=== PATIENT | male | born 1930 | race Caucasian/White ===

== ENCOUNTER 2017-04-29 10:53 | Inpatient (IN) | payer MEDICARE, OTHER ==
--- NOTE | 2017-04-29 11:25 | ED Physician Chart ---
ED Chief Complaint/HPI - Patient Information Date Seen:: 04/29/17 Time Seen:: 11:05 Chief Complaint:: Agitation History of Present Illness:: onset x 2 days of agitation and combative behavior; no report of SIs, trauma, H/ As, neck pain, C/P, SOB, Abd. Pain, A/N/V/D/C, fever, chills, or urinary s/s Allergies:: Allergies Allergy/AdvReac Type Severity Reaction Status Date / Time clonazepam Allergy Verified 04/29/17 11:09 Vitals:: Vital Signs - 8 hr 04/29/17 11:09 Temp 96.1 F HR 60 RR 18 BP 119/62 O2 Sat % 92 Historian:: Patient Review:: Nurse's Note Reviewed ED Review of Systems - Review of Systems General/Constitutional: No fever, No chills, No weight loss, No weakness, No diaphoresis, No edema, No loss of appetite Skin: No skin lesions, No rash, No bruising Head: No headache, No light-headedness Eyes: No loss of vision, No pain, No diplopia ENT: No earache, No nasal drainage, No sore throat, No tinnitus Neck: No neck pain, No swelling, No thyromegaly, No stiffness, No mass noted Cardio Vascular: No chest pain, No palpitations, No PND, No orthopnea, No edema Pulmonary: No SOB, No cough, No sputum, No wheezing GI: No nausea, No vomiting, No diarrhea, No pain, No melena, No hematochezia, No constipation, No hematemesis G/U: No dysuria, No frequency, No hematuria, No nacturia Musculoskeletal: No bone or joint pain, No back pain, No muscle pain Endocrine: No polyuria, No polydipsia Psychiatric: Prior psych history, No depression, No anxiety, No suicidal ideation, No homicidal ideation, No auditory hallucination, No visual hallucination Hematopoietic: No bruising, No lymphadenopathy Allergic/Immuno: No urticaria, No angioedema Neurological: No syncope, No focal symptoms, No weakness, No paresthesia, No headache, No seizure, No dizziness, Confusion, No vertigo ED Past Medical History - Past Medical History Obtainable: Yes Past Medical History: HTN, CAD, Thyroid disorder, Arthritis, Dementia, Other ( BPH) Family History: Diabetes Melitus, HTN Social History: Non Smoker, No Alcohol, No Drug Use, Single Surgical History: None Psychiatricy History: Dementia Medication: Reviewed ED Physical Exam - Physical Examination General/Constitutional: Awake, Well-developed, well-nourished, Alert, No distress, GCS 15, Non-toxic appearing, Ambulatory Head: Atraumatic Eyes: Lids, conjuctiva normal, PERRL, EOMI Skin: Nl inspection, No rash, No skin lesions, No ecchymosis, Well hydrated, No lymphadenopathy ENMT: External ears, nose nl, TM canals nl, Nasal exam nl, Lips, teeth, gums nl , Oropharynx nl, Tonsils nl Neck: Nontender, Full ROM w/o pain, No JVD, No nuchal rigidity, No bruit, No mass, No stridor Respiratory: Nl effort/Exclusion, Clear to Auscultation, No Wheeze/Rhonchi/Rales Cardio Vascular: No murmur, gallop, rubs, NL S1 S2, Carotid/Femoral/Distal pulses equal bilaterally Other Cardio Vascular comments:: Irregular Irregular Rhythm GI: No tenderness/rebounding/guarding, No organomegaly, No hernia, Normal BS's, Nondistended, No mass/bruits, No McBurney tenderness : No CVA tenderness Extremities: No tenderness or effusion, Full ROM, normal strength in all extremities, No edema, Normal digits & nails Neuro/Psych: DTR's symmetric, Normal sensory exam, Normal motor strength, Mood normal, Normal gait, No focal deficits Other Neuro/Psych comments:: Disoriented and Confused; + Psychomotor Agitation; no SIs Misc: Normal back, No paraspinal tenderness ED Labs/Radiology/EKG Results - Lab Results Comments:: unremarkable - EKG Interpretations EKG Time:: 11:35 Rate & Rhythm: 81; Atrial fibrillation Comments:: non-specific st-t changes ED Septic Shock - . Is Septic Shock (SBP<90, OR Lactate>4 mmol\L) present?: No - <6hrs of presentation: Vital Signs: Vital Signs - 8 hr 04/29/17 11:09 Temp 96.1 F HR 60 RR 18 BP 119/62 O2 Sat % 92 ED Reassessment (Disposition) - Reassessment Reassessment Condition:: Improved - Diagnosis Diagnosis:: Chronic Atrial Fibrillation; Bipolar Disorder; Medically Cleared; Agitation - Aftercare/Follow up Instructions Aftercare/Follow-Up Instructions:: Counseled pt regarding lab results/diagnosis & need follow up, Counseled pt & family regarding lab results/diagnosis & need follow up - Patient Disposition Discharge/Transfer:: Acute Care w/in this hosp Admitted to:: [facility] Condition at Disposition:: Stable, Improved ED Discharge Plan - Patient Disposition Instructions: Psychosis
[2017-04-29 12:09] LABS: EOSINOPHILE ABSOLUTE 0.1 Th/cmm (0.1-0.4); HEMATOCRIT 42.9 % (41.0-60); HEMOGLOBIN 14.3 gm/dL (12-16); LYMPHOCYTE ABSOLUTE 1.7 Th/cmm (1.5-3.0); MEAN CELL VOLUME 97.8 fl (80-99); MEAN CORPUSCULAR HEMOGLOBIN 32.6 pg (27.0-31.0); MEAN CORPUSCULAR HGB CONC 33.3 pg (28.0-36.0); MEAN PLATELET VOLUME 10.8 fl; MONOCYTE ABSOLUTE 0.9 Th/cmm (0.3-1.0); NEUTROPHILE ABSOLUTE 1.8 Th/cmm (1.8-8.0); PLATELET COUNT 106 Th/cmm (150-400); RED BLOOD COUNT 4.39 Mil/cmm (3.80-5.80); RED CELL DISTRIBUTION WIDTH 14.7 % (11.5-20.0); WHITE BLOOD COUNT 4.5 Th/cmm (4.8-10.8)
[2017-04-29 12:14] LABS: ACETAMINOPHEN < 10.0 ug/mL (10.0-30.0); ALB/GLOB RATIO 1.1 (1.0-1.8); ALBUMIN 2.9 gm/dL (4.2-5.5); ALKALINE PHOSPHATASE 45 U/L (34-104); ANION GAP 8.3 (7.0-16.0); BILIRUBIN,TOTAL 1.6 mg/dL (0.3-1.0); BUN - UREA NITROGEN 16 mg/dL (7-25); CALCIUM SERUM 8.4 mg/dL (8.6-10.3); CARBON DIOXIDE 26.4 mEq/L (21.0-31.0); CHLORIDE 106 mEq/L (98-107); CHOLESTEROL 129 mg/dL (<200); CREATININE - SERUM 0.9 mg/dL (0.7-1.3); GLUCOSE 99 mg/dL (70-105); HDL -HIGH DENSITY LIPOPROTEIN 35 mg/dL (23-92); POTASSIUM SERUM 3.7 mEq/L (3.5-5.1); SALICYLATES (ASPIRIN) < 25.0 mg/L (30.0-100.0); SGOT 24 U/L (13-39); SGPT/ALT 11 U/L (7-52); SODIUM SERUM 137 mEq/L (136-145); TOTAL PROTEIN,SERUM 5.6 gm/dL (6.0-8.3); TRIGLYCERIDES 64 mg/dL (<150)
[2017-04-29 13:02] VITALS: BP 124/72
[2017-04-29] MEDS ORDERED: Maalox 30 mL Cup PO PRN (13:02)
[2017-04-29] MEDS ORDERED: Magnesium Hydroxide (MOM) 30 mL UDC PO PRN (13:02)
--- NOTE | 2017-04-29 17:29 | History and Physical ---
History of Present Illness - HPI Chief Complaint: agitation HPI: This is a 87 year old male admitted to the geropsych unit due to agitation and agression towards nursing staff. Vital Signs: Last Vital Signs Temp 97.3 F 04/29/17 16:26 Pulse 107 04/29/17 16:26 Resp 20 04/29/17 16:26 BP 91/53 04/29/17 16:26 Pulse Ox 97 04/29/17 16:26 Past Medical History Other History: htn cad hypothyroid arthritis dementia bph Family Medical History - Family Member Mother History Unknown: Yes Social History Smoke: No Alcohol: None Drugs: None Lives: Custodial - Medications Home Medications: Home Medication Medication Instructions Recorded Type Aspirin EC [Ecotrin] 81 mg PO DAILY 04/29/17 History Beclomethasone Dipropionate [Qvar] 8.7 gm IH DAILY 04/29/17 History Cholecalciferol (Vitamin D3) 5,000 unit PO DAILY 04/29/17 History [Vitamin D3] Divalproex Sodium [Depakote] 125 mg PO BID 04/29/17 History Donepezil Hcl [Aricept] 5 mg PO DAILY 04/29/17 History Levothyroxine [Synthroid] 0.05 mg PO QDAC 04/29/17 History Loratadine [Claritin] 10 mg PO DAILY 04/29/17 History Metoprolol Tartrate [Lopressor] 50 mg PO BID 04/29/17 History Tamsulosin [Flomax] 0.4 mg PO DAILY 04/29/17 History - Allergies Allergies/Adverse Reactions: Allergies Allergy/AdvReac Type Severity Reaction Status Date / Time clonazepam Allergy Verified 04/29/17 11:09 Review of Systems - Review of Systems Constitutional: Report: No Significant Eyes: Report: No Significant ENT: Report: No Significant Respiratory: Report: No Significant Cardiovascular: Report: No Significant Gastrointestinal: Report: No Significant Genitourinary: Report: No Significant Musculoskeletal: Report: No Significant Skin: Report: No Significant Neurological: Report: No Significant Physical Exam - Physical Exam HEENT: Report: Ears Nose Throat within normal limits Neck: Report: Within normal limits Cardiovascular Systems: Report: +s1/s2 noted Respiratory: Report: Breath Sounds are within normal limits Abdomen: Report: Non-tender to palpation Back: Report: Inspection of back is within normal limits. Extremities: Report: Non-tender to palpation. Skin: Report: Color of skin is within normal limits Neuro/Psych: Report: Mood affect is within normal limits - Assessment Assessment: Current Active Problems Problem Status Onset INCREASED AGITATION AND POOR ORAL INTAKE Acute htn cad hypothyroid arthritis dementia bph - Plan Plan: monitor bp monitor i+o continue current orders
[2017-04-30] MEDS: Levothyroxine 0.05 Mg Tab PO SCH (06:58)
[2017-04-30] MEDS ORDERED: BECLOMETHASONE DIPROPIONATE 8.7 GM IH SCH (09:00)
[2017-04-30] MEDS: Multivitamin Tab PO SCH (09:51)
--- NOTE | 2017-04-30 11:57 | General Progress Note ---
Subjective - Review of Systems Events since last encounter: patient still confused irritable in no signs of pain Objective - Results Result Diagrams: 04/29/17 11:35 04/29/17 11:35 Recent Labs: Laboratory Last Values WBC 4.5 Th/cmm (4.8-10.8) L 04/29/17 11:35 RBC 4.39 Mil/cmm (3.80-5.80) 04/29/17 11:35 Hgb 14.3 gm/dL (12-16) 04/29/17 11:35 Hct 42.9 % (41.0-60) 04/29/17 11:35 MCV 97.8 fl (80-99) 04/29/17 11:35 MCH 32.6 pg (27.0-31.0) H 04/29/17 11:35 MCHC Differential 33.3 pg (28.0-36.0) 04/29/17 11:35 RDW 14.7 % (11.5-20.0) 04/29/17 11:35 Plt Count 106 Th/cmm (150-400) L 04/29/17 11:35 MPV 10.8 fl 04/29/17 11:35 Sodium 137 mEq/L (136-145) 04/29/17 11:35 Potassium 3.7 mEq/L (3.5-5.1) 04/29/17 11:35 Chloride 106 mEq/L (98-107) 04/29/17 11:35 Carbon Dioxide 26.4 mEq/L (21.0-31.0) 04/29/17 11:35 Anion Gap 8.3 (7.0-16.0) 04/29/17 11:35 BUN 16 mg/dL (7-25) 04/29/17 11:35 Creatinine 0.9 mg/dL (0.7-1.3) 04/29/17 11:35 Est GFR ( Amer) TNP 04/29/17 11:35 Est GFR (Non-Af Amer) TNP 04/29/17 11:35 BUN/Creatinine Ratio 17.8 04/29/17 11:35 Glucose 99 mg/dL (70-105) 04/29/17 11:35 Hemoglobin A1c % 6.0 % (4.0-6.0) 04/29/17 11:35 Calcium 8.4 mg/dL (8.6-10.3) L 04/29/17 11:35 Total Bilirubin 1.6 mg/dL (0.3-1.0) H 04/29/17 11:35 AST 24 U/L (13-39) 04/29/17 11:35 ALT 11 U/L (7-52) 04/29/17 11:35 Alkaline Phosphatase 45 U/L (34-104) 04/29/17 11:35 Total Protein 5.6 gm/dL (6.0-8.3) L 04/29/17 11:35 Albumin 2.9 gm/dL (4.2-5.5) L 04/29/17 11:35 Globulin 2.7 gm/dL 04/29/17 11:35 Albumin/Globulin Ratio 1.1 (1.0-1.8) 04/29/17 11:35 Triglycerides 64 mg/dL (<150) 04/29/17 11:35 Cholesterol 129 mg/dL (<200) 04/29/17 11:35 LDL Cholesterol Direct 90 mg/dL (75-193) 04/29/17 11:35 HDL Cholesterol 35 mg/dL (23-92) 04/29/17 11:35 TSH 3.88 uIU/ml (0.34-5.60) 04/29/17 11:35 Salicylates < 25.0 mg/L (30.0-100.0) L 04/29/17 11:35 Acetaminophen < 10.0 ug/mL (10.0-30.0) L 04/29/17 11:35 Ethyl Alcohol < 10 mg/dL (0-10) 04/29/17 11:35 - Physical Exam Vitals and I&O: Vital Signs Temp 97.6 F 04/30/17 07:03 Pulse 98 04/30/17 07:03 Resp 20 04/30/17 07:03 BP 110/80 04/29/17 20:00 Pulse Ox 98 04/30/17 07:03 Intake & Output 04/29/17 04/30/17 04/30/17 18:59 06:59 18:59 Intake Total 370 Balance 370 Intake: Oral 370 Other: # Voids 1 # Bowel Movements 0 Active Medications: Current Medications Acetaminophen (Tylenol) 650 mg PO Q4HR PRN PRN Reason: Mild Pain / Temp above 100 Stop: 06/28/17 13:01 Al Hydrox/Mg Hydrox/Simethicone (Maalox) 30 ml PO Q4HR PRN PRN Reason: GI DISTRESS Stop: 06/28/17 13:01 Aspirin (Ecotrin) 81 mg PO DAILY [facility] Stop: 06/29/17 08:59 Last Admin: 04/30/17 09:51 Dose: 81 mg Cholecalciferol (Vitamin D3) 5,000 iu PO DAILY [facility] Stop: 06/29/17 08:59 Last Admin: 04/30/17 09:50 Dose: 5,000 iu Divalproex Sodium (Depakote Dr) 125 mg PO BID [facility] PRN Reason: Protocol Stop: 06/28/17 16:59 Last Admin: 04/30/17 09:51 Dose: 125 mg Donepezil HCl (Aricept) 5 mg PO DAILY [facility] Stop: 06/29/17 08:59 Last Admin: 04/30/17 09:51 Dose: 5 mg Levothyroxine Sodium (Synthroid) 0.05 mg PO QDAC [facility] Stop: 06/29/17 07:29 Last Admin: 04/30/17 06:58 Dose: Not Given Loratadine (Claritin) 10 mg PO DAILY [facility] Stop: 06/29/17 08:59 Last Admin: 04/30/17 09:51 Dose: 10 mg Lorazepam (Ativan) 0.5 mg PO Q4HR PRN; Protocol PRN Reason: Anxiety Stop: 05/29/17 13:01 Magnesium Hydroxide (Milk Of Magnesia) 30 ml PO HS PRN PRN Reason: Constipation Metoprolol Tartrate (Lopressor) 50 mg PO BID [facility] Stop: 06/28/17 16:59 Last Admin: 04/29/17 16:33 Dose: Not Given Miscellaneous (Beclomethasone Dipropionate [Qvar]) 8.7 gm IH DAILY [facility] Stop: 06/29/17 08:59 Multivitamins/Vitamin C (Theragran) 1 tab PO DAILY [facility] Stop: 06/29/17 08:59 Last Admin: 04/30/17 09:51 Dose: 1 tab Tamsulosin HCl (Flomax) 0.4 mg PO DAILY [facility] Stop: 06/29/17 08:59 Last Admin: 04/30/17 09:51 Dose: 0.4 mg Zolpidem Tartrate (Ambien) 5 mg PO HS PRN PRN Reason: Insomnia Stop: 06/28/17 13:01 General: No acute distress HEENT: Atraumatic Neck: Supple, no Thyromegaly Cardiovascular: Regular rate, Normal S1, Normal S2 Abdomen: Bowel sounds Assessment/Plan - Problem List Patient Problems: All Active Problems INCREASED AGITATION AND POOR ORAL INTAKE (Acute) - Plan Plan: as per psych will monitor
[2017-05-01] MEDS: Levothyroxine 0.05 Mg Tab PO SCH (06:49)
--- NOTE | 2017-05-01 10:01 | General Progress Note ---
Subjective - Review of Systems Events since last encounter: no change Objective - Results Result Diagrams: 04/29/17 11:35 04/29/17 11:35 Recent Labs: Laboratory Last Values WBC 4.5 Th/cmm (4.8-10.8) L 04/29/17 11:35 RBC 4.39 Mil/cmm (3.80-5.80) 04/29/17 11:35 Hgb 14.3 gm/dL (12-16) 04/29/17 11:35 Hct 42.9 % (41.0-60) 04/29/17 11:35 MCV 97.8 fl (80-99) 04/29/17 11:35 MCH 32.6 pg (27.0-31.0) H 04/29/17 11:35 MCHC Differential 33.3 pg (28.0-36.0) 04/29/17 11:35 RDW 14.7 % (11.5-20.0) 04/29/17 11:35 Plt Count 106 Th/cmm (150-400) L 04/29/17 11:35 MPV 10.8 fl 04/29/17 11:35 Sodium 137 mEq/L (136-145) 04/29/17 11:35 Potassium 3.7 mEq/L (3.5-5.1) 04/29/17 11:35 Chloride 106 mEq/L (98-107) 04/29/17 11:35 Carbon Dioxide 26.4 mEq/L (21.0-31.0) 04/29/17 11:35 Anion Gap 8.3 (7.0-16.0) 04/29/17 11:35 BUN 16 mg/dL (7-25) 04/29/17 11:35 Creatinine 0.9 mg/dL (0.7-1.3) 04/29/17 11:35 Est GFR ( Amer) TNP 04/29/17 11:35 Est GFR (Non-Af Amer) TNP 04/29/17 11:35 BUN/Creatinine Ratio 17.8 04/29/17 11:35 Glucose 99 mg/dL (70-105) 04/29/17 11:35 Hemoglobin A1c % 6.0 % (4.0-6.0) 04/29/17 11:35 Calcium 8.4 mg/dL (8.6-10.3) L 04/29/17 11:35 Total Bilirubin 1.6 mg/dL (0.3-1.0) H 04/29/17 11:35 AST 24 U/L (13-39) 04/29/17 11:35 ALT 11 U/L (7-52) 04/29/17 11:35 Alkaline Phosphatase 45 U/L (34-104) 04/29/17 11:35 Total Protein 5.6 gm/dL (6.0-8.3) L 04/29/17 11:35 Albumin 2.9 gm/dL (4.2-5.5) L 04/29/17 11:35 Globulin 2.7 gm/dL 04/29/17 11:35 Albumin/Globulin Ratio 1.1 (1.0-1.8) 04/29/17 11:35 Triglycerides 64 mg/dL (<150) 04/29/17 11:35 Cholesterol 129 mg/dL (<200) 04/29/17 11:35 LDL Cholesterol Direct 90 mg/dL (75-193) 04/29/17 11:35 HDL Cholesterol 35 mg/dL (23-92) 04/29/17 11:35 TSH 3.88 uIU/ml (0.34-5.60) 04/29/17 11:35 Salicylates < 25.0 mg/L (30.0-100.0) L 04/29/17 11:35 Acetaminophen < 10.0 ug/mL (10.0-30.0) L 04/29/17 11:35 Valproic Acid 23.6 ug/mL (50.0-100.0) L 05/01/17 08:30 Ethyl Alcohol < 10 mg/dL (0-10) 04/29/17 11:35 - Physical Exam Vitals and I&O: Vital Signs Temp 97.3 F 04/30/17 20:00 Pulse 100 04/30/17 20:00 Resp 19 04/30/17 20:00 BP 106/60 04/30/17 20:00 Pulse Ox 90 04/30/17 20:00 Intake & Output 04/30/17 05/01/17 05/01/17 18:59 06:59 18:59 Intake Total 250 Balance 250 Intake: Oral 250 Other: # Voids 2 # Bowel Movements 1 Active Medications: Current Medications Acetaminophen (Tylenol) 650 mg PO Q4HR PRN PRN Reason: Mild Pain / Temp above 100 Stop: 06/28/17 13:01 Al Hydrox/Mg Hydrox/Simethicone (Maalox) 30 ml PO Q4HR PRN PRN Reason: GI DISTRESS Stop: 06/28/17 13:01 Aspirin (Ecotrin) 81 mg PO DAILY [facility] Stop: 06/29/17 08:59 Last Admin: 04/30/17 09:51 Dose: 81 mg Cholecalciferol (Vitamin D3) 5,000 iu PO DAILY [facility] Stop: 06/29/17 08:59 Last Admin: 04/30/17 09:50 Dose: 5,000 iu Divalproex Sodium (Depakote Dr) 125 mg PO BID [facility] PRN Reason: Protocol Stop: 06/28/17 16:59 Last Admin: 04/30/17 16:56 Dose: 125 mg Donepezil HCl (Aricept) 10 mg PO DAILY [facility] Stop: 06/29/17 08:59 Levothyroxine Sodium (Synthroid) 0.05 mg PO QDAC [facility] Stop: 06/29/17 07:29 Last Admin: 05/01/17 06:49 Dose: 0.05 mg Loratadine (Claritin) 10 mg PO DAILY [facility] Stop: 06/29/17 08:59 Last Admin: 04/30/17 09:51 Dose: 10 mg Lorazepam (Ativan) 0.5 mg PO Q4HR PRN; Protocol PRN Reason: Anxiety Stop: 05/29/17 13:01 Magnesium Hydroxide (Milk Of Magnesia) 30 ml PO HS PRN PRN Reason: Constipation Metoprolol Tartrate (Lopressor) 50 mg PO BID [facility] Stop: 06/28/17 16:59 Last Admin: 04/30/17 16:56 Dose: Not Given Miscellaneous (Beclomethasone Dipropionate [Qvar]) 8.7 gm IH DAILY [facility] Stop: 06/29/17 08:59 Multivitamins/Vitamin C (Theragran) 1 tab PO DAILY [facility] Stop: 06/29/17 08:59 Last Admin: 04/30/17 09:51 Dose: 1 tab Tamsulosin HCl (Flomax) 0.4 mg PO DAILY [facility] Stop: 06/29/17 08:59 Last Admin: 04/30/17 09:51 Dose: 0.4 mg Zolpidem Tartrate (Ambien) 5 mg PO HS PRN PRN Reason: Insomnia Stop: 06/28/17 13:01 General: No acute distress HEENT: Atraumatic Neck: Supple, no Thyromegaly Cardiovascular: Regular rate, Normal S1, Normal S2 Abdomen: Bowel sounds Assessment/Plan - Problem List Patient Problems: All Active Problems INCREASED AGITATION AND POOR ORAL INTAKE (Acute) - Plan Plan: as per psych will monitor
[2017-05-01] MEDS: Multivitamin Tab PO SCH (10:18)
[2017-05-01] MEDS ORDERED: Albuterol/Ipratropium Neb 3 ML AERS HHN PRN (12:40)
--- NOTE | 2017-05-01 20:22 | Psychosocial Evaluation ---
DATE OF SERVICE: 04/30/2017 AGE: 87. SEX: Male. PHYSICIAN: Dr. Hurst. CHIEF COMPLAINT: Confusion and agitation. HISTORY OF PRESENT ILLNESS: The patient is an 87-year-old Fijian speaking male, who was admitted to the hospital from home because of increased agitation and confusion. The patient has been easily agitated and easily irritable. Also, has been suspicious and paranoid. Also, has been threatening others, mumbling, and unable to follow up staff directions or directions from people at home. He also has been disoriented and has been having disorganized thoughts. PAST PSYCHIATRIC HISTORY: Noncontributory. PAST MEDICAL HISTORY: No major medical problems. SOCIAL HISTORY: The patient lives with his family. No known alcohol or drug use. No legal issues. ALLERGIES: No known allergies. MENTAL STATUS EXAMINATION: The patient appears his stated age. Anxious. Irritable mood. Thought processes are with poverty of speech and disorganized and mumbles in Fijian language. The patient denied auditory or visual hallucinations, but seems to be responding to stimuli in Fijian language and taking to himself in Fijian language. He denied any thoughts of suicide or homicide. The patient is alert and oriented to situation, but not to date or person. Impaired immediate and recent memory, but intact remote memory and he remembered his date. Poor insight and poor judgment. ASSESSMENT: PRIMARY DIAGNOSIS: Unspecified psychosis. SECONDARY DIAGNOSIS: Rule out dementia. TREATMENT PLAN: We will monitor the patient's behavior closely. We will work on adjusting psychotropic medications. ESTIMATED LENGTH OF STAY: 5-7 days. THE PATIENT'S STRENGTHS AND WEAKNESSES: The patient's is compliant with taking his medications. Weaknesses are his confusion and ineffective coping. AFTER DISCHARGE PLAN: Outpatient treatment and followup will continue as an outpatient. CRITERIA FOR DISCHARGE: The patient will not be psychotic and stabilize psychotropic medications and establish outpatient treatment plans. JOB# [id number]
--- NOTE | 2017-05-02 01:01 | Progress Notes ---
DATE: SUBJECTIVE: Chart reviewed and ____ interviewed. The patient was a [place] speaking and also discussed the patient's condition with the staff and reviewed records and labs. The patient is still confused and he has disorganized thoughts. Also, is still mumbling and talking to himself. The patient also is still in angry and in irritable mood and refusing help. Otherwise, the patient is compliant with taking his medications and he slept well last night and he did take his Depakote with no problems. ASSESSMENT: The patient is still confused and agitated. TREATMENT PLAN: We will continue monitoring his behavior and his condition closely. Also, we will increase Aricept to 10 mg at bedtime. Also, we will get a Depakote blood level and we will continue to follow up. [facility]# [id number]
[2017-05-02] MEDS: Levothyroxine 0.05 Mg Tab PO SCH (06:31)
[2017-05-02] MEDS: Multivitamin Tab PO SCH ×2 (08:19→08:33)
--- NOTE | 2017-05-02 14:00 | Internal Medicine Prog Note ---
Internal Medicine Subjective - Subjective Service Date: 05/02/17 Patient seen and examined:: with staff Patient is:: awake, confused Per staff patient has:: tolerating meds Internal Medicine Objective - Results Result Diagrams: 04/29/17 11:35 04/29/17 11:35 Recent Labs: Laboratory Last Values WBC 4.5 Th/cmm (4.8-10.8) L 04/29/17 11:35 RBC 4.39 Mil/cmm (3.80-5.80) 04/29/17 11:35 Hgb 14.3 gm/dL (12-16) 04/29/17 11:35 Hct 42.9 % (41.0-60) 04/29/17 11:35 MCV 97.8 fl (80-99) 04/29/17 11:35 MCH 32.6 pg (27.0-31.0) H 04/29/17 11:35 MCHC Differential 33.3 pg (28.0-36.0) 04/29/17 11:35 RDW 14.7 % (11.5-20.0) 04/29/17 11:35 Plt Count 106 Th/cmm (150-400) L 04/29/17 11:35 MPV 10.8 fl 04/29/17 11:35 Sodium 137 mEq/L (136-145) 04/29/17 11:35 Potassium 3.7 mEq/L (3.5-5.1) 04/29/17 11:35 Chloride 106 mEq/L (98-107) 04/29/17 11:35 Carbon Dioxide 26.4 mEq/L (21.0-31.0) 04/29/17 11:35 Anion Gap 8.3 (7.0-16.0) 04/29/17 11:35 BUN 16 mg/dL (7-25) 04/29/17 11:35 Creatinine 0.9 mg/dL (0.7-1.3) 04/29/17 11:35 Est GFR ( Amer) TNP 04/29/17 11:35 Est GFR (Non-Af Amer) TNP 04/29/17 11:35 BUN/Creatinine Ratio 17.8 04/29/17 11:35 Glucose 99 mg/dL (70-105) 04/29/17 11:35 POC Glucose 77 MG/DL (70 - 105) 05/02/17 11:10 Hemoglobin A1c % 6.0 % (4.0-6.0) 04/29/17 11:35 Calcium 8.4 mg/dL (8.6-10.3) L 04/29/17 11:35 Total Bilirubin 1.6 mg/dL (0.3-1.0) H 04/29/17 11:35 AST 24 U/L (13-39) 04/29/17 11:35 ALT 11 U/L (7-52) 04/29/17 11:35 Alkaline Phosphatase 45 U/L (34-104) 04/29/17 11:35 Total Protein 5.6 gm/dL (6.0-8.3) L 04/29/17 11:35 Albumin 2.9 gm/dL (4.2-5.5) L 04/29/17 11:35 Globulin 2.7 gm/dL 04/29/17 11:35 Albumin/Globulin Ratio 1.1 (1.0-1.8) 04/29/17 11:35 Triglycerides 64 mg/dL (<150) 04/29/17 11:35 Cholesterol 129 mg/dL (<200) 04/29/17 11:35 LDL Cholesterol Direct 90 mg/dL (75-193) 04/29/17 11:35 HDL Cholesterol 35 mg/dL (23-92) 04/29/17 11:35 TSH 3.88 uIU/ml (0.34-5.60) 04/29/17 11:35 Salicylates < 25.0 mg/L (30.0-100.0) L 04/29/17 11:35 Acetaminophen < 10.0 ug/mL (10.0-30.0) L 04/29/17 11:35 Valproic Acid 23.6 ug/mL (50.0-100.0) L 05/01/17 08:30 Ethyl Alcohol < 10 mg/dL (0-10) 04/29/17 11:35 RPR NONREACTIVE (NONREACTIVE) 04/29/17 11:35 - Physical Exam Vitals and I&O: Vital Signs Temp 97.3 F 05/01/17 20:00 Pulse 119 05/01/17 21:18 Resp 20 05/01/17 21:18 BP 106/60 05/01/17 20:00 Pulse Ox 99 05/01/17 21:18 Intake & Output 05/01/17 05/02/17 05/02/17 18:59 06:59 18:59 Intake Total 500 120 Balance 500 120 Intake: Oral 500 120 Other: # Voids 3 2 # Bowel Movements 1 Active Medications: Current Medications Acetaminophen (Tylenol) 650 mg PO Q4HR PRN PRN Reason: Mild Pain / Temp above 100 Stop: 06/28/17 13:01 Al Hydrox/Mg Hydrox/Simethicone (Maalox) 30 ml PO Q4HR PRN PRN Reason: GI DISTRESS Stop: 06/28/17 13:01 Albuterol/Ipratropium (Duoneb Neb) 3 ml HHN Q4HRT PRN PRN Reason: Wheezing Stop: 06/30/17 12:39 Aspirin (Ecotrin) 81 mg PO DAILY [facility] Stop: 06/29/17 08:59 Last Admin: 05/02/17 08:33 Dose: Not Given Cholecalciferol (Vitamin D3) 5,000 iu PO DAILY [facility] Stop: 06/29/17 08:59 Last Admin: 05/02/17 08:33 Dose: Not Given Divalproex Sodium (Depakote Dr) 250 mg PO BID [facility] PRN Reason: Protocol Stop: 06/28/17 08:59 Last Admin: 05/02/17 08:32 Dose: Not Given Donepezil HCl (Aricept) 10 mg PO DAILY [facility] Stop: 06/29/17 08:59 Last Admin: 05/02/17 08:32 Dose: Not Given Levothyroxine Sodium (Synthroid) 0.05 mg PO QDAC [facility] Stop: 06/29/17 07:29 Last Admin: 05/02/17 06:31 Dose: Not Given Loratadine (Claritin) 10 mg PO DAILY [facility] Stop: 06/29/17 08:59 Last Admin: 05/02/17 08:33 Dose: Not Given Lorazepam (Ativan) 0.5 mg PO Q4HR PRN; Protocol PRN Reason: Anxiety Stop: 05/29/17 13:01 Last Admin: 05/01/17 16:06 Dose: 0.5 mg Magnesium Hydroxide (Milk Of Magnesia) 30 ml PO HS PRN PRN Reason: Constipation Metoprolol Tartrate (Lopressor) 50 mg PO BID [facility] Stop: 06/28/17 16:59 Last Admin: 05/02/17 08:32 Dose: Not Given Multivitamins/Vitamin C (Theragran) 1 tab PO DAILY [facility] Stop: 06/29/17 08:59 Last Admin: 05/02/17 08:33 Dose: Not Given Tamsulosin HCl (Flomax) 0.4 mg PO DAILY [facility] Stop: 06/29/17 08:59 Last Admin: 05/02/17 08:33 Dose: Not Given Zolpidem Tartrate (Ambien) 5 mg PO HS PRN PRN Reason: Insomnia Stop: 06/28/17 13:01 General: alert HEENT: NC/AT, PERRLA Neck: Supple Cardiovascular: RRR, Normal S1, Normal S2 Abdomen: soft, non-tender, non-distended, positive bowel sound Neurological: alert Internal Medicine Assmt/Plan - Assessment Assessment: Current Active Problems Problem Status Onset INCREASED AGITATION AND POOR ORAL INTAKE Acute htn cad hypothyroid arthritis dementia bph - Plan Plan: monitor bp monitor i+o continue current orders
--- NOTE | 2017-05-03 01:47 | Progress Notes ---
DATE: 05/02/2017 Chart reviewed and the patient interviewed. Also discussed the patient's condition with the staff and reviewed records and labs. The patient continued to be confused and disorganized. The patient also is still suspicious and paranoid and he is still easily agitated. He also is still in irritable mood. Also, has difficulty following directions. Otherwise, the patient is cooperative with treatment and compliant with taking his medications. ASSESSMENT: The patient is still psychotic. TREATMENT PLAN: Depakote blood level that was done yesterday, came back to be 23.6, which is below therapeutic level. We will increase Depakote to 250 mg twice a day and we will monitor the dose. Also, we will continue to work on his confusion. JOB# [id number]
[2017-05-03] MEDS: Levothyroxine 0.05 Mg Tab PO SCH (06:34)
[2017-05-03] MEDS: Multivitamin Tab PO SCH (08:40)
--- NOTE | 2017-05-03 18:35 | Progress Notes ---
DATE: 05/03/2017 SUBJECTIVE: The patient was seen in his room, lying in the bed. The patient is asleep but easily arousable. Otherwise the patient appears to be comfortable in no acute distress. OBJECTIVE: VITAL SIGNS: Temperature 97.6, heart rate of 88, respiration of 20, blood pressure 106/64, 98% on room air: HEENT: Head is atraumatic, normocephalic. Eyes: Bilateral conjunctivae are clear. Bilateral pupils are equally round and reactive. NECK: Supple. No JVD. CARDIOVASCULAR: S1 and S2, without murmur. PULMONARY: Clear to auscultation. GASTROINTESTINAL: Soft and nontender without guarding. Positive bowel sounds. MUSCULOSKELETAL: No clubbing, no cyanosis noted. ASSESSMENT: 1. Dementia. 2. Hypertension. 3. Hypothyroidism. 4. Osteoarthritis. 5. Benign prostatic hypertrophy. 6. Coronary artery disease. PLAN: We will keep the patient ____. JOB# [id number]
[2017-05-03 19:41] LABS: EOSINOPHILE ABSOLUTE 0.1 Th/cmm (0.1-0.4); HEMATOCRIT 45.4 % (41.0-60); HEMOGLOBIN 15.2 gm/dL (12-16); LYMPHOCYTE ABSOLUTE 1.4 Th/cmm (1.5-3.0); MANUAL DIFF REQUIRED? YES; MEAN CELL VOLUME 98.3 fl (80-99); MEAN CORPUSCULAR HEMOGLOBIN 32.9 pg (27.0-31.0); MEAN CORPUSCULAR HGB CONC 33.4 pg (28.0-36.0); MEAN PLATELET VOLUME 10.7 fl; MONOCYTE ABSOLUTE 0.9 Th/cmm (0.3-1.0); PLATELET COUNT 115 Th/cmm (150-400); RED BLOOD COUNT 4.62 Mil/cmm (3.80-5.80); RED CELL DISTRIBUTION WIDTH 15.4 % (11.5-20.0); WHITE BLOOD COUNT 5.4 Th/cmm (4.8-10.8)
[2017-05-03 19:52] LABS: ANION GAP 9.9 (7.0-16.0); BUN - UREA NITROGEN 15 mg/dL (7-25); CALCIUM SERUM 8.8 mg/dL (8.6-10.3); CARBON DIOXIDE 27.1 mEq/L (21.0-31.0); CHLORIDE 104 mEq/L (98-107); CREATININE - SERUM 0.7 mg/dL (0.7-1.3); GLUCOSE 132 mg/dL (70-105); SODIUM SERUM 137 mEq/L (136-145)
--- NOTE | 2017-05-03 20:00 | ER Physician Documentation ---
DATE OF SERVICE: LOCATION: [place] [address]. Rapid response was called, I came in to see the patient, the nurses were at the bedside, the supervisor coal handling was also at the bedside. The patient's rhythm was rapid atrial fibrillation. According to the nurse, oxygen saturation did fall down to below 80 and then it immediately within a matter of 1 or 2 minutes it again came back to normal. The patient was connected to the security monitor, it showed atrial flutter/fibrillation and the heart rate was around 135-140 beats per minute. According to the nurse, the patient is not taking his medication and so from morning, the patient has not been taking any of his medication, especially Lopressor that he is supposed to take for his atrial fibrillation to control his ventricular response. The patient is calm and poised. The patient was sitting on the wheelchair or so, then put in the bed. He is awake, alert, oriented. PHYSICAL EXAMINATION: GENERAL: Showed that he is comfortable. He has no edema over the legs. No gross congestive heart failure. CHEST: Clear. Trachea being central. Fairly good air entry in both lungs. HEART: Irregularly irregular heart sounds. S1, S2 are normal. Fourth heart sound is absent. Third heart sound is absent. ABDOMEN: Soft, benign and negative. CENTRAL NERVOUS SYSTEM: Grossly, the patient has psychiatric condition that exists as usual. CLINICAL IMPRESSION: The patient got a rapid response, probably on account of hypoxia, the reason for hypoxia is unknown. The patient has come back to 100% oxygen saturation and we will get blood gas done, chest x-ray done, EKG done and the labs done and give him some Lopressor 50 mg to start with, and the patient has other medical problems, psychiatric that will be continued. Informed the nurse to give the medication at the present moment. JOB# [id number]
[2017-05-03 20:11] LABS: EOSINOPHIL 2 % (0-5); LYMPHOCYTE 24 % (20-50); MONOCYTE 15 % (2-10); NEUTROPHILS 59 % (40-80)
[2017-05-03 20:12] LABS: PLATELET ESTIMATE SLIGHT DECREASED (NORMAL); PLATELET MORPHOLOGY NORMAL (NORMAL)
--- NOTE | 2017-05-03 23:16 | Progress Notes ---
DATE: 05/03/2017 SUBJECTIVE: The patient was seen in his room, lying in the bed. The patient is asleep, but he is arousable, otherwise the patient appears to be comfortable in no acute distress. The patient is a poor historian due to medical condition. OBJECTIVE: VITAL SIGNS: Temperature 98.8, heart rate 88, respiration 20, blood pressure 106/64, 98% on room air. HEENT: Head is atraumatic and normocephalic. Eyes: Bilateral conjunctivae are clear. Bilateral pupils are equally round and reactive. NECK: Supple. No JVD. CARDIOVASCULAR: S1 and S2, without murmur. PULMONARY: Clear to auscultation. GASTROINTESTINAL: Soft and nontender without guarding. Positive bowel sounds. MUSCULOSKELETAL: No clubbing, no cyanosis noted. ASSESSMENT: 1. Dementia. 2. Hypertension. 3. Hypothyroidism. 4. Osteoarthritis. 5. Benign prostatic hypertrophy. 6. Coronary artery disease. PLAN: We will keep the patient inpatient. We will follow up with the psychiatrist to monitor the patient's condition and behavior. Treatment and plans were discussed with the patient's nurse. Treatment and plans were discussed with Dr. Madrid. JOB# [id number]
[2017-05-04 00:16] LABS: pH 7.45 (7.35-7.45)
[2017-05-04 00:17] LABS: ALLEN TEST yes
--- NOTE | 2017-05-04 08:27 | Diagnostic Imaging Report ---
Exam: Chest x-ray HISTORY: Pneumonia. Findings: Frontal examination of the chest was reviewed no prior studies available comparison Thorax is intact. Mediastinal structures midline the heart is enlarged. There is evidence for right lower lobe pneumonia superimposed effusion. Mild left basilar atelectasis is noted. Bony thorax intact. The aortic arch calcified. IMPRESSION: Right lower lobe pneumonia and effusion. Left basilar atelectasis, pleural thickening. Hiatal hernia cannot be excluded clinical correlation and lateral examination of the chest might be helpful.
== END 2017-05-03 22:37 | DRG 885 ==
LOC: ER 10:53 → GERO 12:41
PROVIDERS: ADMIT Psychiatry & Neurology Psychiatry; ATTEND Psychiatry & Neurology Psychiatry
DX: F29 Unspecified psychosis not due to a substance or known physiological condition (principal); F03.91 Unspecified dementia, unspecified severity, with behavioral disturbance; I48.2 Chronic atrial fibrillation; I48.92 Unspecified atrial flutter; I10 Essential (primary) hypertension; I25.10 Atherosclerotic heart disease of native coronary artery without angina pectoris; E03.9 Hypothyroidism, unspecified; R09.02 Hypoxemia; M19.90 Unspecified osteoarthritis, unspecified site; F31.9 Bipolar disorder, unspecified; N40.0 Benign prostatic hyperplasia without lower urinary tract symptoms; Z88.8 Allergy status to other drugs, medicaments and biological substances; Z83.3 Family history of diabetes mellitus; Z82.49 Family history of ischemic heart disease and other diseases of the circulatory system; Z79.82 Long term (current) use of aspirin
CPT/HCPCS: 36415-UA; 71045-TC; 80048-TC; 80053-TC; 80061-TC; 80164-TC; 80320-TC; 80329-TC; 82803-TC; 82948-90; 83036-90; 83735-TC; 84443-TC; 85007-TC; 85025-TC; 85027-TC; 86592-TC; 93005; 94760; Z7610

== ENCOUNTER 2017-05-03 22:37 | Inpatient (IN) | payer MEDICARE, OTHER ==
--- NOTE | 2017-05-03 23:43 | Progress Notes ---
DATE: SUBJECTIVE: Chart reviewed and the patient interviewed. Also discussed the patient's condition with the staff and reviewed the records and labs. The patient did not sleep most of last night and he has been agitated. The patient also has been getting out of room and take it and has difficulty following staff instructions and gets agitated when staff tries to redirect him. He also is trying to get off the bed exposing himself to fall. Also, still mumbling and he is having difficulty expressing himself and expressing his feelings. On the other hand, the patient is compliant with taking medications with no side effect of medications. ASSESSMENT: The patient is still agitated and psychotic. TREATMENT PLAN: Continue to monitor his behavior and his condition closely. Also, continue to work on his irritability and continued followup. JOB# [id number]
[2017-05-03] MEDS ORDERED: Levofloxacin 500mg/100mL 500 MG/100 ML BAG IV ONE (23:45)
[2017-05-03] MEDS ORDERED: Sodium Chloride 0.45% 1,000 ML IV SCH (23:49)
[2017-05-04] MEDS ORDERED: Sodium Chloride 0.9% 500 ML IV ONE
[2017-05-04 00:06] LABS: EOSINOPHILE ABSOLUTE 0.1 Th/cmm (0.1-0.4); HEMATOCRIT 44.9 % (41.0-60); HEMOGLOBIN 15.1 gm/dL (12-16); LYMPHOCYTE ABSOLUTE 1.2 Th/cmm (1.5-3.0); MEAN CELL VOLUME 97.9 fl (80-99); MEAN CORPUSCULAR HEMOGLOBIN 32.8 pg (27.0-31.0); MEAN CORPUSCULAR HGB CONC 33.5 pg (28.0-36.0); MEAN PLATELET VOLUME 9.9 fl; NEUTROPHILE ABSOLUTE 2.5 Th/cmm (1.8-8.0); PLATELET COUNT 121 Th/cmm (150-400); RED BLOOD COUNT 4.59 Mil/cmm (3.80-5.80); RED CELL DISTRIBUTION WIDTH 15.7 % (11.5-20.0); WHITE BLOOD COUNT 4.8 Th/cmm (4.8-10.8)
[2017-05-04 00:25] LABS: ALB/GLOB RATIO 1.1 (1.0-1.8); ALBUMIN 3.5 gm/dL (4.2-5.5); ALKALINE PHOSPHATASE 62 U/L (34-104); ANION GAP 10.7 (7.0-16.0); BILIRUBIN,TOTAL 1.8 mg/dL (0.3-1.0); BUN - UREA NITROGEN 15 mg/dL (7-25); CALCIUM SERUM 9.2 mg/dL (8.6-10.3); CARBON DIOXIDE 27.9 mEq/L (21.0-31.0); CHLORIDE 104 mEq/L (98-107); CREATININE - SERUM 0.7 mg/dL (0.7-1.3); GLUCOSE 95 mg/dL (70-105); POTASSIUM SERUM 4.6 mEq/L (3.5-5.1); SGOT 29 U/L (13-39); SGPT/ALT 15 U/L (7-52); SODIUM SERUM 138 mEq/L (136-145); TOTAL PROTEIN,SERUM 6.7 gm/dL (6.0-8.3)
[2017-05-04] MEDS ORDERED: Sodium Chloride 0.9% 1,000 ML IV ONE (01:00)
[2017-05-04 01:29] VITALS: BP 101/71
[2017-05-04] MEDS: Sodium Chloride 0.9% 1,000 ML IV SCH ×2 (03:00→16:57)
[2017-05-04] MEDS ORDERED: Piperacillin Sodium/Tazobact 3.375 gm Vial IV ONE (04:29)
[2017-05-04 04:56] LABS: EOSINOPHILE ABSOLUTE 0.1 Th/cmm (0.1-0.4); HEMOGLOBIN 13.1 gm/dL (12-16); LYMPHOCYTE ABSOLUTE 1.1 Th/cmm (1.5-3.0); MEAN CELL VOLUME 96.9 fl (80-99); MEAN CORPUSCULAR HEMOGLOBIN 32.8 pg (27.0-31.0); MEAN CORPUSCULAR HGB CONC 33.8 pg (28.0-36.0); MEAN PLATELET VOLUME 10.3 fl; MONOCYTE ABSOLUTE 0.9 Th/cmm (0.3-1.0); NEUTROPHILE ABSOLUTE 2.4 Th/cmm (1.8-8.0); PLATELET COUNT 101 Th/cmm (150-400); RED BLOOD COUNT 4.01 Mil/cmm (3.80-5.80); RED CELL DISTRIBUTION WIDTH 15.1 % (11.5-20.0); WHITE BLOOD COUNT 4.5 Th/cmm (4.8-10.8)
[2017-05-04 05:15] LABS: ALBUMIN 2.6 gm/dL (4.2-5.5); ALKALINE PHOSPHATASE 47 U/L (34-104); ANION GAP 8.5 (7.0-16.0); BILIRUBIN,TOTAL 1.5 mg/dL (0.3-1.0); BUN - UREA NITROGEN 15 mg/dL (7-25); CALCIUM SERUM 7.9 mg/dL (8.6-10.3); CARBON DIOXIDE 25.9 mEq/L (21.0-31.0); CHLORIDE 109 mEq/L (98-107); CREATININE - SERUM 0.6 mg/dL (0.7-1.3); GLUCOSE 80 mg/dL (70-105); POTASSIUM SERUM 4.4 mEq/L (3.5-5.1); SGOT 23 U/L (13-39); SGPT/ALT 11 U/L (7-52); SODIUM SERUM 139 mEq/L (136-145); TOTAL PROTEIN,SERUM 5.2 gm/dL (6.0-8.3)
[2017-05-04 05:20] LABS: HEMATOCRIT 38.8 % (41.0-60)
[2017-05-04 06:20] LABS: BAND NEUTROPHILE 1 % (0-10); EOSINOPHIL 3 % (0-5); LYMPHOCYTE 33 % (20-50); MONOCYTE 16 % (2-10); NEUTROPHILS 45 % (40-80); TOTAL CELLS COUNTED 100
[2017-05-04 06:21] LABS: ATYPICAL LYMPH 2 %; HYPOCHROMIA 1+; PLATELET ESTIMATE DECREASED PLATELETS (NORMAL); PLATELET MORPHOLOGY GIANT PLATELETS SEEN (NORMAL)
[2017-05-04 06:34] LABS: BAND NEUTROPHILE 3 % (0-10); LYMPHOCYTE 18 % (20-50); MONOCYTE 26 % (2-10); NEUTROPHILS 48 % (40-80); TOTAL CELLS COUNTED 100
[2017-05-04 06:35] LABS: ANISOCYTOSIS 1+; ATYPICAL LYMPH 3 %; EOSINOPHIL 2 % (0-5); HYPOCHROMIA 1+; PLATELET ESTIMATE DECREASED PLATELETS (NORMAL)
[2017-05-04 07:20] LABS: URINE MICROSCOPIC INDICATED? YES; URINE SOURCE FOLEY PORT
[2017-05-04 07:22] LABS: URINE BILIRUBIN SMALL (NEGATIVE); URINE BLOOD MODERATE (NEGATIVE); URINE GLUCOSE (UA) NEGATIVE (NEGATIVE); URINE KETONE NEGATIVE (NEGATIVE); URINE LEUKOCYTE ESTERASE NEGATIVE (NEGATIVE); URINE NITRATE NEGATIVE (NEGATIVE); URINE PROTEIN TRACE mg/dL (NEGATIVE)
[2017-05-04 07:24] LABS: URINE CLARITY HAZY (CLEAR); URINE COLOR YELLOW
[2017-05-04 07:33] LABS: URINE BACTERIA MODERATE /hpf (NONE SEEN); URINE EPITHELIAL CELLS MODERATE /lpf (FEW)
[2017-05-04 07:34] LABS: URINE AMORPHOUS SEDIMENT FEW URATES (NONE SEEN)
[2017-05-04] MEDS: Albuterol/Ipratropium Neb 3 ML AERS HHN PRN ×2 (07:34→19:06)
--- NOTE | 2017-05-04 08:46 | Diagnostic Imaging Report ---
Exam: Chest x-ray. HISTORY: Pneumonia. Findings: Frontal examination of chest at 0758 hours reviewed compatible prior study the early demonstrates increased the right-sided pneumonia and effusion There is evidence for cardiomegaly superimposed congestion. Mild peribronchial infiltrate left base appreciated. Bony thorax is intact. The aortic arch calcified. IMPRESSION: 1. Cardiomegaly superimposed congestion. 2. Decreased the right-sided pneumonia and effusion 3. Left basilar atelectasis with mild peribronchial infiltrate. Follow-up examination is recommended.
--- NOTE | 2017-05-04 10:30 | General Progress Note ---
Subjective - Review of Systems Events since last encounter: patient still psychotic Objective - Results Result Diagrams: 05/04/17 04:45 05/04/17 04:45 Recent Labs: Laboratory Last Values WBC 4.5 Th/cmm (4.8-10.8) L 05/04/17 04:45 RBC 4.01 Mil/cmm (3.80-5.80) 05/04/17 04:45 Hgb 13.1 gm/dL (12-16) 05/04/17 04:45 Hct 38.8 % (41.0-60) L D 05/04/17 04:45 MCV 96.9 fl (80-99) 05/04/17 04:45 MCH 32.8 pg (27.0-31.0) H 05/04/17 04:45 MCHC Differential 33.8 pg (28.0-36.0) 05/04/17 04:45 RDW 15.1 % (11.5-20.0) 05/04/17 04:45 Plt Count 101 Th/cmm (150-400) L 05/04/17 04:45 MPV 10.3 fl 05/04/17 04:45 Band Neutrophils % 3 % (0-10) 05/04/17 04:45 Neutrophils (Manual) 48 % (40-80) 05/04/17 04:45 Lymphocytes 18 % (20-50) L 05/04/17 04:45 Monocytes 26 % (2-10) H 05/04/17 04:45 Eosinophils 2 % (0-5) 05/04/17 04:45 Atypical Lymphocytes 3 % 05/04/17 04:45 Hypochromia 1+ 05/04/17 04:45 Platelet Estimate DECREASED PLATELETS (NORMAL) 05/04/17 04:45 Platelet Morphology GIANT PLATELETS SEEN (NORMAL) 05/03/17 23:55 Anisocytosis 1+ 05/04/17 04:45 Microcytosis 1+ 05/04/17 04:45 Macrocytosis 1+ 05/04/17 04:45 RBC Morph Micro Appear NORMAL (NORMAL) 05/03/17 23:55 Sodium 139 mEq/L (136-145) 05/04/17 04:45 Potassium 4.4 mEq/L (3.5-5.1) 05/04/17 04:45 Chloride 109 mEq/L (98-107) H 05/04/17 04:45 Carbon Dioxide 25.9 mEq/L (21.0-31.0) 05/04/17 04:45 Anion Gap 8.5 (7.0-16.0) 05/04/17 04:45 BUN 15 mg/dL (7-25) 05/04/17 04:45 Creatinine 0.6 mg/dL (0.7-1.3) L 05/04/17 04:45 Est GFR ( Amer) TNP 05/04/17 04:45 Est GFR (Non-Af Amer) TNP 05/04/17 04:45 BUN/Creatinine Ratio 25.0 05/04/17 04:45 Glucose 80 mg/dL (70-105) 05/04/17 04:45 Whole Bld Lactic Acid 1.82 mmol/L (0.60-1.99) 05/03/17 23:55 Calcium 7.9 mg/dL (8.6-10.3) L 05/04/17 04:45 Total Bilirubin 1.5 mg/dL (0.3-1.0) H 05/04/17 04:45 AST 23 U/L (13-39) 05/04/17 04:45 ALT 11 U/L (7-52) 05/04/17 04:45 Alkaline Phosphatase 47 U/L (34-104) 05/04/17 04:45 Total Protein 5.2 gm/dL (6.0-8.3) L 05/04/17 04:45 Albumin 2.6 gm/dL (4.2-5.5) L 05/04/17 04:45 Globulin 2.6 gm/dL 05/04/17 04:45 Albumin/Globulin Ratio 1.0 (1.0-1.8) 05/04/17 04:45 Urine Source [place] 05/04/17 06:45 Urine Color YELLOW 05/04/17 06:45 Urine Clarity HAZY (CLEAR) 05/04/17 06:45 Urine pH 8.0 (4.6 - 8.0) 05/04/17 06:45 Ur Specific [place] 1.015 (1.005-1.030) 05/04/17 06:45 Urine Protein TRACE mg/dL (NEGATIVE) 05/04/17 06:45 Urine Glucose (UA) NEGATIVE mg/dL (NEGATIVE) 05/04/17 06:45 Urine Ketones NEGATIVE mg/dL (NEGATIVE) 05/04/17 06:45 Urine Blood MODERATE (NEGATIVE) H 05/04/17 06:45 Urine Nitrate NEGATIVE (NEGATIVE) 05/04/17 06:45 Urine Bilirubin SMALL (NEGATIVE) H 05/04/17 06:45 Urine Urobilinogen 2.0 E.U./dL (0.2 - 1.0) 05/04/17 06:45 Ur Leukocyte Esterase NEGATIVE (NEGATIVE) 05/04/17 06:45 Urine RBC 5-10 /hpf (0-5) H 05/04/17 06:45 Urine WBC 2-5 /hpf (0-5) H 05/04/17 06:45 Ur Epithelial Cells MODERATE /lpf (FEW) 05/04/17 06:45 Amorphous Sediment FEW URATES (NONE SEEN) 05/04/17 06:45 Urine Bacteria MODERATE /hpf (NONE SEEN) H 05/04/17 06:45 - Physical Exam Vitals and I&O: Vital Signs Temp 98.2 F 05/04/17 08:00 Pulse 102 05/04/17 08:00 Resp 15 05/04/17 08:00 BP 98/57 05/04/17 08:00 Pulse Ox 100 05/04/17 08:00 Intake & Output 05/03/17 05/04/17 05/04/17 18:59 06:59 18:59 Intake Total 1942.5 Balance 1942.5 Weight (lbs) 56.245 kg Intake: Intake, IV Amount 1942.5 Piperacillin Sodium/ 50 Tazobact 3.375 gm In Sodium Chloride 0.9% 50 ml @ 100 mls/hr IV Q8HR [facility] Rx#:[id number] Sodium Chloride 0.9% 1, 292.5 000 ml @ 70 mls/hr IV . [id number] [facility] Rx#:[id number] Oral 0 Other: # Voids 2 # Bowel Movements 0 Active Medications: Current Medications Albuterol/Ipratropium (Duoneb Neb) 3 ml HHN [id number] PRN PRN Reason: Wheezing Stop: 07/03/17 06:59 Last Admin: 05/04/17 07:34 Dose: 3 ml Divalproex Sodium (Depakote Dr) 250 mg PO BID CATHLEEN PRN Reason: Protocol Stop: 07/03/17 08:59 Last Admin: 05/04/17 08:22 Dose: 250 mg Levofloxacin (Levaquin Pb) 250 mg in 50 mls @ 50 mls/hr IV Q24HR [facility] Stop: 07/03/17 20:59 Piperacillin Sod/Tazobactam (Sod 3.375 gm/ Sodium Chloride) 50 mls @ 100 mls/ hr IV Q8HR [facility] Stop: 07/03/17 04:59 Last Infusion: 05/04/17 05:05 Dose: Infused Sodium Chloride (Nacl 0.9%) 1,000 mls @ 70 mls/hr IV .[id number] [facility] Stop: 07/03/17 01:59 Last Infusion: 05/04/17 06:00 Dose: 70 mls/hr Norepinephrine Bitartrate 4 mg (/ Dextrose) 254 mls @ 30.48 mls/hr IV TITR PRN ; Protocol; 8 MCG/MIN PRN Reason: BP MAINTENANCE (PER PROTOCOL) Stop: 07/03/17 09:26 Last Admin: 05/04/17 10:11 Dose: 8 mcg/min, 30.48 mls/hr Lorazepam (Ativan) 1 mg IVP Q6HR PRN; Protocol PRN Reason: restlessness and agitation Stop: 07/03/17 00:26 Lorazepam (Ativan) 0.5 mg PO Q4HR PRN; Protocol PRN Reason: Anxiety Stop: 07/03/17 05:50 General: No acute distress HEENT: Atraumatic Neck: Supple Cardiovascular: Regular rate, Normal S1, Normal S2 Abdomen: Bowel sounds Assessment/Plan - Problem List Patient Problems: All Active Problems INCREASED AGITATION AND POOR ORAL INTAKE (Acute) - Plan Plan: cpm
[2017-05-04] MEDS ORDERED: Diltiazem 5 mg/mL 5mL Vial IVP STA (12:23)
[2017-05-04] MEDS ORDERED: Diltiazem 5 mg/mL 5mL Vial IVP ONE (12:25)
--- NOTE | 2017-05-04 18:37 | Consultation ---
Consult Note - Consult Note Service Date: 05/04/17 Referring Physician: Makenzie Madrid Consult Note: PHYSICIAN Consultation Note: Date of Admission: 05/03/17 Purpose of Consultation: sepsis. Chief Complaint: Patient FARIDEH CORNELL was admitted to location Intensive Care Unit with LOW O2 SATURATION. History of Present Illness: 87 Year, male was brought from [facility] unit for hypoxemia and hypotension. His mentation was also altered and usual. He was brought to the ICU and levophed was started. So far there is no fever. CXR showed effusions and pneumonia. ID consult was called and zosyn was started. He is unable to give any meaningful history. Past Medical History: Allergies Allergy/AdvReac Type Severity Reaction Status Date / Time clonazepam Allergy Verified 04/29/17 11:09 Vital Signs Temp 96.8 F 05/04/17 16:00 Pulse 129 05/04/17 18:00 Resp 14 05/04/17 18:00 BP 123/87 05/04/17 18:00 Pulse Ox 100 05/04/17 18:00 Intake & Output 05/03/17 05/04/17 05/04/17 18:59 06:59 18:59 Intake Total 1942.5 790.304 Balance 1942.5 790.304 Weight (lbs) 56.245 kg Intake: Intake, IV Amount 1942.5 790.304 Norepinephrine 4 mg In 82.804 Dextrose 5% 250 ml @ 8 MCG/MIN 30.48 mls/hr IV TITR PRN Rx#:[id number] Piperacillin Sodium/ 50 Tazobact 3.375 gm In Sodium Chloride 0.9% 50 ml @ 100 mls/hr IV Q8HR [facility] Rx#:[id number] Sodium Chloride 0.9% 1, 292.5 707.5 000 ml @ 70 mls/hr IV . [id number] [facility]LE[facility] Rx#:[id number] Oral 0 Other: # Voids 2 # Bowel Movements 0 Laboratory Results - last 24 hr 05/03/17 05/03/17 05/03/17 23:55 23:55 23:55 WBC 4.8 RBC 4.59 Hgb 15.1 Hct 44.9 MCV 97.9 MCH 32.8 H MCHC Differential 33.5 RDW 15.7 Plt Count 121 L MPV 9.9 Band Neutrophils % 1 Neutrophils (Manual) 45 Lymphocytes 33 Monocytes 16 H Eosinophils 3 Atypical Lymphocytes 2 Hypochromia 1+ Platelet Estimate DECREASED PLATELETS Platelet Morphology GIANT PLATELETS SEEN Anisocytosis Microcytosis Macrocytosis 1+ RBC Morph Micro Appear NORMAL Sodium 138 Potassium 4.6 Chloride 104 Carbon Dioxide 27.9 Anion Gap 10.7 BUN 15 Creatinine 0.7 Est GFR ( Amer) TNP Est GFR (Non-Af Amer) TNP BUN/Creatinine Ratio 21.4 Glucose 95 Whole Bld Lactic Acid 1.82 Calcium 9.2 Total Bilirubin 1.8 H AST 29 ALT 15 Alkaline Phosphatase 62 Total Protein 6.7 Albumin 3.5 L Globulin 3.2 Albumin/Globulin Ratio 1.1 Urine Source Urine Color Urine Clarity Urine pH Ur Specific [place] Urine Protein Urine Glucose (UA) Urine Ketones Urine Blood Urine Nitrate Urine Bilirubin Urine Urobilinogen Ur Leukocyte Esterase Urine RBC Urine WBC Ur Epithelial Cells Amorphous Sediment Urine Bacteria 05/04/17 05/04/17 05/04/17 04:45 04:45 06:45 WBC 4.5 L RBC 4.01 Hgb 13.1 Hct 38.8 L D MCV 96.9 MCH 32.8 H MCHC Differential 33.8 RDW 15.1 Plt Count 101 L MPV 10.3 Band Neutrophils % 3 Neutrophils (Manual) 48 Lymphocytes 18 L Monocytes 26 H Eosinophils 2 Atypical Lymphocytes 3 Hypochromia 1+ Platelet Estimate DECREASED PLATELETS Platelet Morphology Anisocytosis 1+ Microcytosis 1+ Macrocytosis 1+ RBC Morph Micro Appear Sodium 139 Potassium 4.4 Chloride 109 H Carbon Dioxide 25.9 Anion Gap 8.5 BUN 15 Creatinine 0.6 L Est GFR ( Amer) TNP Est GFR (Non-Af Amer) TNP BUN/Creatinine Ratio 25.0 Glucose 80 Whole Bld Lactic Acid Calcium 7.9 L Total Bilirubin 1.5 H AST 23 ALT 11 Alkaline Phosphatase 47 Total Protein 5.2 L Albumin 2.6 L Globulin 2.6 Albumin/Globulin Ratio 1.0 Urine Source [place] Urine Color YELLOW Urine Clarity HAZY Urine pH 8.0 Ur Specific [place] 1.015 Urine Protein TRACE Urine Glucose (UA) NEGATIVE Urine Ketones NEGATIVE Urine Blood MODERATE H Urine Nitrate NEGATIVE Urine Bilirubin SMALL H Urine Urobilinogen 2.0 Ur Leukocyte Esterase NEGATIVE Urine RBC 5-10 H Urine WBC 2-5 H Ur Epithelial Cells MODERATE Amorphous Sediment FEW URATES Urine Bacteria MODERATE H Home Medication Medication Instructions Recorded Type Aspirin EC [Ecotrin] 81 mg PO DAILY 04/29/17 History Beclomethasone Dipropionate [Qvar] 8.7 gm IH DAILY 04/29/17 History Cholecalciferol (Vitamin D3) 5,000 unit PO DAILY 04/29/17 History [Vitamin D3] Divalproex Sodium [Depakote] 125 mg PO BID 04/29/17 History Donepezil Hcl [Aricept] 5 mg PO DAILY 04/29/17 History Levothyroxine [Synthroid] 0.05 mg PO QDAC 04/29/17 History Loratadine [Claritin] 10 mg PO DAILY 04/29/17 History Metoprolol Tartrate [Lopressor] 50 mg PO BID 04/29/17 History Tamsulosin [Flomax] 0.4 mg PO DAILY 04/29/17 History Current Medications Generic Name Dose Route Start Last Admin Trade Name Freq PRN Reason Stop Dose Admin Acetaminophen 650 mg 05/04/17 16:22 05/04/17 16:46 Tylenol PO 07/03/17 16:21 650 mg Q4H PRN Administration Pain (Mild) Albuterol/Ipratropium 3 ml 05/04/17 00:50 05/04/17 07:34 Duoneb Neb HHN 07/03/17 06:59 3 ml [id number] PRN Administration Wheezing Diltiazem HCl 5 mg 05/04/17 14:46 Cardizem IVP 07/03/17 14:59 Q6H PRN HR > 120 Divalproex Sodium 250 mg 05/04/17 09:00 05/04/17 16:[address] PO 07/03/17 08:59 250 mg BID CATHLEEN Administration Protocol Levofloxacin 250 mg in 50 mls @ 50 mls/hr 05/04/17 21:00 Levaquin Pb IV 07/03/17 20:59 Q24HR CATHLEEN Piperacillin Sod/Tazobactam 50 mls @ 100 mls/hr 05/04/17 05:00 05/04/17 12:37 Sod 3.375 gm/ Sodium Chloride IV 07/03/17 04:59 100 mls/hr Q8HR CATHLEEN Administration Sodium Chloride 1,000 mls @ 70 mls/hr 05/04/17 02:00 05/04/17 16:57 Nacl 0.9% IV 07/03/17 01:59 70 mls/hr .[id number] CATHLEEN Administration Norepinephrine Bitartrate 4 mg 254 mls @ 30.48 mls/hr 05/04/17 09:33 15:56 / Dextrose IV 07/03/17 09:26 4 mcg/min TITR PRN 15.24 mls/hr BP MAINTENANCE (PER PROTOCOL) Titration Protocol 8 MCG/MIN Lorazepam 1 mg 05/04/17 00:27 Ativan IVP 07/03/17 00:26 Q6HR PRN restlessness and agitation Protocol Lorazepam 0.5 mg 05/04/17 05:51 Ativan PO 07/03/17 05:50 Q4HR PRN Anxiety Protocol Methylprednisolone Sodium Succinate 40 mg 05/04/17 21:00 Solu-Medrol IVP 07/03/17 20:59 Q8HR CATHLEEN Review of Systems: A 12 point ROS was reviewed with the pertinent positive and negatives noted in the HPI. Social History Smoking Status Unknown if ever smoked Drug Use No: UNKNOWN Alcohol Use No: UNKNOWN Family Medical History Family Medical History Start: 05/03/17 23: 04 Freq: ONCE Status: Active Document 05/03/17 22:40 MSILVA (Rec: 05/04/17 02:40 MSILVA [id number]) Family Medical History Mother History Unknown Yes Physical Exam: General: Comfortable. lyig in the bed, no distress, Oral cavity mist pink tongue , HEENT: Head is normocephalic atraumatic. Oral cavity moist, pink tongue. Eyes: pallor. no icterus. Neck: supple, no JVD, carotid bruit, no use accassl\lry muscles. Cardio: S1 and S2 WNL Respiratory: vesicuar breath sounds. Abdominal: soft NT ND BS present, Genital/Urinary: Extremities: NCCE Neurological: Alert , awke oriented x 3, Assessment: 1. Pneumonia. 2. respiratory insufficiency. Plan: Continue Zosyn, Thank you, Dr Madrid for involving me in taking care of this case. Signed, Ezra Lyle M.D. [id number]
[2017-05-04] MEDS: Diltiazem 5 mg/mL 5mL Vial IVP PRN (19:52)
[2017-05-04] MEDS: Levofloxacin 250 mg/50 mL Premix Bag IV SCH (20:38)
[2017-05-04] MEDS: methylPREDNISolone SS 40 mg Vial IVP SCH (20:38)
--- NOTE | 2017-05-04 23:13 | Progress Notes ---
DATE: SUBJECTIVE: Chart reviewed and the patient interviewed. The patient had to be transferred from the Geropsych Unit to the Intensive Care Unit because of the drop in oxygen concentration. The patient is restless and he is anxious and staff was not able to give him at the time because of also decrease in his blood pressure. He also have episodes of irritability and anxiety, but that is more difficult and will continue psychotropic medications and will continue to follow up. [facility]# [id number]
--- NOTE | 2017-05-05 00:01 | Consultation ---
DATE OF CONSULTATION: 05/04/[address] Madrid. HISTORY OF PRESENT ILLNESS: This is an 87-year-old male who was admitted to Geropsych Unit for agitation, aggression, and patient apparently has developed some hypoxemia and was transferred here for further evaluation. The patient was given 3 breathing treatments and oxygen supplementations and improved. He is awake and alert now. Apparently, had a chest x-ray showed pneumonia and effusion and according to family, the patient has history of COPD, has history of smoking in the past, quit over 10 years ago. The patient has some minimal cough, but no distress at this point and unable to give any further history. PAST MEDICAL HISTORY: As above. SOCIAL HISTORY: The patient smoked heavily for many years, quit 10 years ago. REVIEW OF SYSTEMS: Unable to obtain because of the patient's condition. PHYSICAL EXAMINATION: GENERAL: The patient is awake, weak, in no distress. VITAL SIGNS: Temperature 98.2, pulse is 85, respirations 20, blood pressure 104/60 and saturation is 100%. HEENT: Atraumatic and normocephalic. Pupils reactive to light and accommodation. Ears, nose and throat normal. NECK: Supple. No JVD. CHEST: There are few rhonchi bilaterally, fair air entry. HEART: Regular rate and rhythm. ABDOMEN: Soft and nontender. EXTREMITIES: No edema. LABORATORY DATA: WBC is 4.5, hemoglobin 13.1 with hematocrit 38.8, platelets is 101. Sodium 139, potassium 4.4, BUN is 15 and creatinine 0.6. DIAGNOSTIC DATA: Chest x-ray today showed right lower lobe infiltrate, small effusion and cardiomegaly. IMPRESSION: This is an 87-year-old male with: 1. Pneumonia. 2. Respiratory failure, hypoxemia. 3. Chronic obstructive pulmonary disease with exacerbation. PLAN: 1. IV antibiotics. 2. Nebulizer. 3. IV Solu-Medrol. 4. Follow up chest x-ray and observe closely. Discussed with family in detail. Thank you very much for this consultation. JOB# [id number]
--- NOTE | 2017-05-05 04:56 | Consultation ---
DATE OF CONSULTATION: The patient is in ICU. HISTORY OF PRESENT ILLNESS: This 87-year-old male was seen and examined at the courtesy of Dr. Madrid. The patient was admitted here. He was transferred here from [facility]. He was transferred here with hypoxemia and palpitations. He was admitted to ICU. He was found to be in atrial fibrillation with rapid ventricular response, blood pressure was low, so he was started on Levophed. He was given Cardizem 5 mg IV. The patient does have a history of atherosclerotic heart disease. He was also found to have pneumonia and pleural effusion. No other proper history available from the patient, no information available from the patient. The patient does apparently have psych problems. LABORATORY DATA AND DIAGNOSTIC STUDIES: On reviewing the lab, the sodium was 139, potassium 4.4, chloride 109, CO2 25.9, glucose 80, BUN 15, creatinine 0.6. Total protein was 5.9, albumin 2.6, globulin 2.6. Bilirubin total of 1.5, AST 23, ALT 11, and alkaline phosphatase 47. WBC count was 4.5, hemoglobin 13.1, hematocrit 38.8, and platelet count was 101. Blood gases revealed pH of 7.450, pCO2 37, pO2 68. Magnesium was 1.9. Hemoglobin A1c 6. Amylase was 19, lipase was 5. Cholesterol 129, triglycerides 64, HDL 35, and LDL 90. Lactic acid 1.82 that is normal. Chest x-ray revealed right lower lobe pneumonia with small effusion. EKG revealed atrial fibrillation with rapid ventricular response, poor R wave progression in the precordial leads. IMPRESSION: Atrial fibrillation with rapid ventricular response, atherosclerotic heart disease, hypoxemia, pneumonia, pleural effusion, hypotension, could there be a septic shock, thrombocytopenia. DISCUSSION: This elderly gentleman who is already on Levophed to maintain the blood pressure is only on Levophed 4 mcg. Cardizem has been ordered for p.r.n. If heart rate remains above 120, we will start Cardizem drip. When blood pressure becomes stable, p.o. medication with Cardizem and/or beta taco be added. We will also get echocardiogram in a.m., thyroid profile in a.m. The patient also should be on anticoagulation. Thank you, Dr. Sirisha Lyle will be following him from the morning. JOB# [id number]
[2017-05-05] MEDS: methylPREDNISolone SS 40 mg Vial IVP SCH ×3 (04:58→20:52)
[2017-05-05] MEDS: Diltiazem 5 mg/mL 5mL Vial IVP PRN ×2 (06:13→13:20)
[2017-05-05] MEDS: Albuterol/Ipratropium Neb 3 ML AERS HHN PRN ×4 (07:46→19:02)
--- NOTE | 2017-05-05 07:49 | Diagnostic Imaging Report ---
CHEST X-RAY: AP view INDICATION: Shortness of breath COMPARISON: 05/04/2017 FINDINGS: Bilateral pleural effusions are seen with right larger the left with fluid in the right fissure. Diffuse right lung infiltrates are noted. Cardiomegaly is noted. There is probably superimposed congestion. IMPRESSION: Bilateral pleural effusions right larger than left with diffuse right lung infiltrates. There is probable mild congestion Cardiomegaly.
[2017-05-05] MEDS: Sodium Chloride 0.9% 1,000 ML IV SCH ×2 (09:59→20:59)
--- NOTE | 2017-05-05 12:40 | General Progress Note ---
Subjective - Review of Systems Events since last encounter: admitted for atrial fib in no acute distress Objective - Results Result Diagrams: 05/04/17 04:45 05/04/17 04:45 Recent Labs: Laboratory Last Values WBC 4.5 Th/cmm (4.8-10.8) L 05/04/17 04:45 RBC 4.01 Mil/cmm (3.80-5.80) 05/04/17 04:45 Hgb 13.1 gm/dL (12-16) 05/04/17 04:45 Hct 38.8 % (41.0-60) L D 05/04/17 04:45 MCV 96.9 fl (80-99) 05/04/17 04:45 MCH 32.8 pg (27.0-31.0) H 05/04/17 04:45 MCHC Differential 33.8 pg (28.0-36.0) 05/04/17 04:45 RDW 15.1 % (11.5-20.0) 05/04/17 04:45 Plt Count 101 Th/cmm (150-400) L 05/04/17 04:45 MPV 10.3 fl 05/04/17 04:45 Band Neutrophils % 3 % (0-10) 05/04/17 04:45 Neutrophils (Manual) 48 % (40-80) 05/04/17 04:45 Lymphocytes 18 % (20-50) L 05/04/17 04:45 Monocytes 26 % (2-10) H 05/04/17 04:45 Eosinophils 2 % (0-5) 05/04/17 04:45 Atypical Lymphocytes 3 % 05/04/17 04:45 Hypochromia 1+ 05/04/17 04:45 Platelet Estimate DECREASED PLATELETS (NORMAL) 05/04/17 04:45 Platelet Morphology GIANT PLATELETS SEEN (NORMAL) 05/03/17 23:55 Anisocytosis 1+ 05/04/17 04:45 Microcytosis 1+ 05/04/17 04:45 Macrocytosis 1+ 05/04/17 04:45 RBC Morph Micro Appear NORMAL (NORMAL) 05/03/17 23:55 Sodium 139 mEq/L (136-145) 05/04/17 04:45 Potassium 4.4 mEq/L (3.5-5.1) 05/04/17 04:45 Chloride 109 mEq/L (98-107) H 05/04/17 04:45 Carbon Dioxide 25.9 mEq/L (21.0-31.0) 05/04/17 04:45 Anion Gap 8.5 (7.0-16.0) 05/04/17 04:45 BUN 15 mg/dL (7-25) 05/04/17 04:45 Creatinine 0.6 mg/dL (0.7-1.3) L 05/04/17 04:45 Est GFR ( Amer) TNP 05/04/17 04:45 Est GFR (Non-Af Amer) TNP 05/04/17 04:45 BUN/Creatinine Ratio 25.0 05/04/17 04:45 Glucose 80 mg/dL (70-105) 05/04/17 04:45 Whole Bld Lactic Acid 1.82 mmol/L (0.60-1.99) 05/03/17 23:55 Calcium 7.9 mg/dL (8.6-10.3) L 05/04/17 04:45 Total Bilirubin 1.5 mg/dL (0.3-1.0) H 05/04/17 04:45 AST 23 U/L (13-39) 05/04/17 04:45 ALT 11 U/L (7-52) 05/04/17 04:45 Alkaline Phosphatase 47 U/L (34-104) 05/04/17 04:45 Total Protein 5.2 gm/dL (6.0-8.3) L 05/04/17 04:45 Albumin 2.6 gm/dL (4.2-5.5) L 05/04/17 04:45 Globulin 2.6 gm/dL 05/04/17 04:45 Albumin/Globulin Ratio 1.0 (1.0-1.8) 05/04/17 04:45 Urine Source [place] 05/04/17 06:45 Urine Color YELLOW 05/04/17 06:45 Urine Clarity HAZY (CLEAR) 05/04/17 06:45 Urine pH 8.0 (4.6 - 8.0) 05/04/17 06:45 Ur Specific [place] 1.015 (1.005-1.030) 05/04/17 06:45 Urine Protein TRACE mg/dL (NEGATIVE) 05/04/17 06:45 Urine Glucose (UA) NEGATIVE mg/dL (NEGATIVE) 05/04/17 06:45 Urine Ketones NEGATIVE mg/dL (NEGATIVE) 05/04/17 06:45 Urine Blood MODERATE (NEGATIVE) H 05/04/17 06:45 Urine Nitrate NEGATIVE (NEGATIVE) 05/04/17 06:45 Urine Bilirubin SMALL (NEGATIVE) H 05/04/17 06:45 Urine Urobilinogen 2.0 E.U./dL (0.2 - 1.0) 05/04/17 06:45 Ur Leukocyte Esterase NEGATIVE (NEGATIVE) 05/04/17 06:45 Urine RBC 5-10 /hpf (0-5) H 05/04/17 06:45 Urine WBC 2-5 /hpf (0-5) H 05/04/17 06:45 Ur Epithelial Cells MODERATE /lpf (FEW) 05/04/17 06:45 Amorphous Sediment FEW URATES (NONE SEEN) 05/04/17 06:45 Urine Bacteria MODERATE /hpf (NONE SEEN) H 05/04/17 06:45 - Physical Exam Vitals and I&O: Vital Signs Temp 97.3 F 05/05/17 08:00 Pulse 123 05/05/17 11:52 Resp 16 05/05/17 11:52 BP 109/75 05/05/17 11:30 Pulse Ox 100 05/05/17 11:52 Intake & Output 05/04/17 05/05/17 05/05/17 18:59 06:59 18:59 Intake Total 878.150 399.011 3725.189 Output Total 1000 Balance 878.150 -475.538 4498.189 Weight (lbs) 54.431 kg Intake: Intake, IV Amount 878.150 657.774 0963.189 Levofloxacin 250mg/50mL 50 250 mg In 50 ml @ 50 mls/ hr IV Q24HR [facility] Rx#: [id number] Norepinephrine 4 mg In 120.650 114.871 111.189 Dextrose 5% 250 ml @ 8 MCG/MIN 30.48 mls/hr IV TITR PRN Rx#:[id number] Piperacillin Sodium/ 50 100 Tazobact 3.375 gm In Sodium Chloride 0.9% 50 ml @ 100 mls/hr IV Q8HR [facility] Rx#:[id number] Sodium Chloride 0.9% 1, 707.5 1000 000 ml @ 70 mls/hr IV . [id number] [facility] Rx#:[id number] Oral 150 Output: Urine 1000 Other: # Bowel Movements 0 Active Medications: Current Medications Acetaminophen (Tylenol) 650 mg PO Q4H PRN PRN Reason: Pain (Mild) Stop: 07/03/17 16:21 Last Admin: 05/04/17 16:46 Dose: 650 mg Albuterol/Ipratropium (Duoneb Neb) 3 ml HHN [id number] PRN PRN Reason: Wheezing Stop: 07/03/17 06:59 Last Admin: 05/05/17 11:50 Dose: 3 ml Diltiazem HCl (Cardizem) 5 mg IVP Q6H PRN PRN Reason: HR > 120 Stop: 07/03/17 14:59 Last Admin: 05/05/17 06:13 Dose: 5 mg Divalproex Sodium (Depakote Dr) 250 mg PO BID [facility] PRN Reason: Protocol Stop: 07/03/17 08:59 Last Admin: 05/05/17 08:08 Dose: 250 mg Levofloxacin (Levaquin Pb) 250 mg in 50 mls @ 50 mls/hr IV Q24HR [facility] Stop: 07/03/17 20:59 Last Infusion: 05/04/17 21:36 Dose: Infused Piperacillin Sod/Tazobactam (Sod 3.375 gm/ Sodium Chloride) 50 mls @ 100 mls/ hr IV Q8HR [facility] Stop: 07/03/17 04:59 Last Infusion: 05/05/17 05:28 Dose: Infused Sodium Chloride (Nacl 0.9%) 1,000 mls @ 70 mls/hr IV .[id number] [facility] Stop: 07/03/17 01:59 Last Admin: 05/05/17 09:59 Dose: 70 mls/hr Norepinephrine Bitartrate 4 mg (/ Dextrose) 254 mls @ 30.48 mls/hr IV TITR PRN ; Protocol; 8 MCG/MIN PRN Reason: BP MAINTENANCE (PER PROTOCOL) Stop: 07/03/17 09:26 Last Titration: 05/05/17 10:02 Dose: 2 mcg/min, 7.62 mls/hr Lorazepam (Ativan) 1 mg IVP Q6HR PRN; Protocol PRN Reason: restlessness and agitation Stop: 07/03/17 00:26 Lorazepam (Ativan) 0.5 mg PO Q4HR PRN; Protocol PRN Reason: Anxiety Stop: 07/03/17 05:50 Methylprednisolone Sodium Succinate (Solu-Medrol) 40 mg IVP Q8HR [facility] Stop: 07/03/17 20:59 Last Admin: 05/05/17 04:58 Dose: 40 mg General: No acute distress HEENT: Atraumatic Neck: Supple Cardiovascular: Regular rate, Normal S1, Normal S2 Abdomen: Bowel sounds Assessment/Plan - Problem List Patient Problems: All Active Problems INCREASED AGITATION AND POOR ORAL INTAKE (Acute) - Plan Plan: cpm
[2017-05-05] MEDS ORDERED: Probiotic Screen MC PRN (16:19)
--- NOTE | 2017-05-05 19:46 | Infectious Disease Prog Note ---
Infectious Disease Subjective - Review of Systems Service Date: 05/05/17 Subjective: Feeling better, there is no fever. Infectious Disease Objective - Results Result Diagrams: 05/04/17 04:45 05/06/17 04:15 Recent Labs: Laboratory Last Values WBC 4.5 Th/cmm (4.8-10.8) L 05/04/17 04:45 RBC 4.01 Mil/cmm (3.80-5.80) 05/04/17 04:45 Hgb 13.1 gm/dL (12-16) 05/04/17 04:45 Hct 38.8 % (41.0-60) L D 05/04/17 04:45 MCV 96.9 fl (80-99) 05/04/17 04:45 MCH 32.8 pg (27.0-31.0) H 05/04/17 04:45 MCHC Differential 33.8 pg (28.0-36.0) 05/04/17 04:45 RDW 15.1 % (11.5-20.0) 05/04/17 04:45 Plt Count 101 Th/cmm (150-400) L 05/04/17 04:45 MPV 10.3 fl 05/04/17 04:45 Band Neutrophils % 3 % (0-10) 05/04/17 04:45 Neutrophils (Manual) 48 % (40-80) 05/04/17 04:45 Lymphocytes 18 % (20-50) L 05/04/17 04:45 Monocytes 26 % (2-10) H 05/04/17 04:45 Eosinophils 2 % (0-5) 05/04/17 04:45 Atypical Lymphocytes 3 % 05/04/17 04:45 Hypochromia 1+ 05/04/17 04:45 Platelet Estimate DECREASED PLATELETS (NORMAL) 05/04/17 04:45 Platelet Morphology GIANT PLATELETS SEEN (NORMAL) 05/03/17 23:55 Anisocytosis 1+ 05/04/17 04:45 Microcytosis 1+ 05/04/17 04:45 Macrocytosis 1+ 05/04/17 04:45 RBC Morph Micro Appear NORMAL (NORMAL) 05/03/17 23:55 Sodium 139 mEq/L (136-145) 05/04/17 04:45 Potassium 4.4 mEq/L (3.5-5.1) 05/04/17 04:45 Chloride 109 mEq/L (98-107) H 05/04/17 04:45 Carbon Dioxide 25.9 mEq/L (21.0-31.0) 05/04/17 04:45 Anion Gap 8.5 (7.0-16.0) 05/04/17 04:45 BUN 15 mg/dL (7-25) 05/04/17 04:45 Creatinine 0.6 mg/dL (0.7-1.3) L 05/04/17 04:45 Est GFR ( Amer) TNP 05/04/17 04:45 Est GFR (Non-Af Amer) TNP 05/04/17 04:45 BUN/Creatinine Ratio 25.0 05/04/17 04:45 Glucose 80 mg/dL (70-105) 05/04/17 04:45 Whole Bld Lactic Acid 1.82 mmol/L (0.60-1.99) 05/03/17 23:55 Calcium 7.9 mg/dL (8.6-10.3) L 05/04/17 04:45 Total Bilirubin 1.5 mg/dL (0.3-1.0) H 05/04/17 04:45 AST 23 U/L (13-39) 05/04/17 04:45 ALT 11 U/L (7-52) 05/04/17 04:45 Alkaline Phosphatase 47 U/L (34-104) 05/04/17 04:45 Total Protein 5.2 gm/dL (6.0-8.3) L 05/04/17 04:45 Albumin 2.6 gm/dL (4.2-5.5) L 05/04/17 04:45 Globulin 2.6 gm/dL 05/04/17 04:45 Albumin/Globulin Ratio 1.0 (1.0-1.8) 05/04/17 04:45 Urine Source [place] 05/04/17 06:45 Urine Color YELLOW 05/04/17 06:45 Urine Clarity HAZY (CLEAR) 05/04/17 06:45 Urine pH 8.0 (4.6 - 8.0) 05/04/17 06:45 Ur Specific [place] 1.015 (1.005-1.030) 05/04/17 06:45 Urine Protein TRACE mg/dL (NEGATIVE) 05/04/17 06:45 Urine Glucose (UA) NEGATIVE mg/dL (NEGATIVE) 05/04/17 06:45 Urine Ketones NEGATIVE mg/dL (NEGATIVE) 05/04/17 06:45 Urine Blood MODERATE (NEGATIVE) H 05/04/17 06:45 Urine Nitrate NEGATIVE (NEGATIVE) 05/04/17 06:45 Urine Bilirubin SMALL (NEGATIVE) H 05/04/17 06:45 Urine Urobilinogen 2.0 E.U./dL (0.2 - 1.0) 05/04/17 06:45 Ur Leukocyte Esterase NEGATIVE (NEGATIVE) 05/04/17 06:45 Urine RBC 5-10 /hpf (0-5) H 05/04/17 06:45 Urine WBC 2-5 /hpf (0-5) H 05/04/17 06:45 Ur Epithelial Cells MODERATE /lpf (FEW) 05/04/17 06:45 Amorphous Sediment FEW URATES (NONE SEEN) 05/04/17 06:45 Urine Bacteria MODERATE /hpf (NONE SEEN) H 05/04/17 06:45 - Physical Exam Vitals and I&O: Vital Signs Temp 97.5 F 05/05/17 18:00 Pulse 125 05/05/17 19:02 Resp 18 05/05/17 19:02 BP 126/75 05/05/17 18:45 Pulse Ox 10 05/05/17 19:02 Intake & Output 05/05/17 05/05/17 05/06/17 06:59 18:59 06:59 Intake Total 931.697 8625.189 Output Total 1000 350 Balance -302.630 6257.189 Weight (lbs) 54.431 kg 54.431 kg Intake: Intake, IV Amount 443.003 8442.189 Amiodarone 150 mg In 103 Dextrose 5% 100 ml @ 618 mls/hr IV ONCE ONE Rx#: [id number] Levofloxacin 250mg/50mL 50 250 mg In 50 ml @ 50 mls/ hr IV Q24HR [facility] Rx#: [id number] Norepinephrine 4 mg In 114.871 111.189 Dextrose 5% 250 ml @ 8 MCG/MIN 30.48 mls/hr IV TITR PRN Rx#:[id number] Piperacillin Sodium/ 100 50 Tazobact 3.375 gm In Sodium Chloride 0.9% 50 ml @ 100 mls/hr IV Q8HR [facility] Rx#:[id number] Sodium Chloride 0.9% 1, 1000 000 ml @ 70 mls/hr IV . [id number] [facility] Rx#:[id number] Oral 150 450 Output: Urine 1000 350 Other: # Bowel Movements 0 Active Medications: Current Medications Acetaminophen (Tylenol) 650 mg PO Q4H PRN PRN Reason: Pain (Mild) Stop: 07/03/17 16:21 Last Admin: 05/04/17 16:46 Dose: 650 mg Albuterol/Ipratropium (Duoneb Neb) 3 ml HHN [id number] PRN PRN Reason: Wheezing Stop: 07/03/17 06:59 Last Admin: 05/05/17 19:02 Dose: 3 ml Diltiazem HCl (Cardizem) 5 mg IVP Q6H PRN PRN Reason: HR > 120 Stop: 07/03/17 14:59 Last Admin: 05/05/17 13:20 Dose: 5 mg Divalproex Sodium (Depakote Dr) 250 mg PO BID [facility] PRN Reason: Protocol Stop: 07/03/17 08:59 Last Admin: 05/05/17 17:49 Dose: 250 mg Levofloxacin (Levaquin Pb) 250 mg in 50 mls @ 50 mls/hr IV Q24HR [facility] Stop: 07/03/17 20:59 Last Infusion: 05/04/17 21:36 Dose: Infused Piperacillin Sod/Tazobactam (Sod 3.375 gm/ Sodium Chloride) 50 mls @ 100 mls/ hr IV Q8HR [facility] Stop: 07/03/17 04:59 Last Infusion: 05/05/17 13:50 Dose: Infused Sodium Chloride (Nacl 0.9%) 1,000 mls @ 70 mls/hr IV .[id number] [facility] Stop: 07/03/17 01:59 Last Admin: 05/05/17 09:59 Dose: 70 mls/hr Norepinephrine Bitartrate 4 mg (/ Dextrose) 254 mls @ 30.48 mls/hr IV TITR PRN ; Protocol; 8 MCG/MIN PRN Reason: BP MAINTENANCE (PER PROTOCOL) Stop: 07/03/17 09:26 Last Titration: 05/05/17 10:02 Dose: 2 mcg/min, 7.62 mls/hr Amiodarone HCl 450 mg/ (Dextrose) 259 mls @ 43.167 mls/hr IV X1 ONE PRN Reason: Protocol Stop: 05/05/17 20:59 Last Admin: 05/05/17 14:40 Dose: 1 mg/min, 34.53 mls/hr Amiodarone HCl/Dextrose (Cordarone Iv Premix) 450 mg in 250 mls @ 14 mls/hr IV X1 ONE Stop: 05/06/17 14:51 Lorazepam (Ativan) 1 mg IVP Q6HR PRN; Protocol PRN Reason: restlessness and agitation Stop: 07/03/17 00:26 Lorazepam (Ativan) 0.5 mg PO Q4HR PRN; Protocol PRN Reason: Anxiety Stop: 07/03/17 05:50 Methylprednisolone Sodium Succinate (Solu-Medrol) 40 mg IVP Q8HR [facility] Stop: 07/03/17 20:59 Last Admin: 05/05/17 13:18 Dose: 40 mg Miscellaneous (Pharmacy To Dose) 1 ea PRN [facility] Stop: 07/04/17 13:59 Miscellaneous (Probiotic Screen) 1 [facility] PRN PRN PRN Reason: PROTOCOL Stop: 07/04/17 16:18 General: no acute distress, well developed, well nourished HEENT: atraumatic, normocephalic, PERRLA, EOMI Neck: supple, no thyromegaly Cardiovascular: S1S2, regular Lungs: clear to auscultation bilaterally, clear to percussion Abdomen: soft, no tender, no distended Extremities: no cyanosis, no clubbing, no edema Neurological: awake, alert, oriented Skin: intact Infectious Disease Assmt/Plan - Problem List Patient Problems: All Active Problems INCREASED AGITATION AND POOR ORAL INTAKE (Acute) - Assessment Assessment: Pneumonia - Plan Plan: continue zosyn.
[2017-05-05] MEDS ORDERED: AMIODARONE 450 MG/250 ML IV ONE (21:00)
[2017-05-05] MEDS: Levofloxacin 250 mg/50 mL Premix Bag IV SCH (21:02)
[2017-05-06] MEDS: Albuterol/Ipratropium Neb 3 ML AERS HHN PRN ×6 (01:49→19:29)
[2017-05-06] MEDS: methylPREDNISolone SS 40 mg Vial IVP SCH ×2 (04:09→13:44)
[2017-05-06 04:59] LABS: ANION GAP 12.5 (7.0-16.0); BUN - UREA NITROGEN 13 mg/dL (7-25); CALCIUM SERUM 8.3 mg/dL (8.6-10.3); CARBON DIOXIDE 22.3 mEq/L (21.0-31.0); CHLORIDE 103 mEq/L (98-107); CREATININE - SERUM 0.7 mg/dL (0.7-1.3); GLUCOSE 141 mg/dL (70-105); POTASSIUM SERUM 3.8 mEq/L (3.5-5.1); SODIUM SERUM 134 mEq/L (136-145)
--- NOTE | 2017-05-06 11:37 | Infectious Disease Prog Note ---
Infectious Disease Subjective - Review of Systems Service Date: 05/06/17 Subjective: Feeling better, there is no fever. Doing well. Infectious Disease Objective - Results Result Diagrams: 05/04/17 04:45 05/06/17 04:15 Recent Labs: Laboratory Last Values WBC 4.5 Th/cmm (4.8-10.8) L 05/04/17 04:45 RBC 4.01 Mil/cmm (3.80-5.80) 05/04/17 04:45 Hgb 13.1 gm/dL (12-16) 05/04/17 04:45 Hct 38.8 % (41.0-60) L D 05/04/17 04:45 MCV 96.9 fl (80-99) 05/04/17 04:45 MCH 32.8 pg (27.0-31.0) H 05/04/17 04:45 MCHC Differential 33.8 pg (28.0-36.0) 05/04/17 04:45 RDW 15.1 % (11.5-20.0) 05/04/17 04:45 Plt Count 101 Th/cmm (150-400) L 05/04/17 04:45 MPV 10.3 fl 05/04/17 04:45 Band Neutrophils % 3 % (0-10) 05/04/17 04:45 Neutrophils (Manual) 48 % (40-80) 05/04/17 04:45 Lymphocytes 18 % (20-50) L 05/04/17 04:45 Monocytes 26 % (2-10) H 05/04/17 04:45 Eosinophils 2 % (0-5) 05/04/17 04:45 Atypical Lymphocytes 3 % 05/04/17 04:45 Hypochromia 1+ 05/04/17 04:45 Platelet Estimate DECREASED PLATELETS (NORMAL) 05/04/17 04:45 Platelet Morphology GIANT PLATELETS SEEN (NORMAL) 05/03/17 23:55 Anisocytosis 1+ 05/04/17 04:45 Microcytosis 1+ 05/04/17 04:45 Macrocytosis 1+ 05/04/17 04:45 RBC Morph Micro Appear NORMAL (NORMAL) 05/03/17 23:55 Sodium 134 mEq/L (136-145) L 05/06/17 04:15 Potassium 3.8 mEq/L (3.5-5.1) 05/06/17 04:15 Chloride 103 mEq/L (98-107) 05/06/17 04:15 Carbon Dioxide 22.3 mEq/L (21.0-31.0) 05/06/17 04:15 Anion Gap 12.5 (7.0-16.0) 05/06/17 04:15 BUN 13 mg/dL (7-25) 05/06/17 04:15 Creatinine 0.7 mg/dL (0.7-1.3) 05/06/17 04:15 Est GFR ( Amer) TNP 05/06/17 04:15 Est GFR (Non-Af Amer) TNP 05/06/17 04:15 BUN/Creatinine Ratio 18.6 05/06/17 04:15 Glucose 141 mg/dL (70-105) H 05/06/17 04:15 Whole Bld Lactic Acid 1.82 mmol/L (0.60-1.99) 05/03/17 23:55 Calcium 8.3 mg/dL (8.6-10.3) L 05/06/17 04:15 Total Bilirubin 1.5 mg/dL (0.3-1.0) H 05/04/17 04:45 AST 23 U/L (13-39) 05/04/17 04:45 ALT 11 U/L (7-52) 05/04/17 04:45 Alkaline Phosphatase 47 U/L (34-104) 05/04/17 04:45 B-Natriuretic Peptide 457.0 pg/mL (5.0-100.0) H 05/06/17 04:15 Total Protein 5.2 gm/dL (6.0-8.3) L 05/04/17 04:45 Albumin 2.6 gm/dL (4.2-5.5) L 05/04/17 04:45 Globulin 2.6 gm/dL 05/04/17 04:45 Albumin/Globulin Ratio 1.0 (1.0-1.8) 05/04/17 04:45 Urine Source [place] 05/04/17 06:45 Urine Color YELLOW 05/04/17 06:45 Urine Clarity HAZY (CLEAR) 05/04/17 06:45 Urine pH 8.0 (4.6 - 8.0) 05/04/17 06:45 Ur Specific [place] 1.015 (1.005-1.030) 05/04/17 06:45 Urine Protein TRACE mg/dL (NEGATIVE) 05/04/17 06:45 Urine Glucose (UA) NEGATIVE mg/dL (NEGATIVE) 05/04/17 06:45 Urine Ketones NEGATIVE mg/dL (NEGATIVE) 05/04/17 06:45 Urine Blood MODERATE (NEGATIVE) H 05/04/17 06:45 Urine Nitrate NEGATIVE (NEGATIVE) 05/04/17 06:45 Urine Bilirubin SMALL (NEGATIVE) H 05/04/17 06:45 Urine Urobilinogen 2.0 E.U./dL (0.2 - 1.0) 05/04/17 06:45 Ur Leukocyte Esterase NEGATIVE (NEGATIVE) 05/04/17 06:45 Urine RBC 5-10 /hpf (0-5) H 05/04/17 06:45 Urine WBC 2-5 /hpf (0-5) H 05/04/17 06:45 Ur Epithelial Cells MODERATE /lpf (FEW) 05/04/17 06:45 Amorphous Sediment FEW URATES (NONE SEEN) 05/04/17 06:45 Urine Bacteria MODERATE /hpf (NONE SEEN) H 05/04/17 06:45 - Physical Exam Vitals and I&O: Vital Signs Temp 96.5 F 05/06/17 10:00 Pulse 109 05/06/17 11:00 Resp 17 05/06/17 10:00 BP 110/81 05/06/17 11:00 Pulse Ox 100 05/06/17 10:00 Intake & Output 05/05/17 05/06/17 05/06/17 18:59 06:59 18:59 Intake Total 1216.759 8262.169 Output Total 350 370 Balance 2280.271 1520.169 Weight (lbs) 54.431 kg 54.601 kg Intake: Intake, IV Amount 4062.666 3648.169 Amiodarone 150 mg In 103 Dextrose 5% 100 ml @ 618 mls/hr IV ONCE ONE Rx#: [id number] Levofloxacin 250mg/50mL 50 250 mg In 50 ml @ 50 mls/ hr IV Q24HR [facility] Rx#: [id number] Norepinephrine 4 mg In 111.189 82.169 Dextrose 5% 250 ml @ 8 MCG/MIN 30.48 mls/hr IV TITR PRN Rx#:[id number] Piperacillin Sodium/ 50 100 Tazobact 3.375 gm In Sodium Chloride 0.9% 50 ml @ 100 mls/hr IV Q8HR [facility] Rx#:[id number] Sodium Chloride 0.9% 1, 1000 770 000 ml @ 70 mls/hr IV . [id number] [facility] Rx#:[id number] Oral 450 250 Other 135 Output: Urine 350 370 Other: # Bowel Movements 0 Active Medications: Current Medications Acetaminophen (Tylenol) 650 mg PO Q4H PRN PRN Reason: Pain (Mild) Stop: 07/03/17 16:21 Last Admin: 05/04/17 16:46 Dose: 650 mg Albuterol/Ipratropium (Duoneb Neb) 3 ml HHN [id number] PRN PRN Reason: Wheezing Stop: 07/03/17 06:59 Last Admin: 05/06/17 07:55 Dose: 3 ml Diltiazem HCl (Cardizem) 5 mg IVP Q6H PRN PRN Reason: HR > 120 Stop: 07/03/17 14:59 Last Admin: 05/05/17 13:20 Dose: 5 mg Divalproex Sodium (Depakote Dr) 250 mg PO BID [facility] PRN Reason: Protocol Stop: 07/03/17 08:59 Last Admin: 05/05/17 17:49 Dose: 250 mg Levofloxacin (Levaquin Pb) 250 mg in 50 mls @ 50 mls/hr IV Q24HR [facility] Stop: 07/03/17 20:59 Last Infusion: 05/05/17 22:05 Dose: Infused Piperacillin Sod/Tazobactam (Sod 3.375 gm/ Sodium Chloride) 50 mls @ 100 mls/ hr IV Q8HR [facility] Stop: 07/03/17 04:59 Last Infusion: 05/06/17 04:40 Dose: Infused Sodium Chloride (Nacl 0.9%) 1,000 mls @ 70 mls/hr IV .[id number] [facility] Stop: 07/03/17 01:59 Last Admin: 05/05/17 20:59 Dose: 70 mls/hr Norepinephrine Bitartrate 4 mg (/ Dextrose) 254 mls @ 30.48 mls/hr IV TITR PRN ; Protocol; 8 MCG/MIN PRN Reason: BP MAINTENANCE (PER PROTOCOL) Stop: 07/03/17 09:26 Last Admin: 05/05/17 20:49 Dose: 3 mcg/min, 11.43 mls/hr Amiodarone HCl/Dextrose (Cordarone Iv Premix) 450 mg in 250 mls @ 14 mls/hr IV X1 ONE Stop: 05/06/17 14:51 Last Admin: 05/05/17 21:00 Dose: 14 mls/hr Lorazepam (Ativan) 1 mg IVP Q6HR PRN; Protocol PRN Reason: restlessness and agitation Stop: 07/03/17 00:26 Last Admin: 05/06/17 03:30 Dose: 1 mg Lorazepam (Ativan) 0.5 mg PO Q4HR PRN; Protocol PRN Reason: Anxiety Stop: 07/03/17 05:50 Methylprednisolone Sodium Succinate (Solu-Medrol) 40 mg IVP Q8HR [facility] Stop: 07/03/17 20:59 Last Admin: 05/06/17 04:09 Dose: 40 mg Miscellaneous (Pharmacy To Dose) 1 [facility] PRN [facility] Stop: 07/04/17 13:59 Miscellaneous (Probiotic Screen) 1 [facility] PRN PRN PRN Reason: PROTOCOL Stop: 07/04/17 16:18 General: no acute distress, well developed, well nourished HEENT: atraumatic, normocephalic, PERRLA, EOMI, moist mucous membrane Neck: supple, no thyromegaly Cardiovascular: S1S2, regular Lungs: clear to auscultation bilaterally, clear to percussion Abdomen: soft, no tender, no distended, no mass, no rebound Extremities: no cyanosis, no clubbing, no edema Neurological: awake, alert, oriented Skin: intact Infectious Disease Assmt/Plan - Problem List Patient Problems: All Active Problems INCREASED AGITATION AND POOR ORAL INTAKE (Acute) - Assessment Assessment: 1. Pneumonia. 2. COPD. 3. Psychosis. - Plan Plan: Continue zosyn.
[2017-05-06] MEDS ORDERED: Albuterol/Ipratropium Neb 3 ML AERS HHN PRN ×2 (13:54→19:34)
[2017-05-06] MEDS ORDERED: Magnesium Hydroxide (MOM) 30 mL UDC PO PRN (13:54)
[2017-05-06] MEDS ORDERED: Maalox 30 mL Cup PO PRN (13:54)
--- NOTE | 2017-05-06 13:58 | Cardiology ---
05/05/2017 ECHOCARDIOGRAM REPORT A patient of Dr. Madrid. M-MODE ECHOCARDIOGRAM: Mitral valve, anterior leaflet of mitral valve shows decreased excursion, EF velocity with mitral stenosis. Left ventricular posterior wall shows increased thickness, normal excursion. Interventricular septum shows increased thickness, normal excursion. Hypertrophy of the left ventricle, ejection fraction 50%. Left atrium enlarged, 4.8 cm. Aortic root shows normal dimension with aortic stenosis. CONCLUSION: Mitral stenosis, aortic stenosis, ejection fraction 50%, left atrial enlargement, hypertrophy of the left ventricle. 2D ECHO: Long axis view shows normal size left ventricle with hypertrophy of the left ventricle, mitral stenosis. Left atrium enlarged. Aortic root showed normal dimensions with aortic stenosis. Short axis view of mitral valve shows mitral stenosis. Short axis view of aortic valve shows aortic stenosis. Apical four chamber view showed normal sized left ventricle with hypertrophy of the left ventricle. Left atrium enlarged. Right ventricular cavity, right atrium normal. Mitral valve shows mitral stenosis. CONCLUSION: Mitral stenosis, aortic stenosis, left atrial enlargement, ejection fraction 50%, hypertrophy of the left ventricle. Doppler study, poor quality. Trace tricuspid regurgitation. [facility]# [id number]
--- NOTE | 2017-05-06 16:19 | Progress Notes ---
DATE: 05/05/2017 Chart reviewed and the patient interviewed. Also discussed the patient's condition with the staff and reviewed records and labs. The patient is calm and cooperative. He also is still withdrawn. He also still has periods of anxiety, but less than before and he has been cooperative with the treatment. Otherwise, the patient continued to follow instructions, but he seems to be confused. JOB# [id number]
--- NOTE | 2017-05-06 18:49 | Internal Medicine Prog Note ---
Internal Medicine Subjective - Subjective Service Date: 05/06/17 Patient seen and examined:: with staff Patient is:: awake Per staff patient has:: tolerating meds Internal Medicine Objective - Results Result Diagrams: 05/04/17 04:45 05/06/17 04:15 Recent Labs: Laboratory Last Values WBC 4.5 Th/cmm (4.8-10.8) L 05/04/17 04:45 RBC 4.01 Mil/cmm (3.80-5.80) 05/04/17 04:45 Hgb 13.1 gm/dL (12-16) 05/04/17 04:45 Hct 38.8 % (41.0-60) L D 05/04/17 04:45 MCV 96.9 fl (80-99) 05/04/17 04:45 MCH 32.8 pg (27.0-31.0) H 05/04/17 04:45 MCHC Differential 33.8 pg (28.0-36.0) 05/04/17 04:45 RDW 15.1 % (11.5-20.0) 05/04/17 04:45 Plt Count 101 Th/cmm (150-400) L 05/04/17 04:45 MPV 10.3 fl 05/04/17 04:45 Band Neutrophils % 3 % (0-10) 05/04/17 04:45 Neutrophils (Manual) 48 % (40-80) 05/04/17 04:45 Lymphocytes 18 % (20-50) L 05/04/17 04:45 Monocytes 26 % (2-10) H 05/04/17 04:45 Eosinophils 2 % (0-5) 05/04/17 04:45 Atypical Lymphocytes 3 % 05/04/17 04:45 Hypochromia 1+ 05/04/17 04:45 Platelet Estimate DECREASED PLATELETS (NORMAL) 05/04/17 04:45 Platelet Morphology GIANT PLATELETS SEEN (NORMAL) 05/03/17 23:55 Anisocytosis 1+ 05/04/17 04:45 Microcytosis 1+ 05/04/17 04:45 Macrocytosis 1+ 05/04/17 04:45 RBC Morph Micro Appear NORMAL (NORMAL) 05/03/17 23:55 Sodium 134 mEq/L (136-145) L 05/06/17 04:15 Potassium 3.8 mEq/L (3.5-5.1) 05/06/17 04:15 Chloride 103 mEq/L (98-107) 05/06/17 04:15 Carbon Dioxide 22.3 mEq/L (21.0-31.0) 05/06/17 04:15 Anion Gap 12.5 (7.0-16.0) 05/06/17 04:15 BUN 13 mg/dL (7-25) 05/06/17 04:15 Creatinine 0.7 mg/dL (0.7-1.3) 05/06/17 04:15 Est GFR ( Amer) TNP 05/06/17 04:15 Est GFR (Non-Af Amer) TNP 05/06/17 04:15 BUN/Creatinine Ratio 18.6 05/06/17 04:15 Glucose 141 mg/dL (70-105) H 05/06/17 04:15 Whole Bld Lactic Acid 1.82 mmol/L (0.60-1.99) 05/03/17 23:55 Calcium 8.3 mg/dL (8.6-10.3) L 05/06/17 04:15 Total Bilirubin 1.5 mg/dL (0.3-1.0) H 05/04/17 04:45 AST 23 U/L (13-39) 05/04/17 04:45 ALT 11 U/L (7-52) 05/04/17 04:45 Alkaline Phosphatase 47 U/L (34-104) 05/04/17 04:45 B-Natriuretic Peptide 457.0 pg/mL (5.0-100.0) H 05/06/17 04:15 Total Protein 5.2 gm/dL (6.0-8.3) L 05/04/17 04:45 Albumin 2.6 gm/dL (4.2-5.5) L 05/04/17 04:45 Globulin 2.6 gm/dL 05/04/17 04:45 Albumin/Globulin Ratio 1.0 (1.0-1.8) 05/04/17 04:45 Urine Source [place] 05/04/17 06:45 Urine Color YELLOW 05/04/17 06:45 Urine Clarity HAZY (CLEAR) 05/04/17 06:45 Urine pH 8.0 (4.6 - 8.0) 05/04/17 06:45 Ur Specific [place] 1.015 (1.005-1.030) 05/04/17 06:45 Urine Protein TRACE mg/dL (NEGATIVE) 05/04/17 06:45 Urine Glucose (UA) NEGATIVE mg/dL (NEGATIVE) 05/04/17 06:45 Urine Ketones NEGATIVE mg/dL (NEGATIVE) 05/04/17 06:45 Urine Blood MODERATE (NEGATIVE) H 05/04/17 06:45 Urine Nitrate NEGATIVE (NEGATIVE) 05/04/17 06:45 Urine Bilirubin SMALL (NEGATIVE) H 05/04/17 06:45 Urine Urobilinogen 2.0 E.U./dL (0.2 - 1.0) 05/04/17 06:45 Ur Leukocyte Esterase NEGATIVE (NEGATIVE) 05/04/17 06:45 Urine RBC 5-10 /hpf (0-5) H 05/04/17 06:45 Urine WBC 2-5 /hpf (0-5) H 05/04/17 06:45 Ur Epithelial Cells MODERATE /lpf (FEW) 05/04/17 06:45 Amorphous Sediment FEW URATES (NONE SEEN) 05/04/17 06:45 Urine Bacteria MODERATE /hpf (NONE SEEN) H 05/04/17 06:45 - Physical Exam Vitals and I&O: Vital Signs Temp 96.9 F 05/06/17 15:00 Pulse 117 05/06/17 18:11 Resp 20 05/06/17 18:11 BP 110/83 05/06/17 18:11 Pulse Ox 100 05/06/17 18:11 Intake & Output 05/05/17 05/06/17 05/06/17 18:59 06:59 18:59 Intake Total 5806.629 9734.169 562.35 Output Total 350 370 600 Balance 1889.729 5849.169 -37.65 Weight (lbs) 54.431 kg 54.601 kg 54.601 kg Intake: Intake, IV Amount 9254.237 5709.169 187.35 Amiodarone 150 mg In 103 Dextrose 5% 100 ml @ 618 mls/hr IV ONCE ONE Rx#: [id number] Levofloxacin 250mg/50mL 50 250 mg In 50 ml @ 50 mls/ hr IV Q24HR [facility] Rx#: [id number] Norepinephrine 4 mg In 111.189 82.169 137.35 Dextrose 5% 250 ml @ 8 MCG/MIN 30.48 mls/hr IV TITR PRN Rx#:[id number] Piperacillin Sodium/ 50 100 50 Tazobact 3.375 gm In Sodium Chloride 0.9% 50 ml @ 100 mls/hr IV Q8HR [facility] Rx#:[id number] Sodium Chloride 0.9% 1, 1000 770 000 ml @ 70 mls/hr IV . [id number] [facility] Rx#:[id number] Oral 450 250 375 Other 135 Output: Urine 350 370 600 Other: # Bowel Movements 0 0 Active Medications: Current Medications Acetaminophen (Tylenol) 650 mg PO Q4H PRN PRN Reason: Pain (Mild) Stop: 07/03/17 16:21 Last Admin: 05/04/17 16:46 Dose: 650 mg Acetaminophen (Tylenol) 650 mg PO Q4H PRN PRN Reason: Pain or Fever >101 Al Hydrox/Mg Hydrox/Simethicone (Maalox) 30 ml PO Q4H PRN PRN Reason: GI DISTRESS Stop: 07/05/17 13:53 Albuterol/Ipratropium (Duoneb Neb) 3 ml HHN [id number] PRN PRN Reason: Wheezing Stop: 07/03/17 06:59 Last Admin: 05/06/17 16:14 Dose: 3 ml Albuterol/Ipratropium (Duoneb Neb) 3 ml HHN Q4HRT PRN PRN Reason: Wheezing Stop: 07/05/17 13:53 Amiodarone HCl (Cordarone) 200 mg PO DAILY [facility] Stop: 07/05/17 14:59 Last Admin: 05/06/17 16:14 Dose: 200 mg Aspirin (Ecotrin) 81 mg PO DAILY [facility] Stop: 07/06/17 08:59 Cholecalciferol (Vitamin D3) 5,000 iu PO DAILY [facility] Stop: 07/06/17 08:59 Diltiazem HCl (Cardizem) 5 mg IVP Q6H PRN PRN Reason: HR > 120 Stop: 07/03/17 14:59 Last Admin: 05/05/17 13:20 Dose: 5 mg Divalproex Sodium (Depakote Sprinkle) 250 mg PO BID [facility] PRN Reason: Protocol Stop: 03/24/18 16:59 Last Admin: 05/06/17 16:14 Dose: 250 mg Donepezil HCl (Aricept) 10 mg PO DAILY [facility] Stop: 07/06/17 08:59 Levofloxacin (Levaquin Pb) 250 mg in 50 mls @ 50 mls/hr IV Q24HR [facility] Stop: 07/03/17 20:59 Last Infusion: 05/05/17 22:05 Dose: Infused Piperacillin Sod/Tazobactam (Sod 3.375 gm/ Sodium Chloride) 50 mls @ 100 mls/ hr IV Q8HR [facility] Stop: 07/03/17 04:59 Last Infusion: 05/06/17 14:15 Dose: Infused Sodium Chloride (Nacl 0.9%) 1,000 mls @ 70 mls/hr IV .[id number] [facility] Stop: 07/03/17 01:59 Last Admin: 05/05/17 20:59 Dose: 70 mls/hr Norepinephrine Bitartrate 4 mg (/ Dextrose) 254 mls @ 30.48 mls/hr IV TITR PRN ; Protocol; 8 MCG/MIN PRN Reason: BP MAINTENANCE (PER PROTOCOL) Stop: 07/03/17 09:26 Last Titration: 05/06/17 10:00 Dose: 0 mcg/min, 0 mls/hr Levothyroxine Sodium (Synthroid) 0.05 mg PO QDAC [facility] Stop: 07/06/17 07:29 Lorazepam (Ativan) 1 mg IVP Q6HR PRN; Protocol PRN Reason: restlessness and agitation Stop: 07/03/17 00:26 Last Admin: 05/06/17 03:30 Dose: 1 mg Lorazepam (Ativan) 0.5 mg PO Q4HR PRN; Protocol PRN Reason: Anxiety Stop: 07/03/17 05:50 Lorazepam (Ativan) 0.5 mg PO Q4H PRN; Protocol PRN Reason: Anxiety Stop: 07/05/17 13:53 Magnesium Hydroxide (Milk Of Magnesia) 30 ml PO HS PRN PRN Reason: Constipation Stop: 07/05/17 13:53 Methylprednisolone Sodium Succinate (Solu-Medrol) 40 mg IVP Q8HR [facility] Stop: 07/03/17 20:59 Last Admin: 05/06/17 13:44 Dose: 40 mg Miscellaneous (Pharmacy To Dose) 1 ea MC PRN [facility] Stop: 07/04/17 13:59 Miscellaneous (Probiotic Screen) 1 ea PRN PRN PRN Reason: PROTOCOL Stop: 07/04/17 16:18 Multivitamins/Vitamin C (Theragran) 1 tab PO DAILY [facility] Stop: 07/06/17 08:59 Tamsulosin HCl (Flomax) 0.4 mg PO DAILY [facility] Stop: 07/06/17 08:59 Zolpidem Tartrate (Ambien) 5 mg PO HS PRN PRN Reason: Insomnia Stop: 07/05/17 20:59 General: weak HEENT: NC/AT Neck: Supple Lungs: CTAB Cardiovascular: RRR Abdomen: non-tender Internal Medicine Assmt/Plan - Assessment Assessment: 1. Pneumonia. 2. COPD. 3. Psychosis. - Plan Plan: continue icu monitoring continue iv antibiotics as per id levophed titrate as per protocol cpm
[2017-05-06] MEDS ORDERED: Ipratropium Neb 0.5 mg/2.5 mL UD HHN PRN (20:47)
[2017-05-06] MEDS: Diltiazem 5 mg/mL 5mL Vial IVP PRN (21:00)
[2017-05-06] MEDS: Levofloxacin 250 mg/50 mL Premix Bag IV SCH (21:21)
[2017-05-06] MEDS ORDERED: Albuterol/Ipratropium Neb 3 ML AERS HHN SCH (23:00)
[2017-05-06] MEDS: Albuterol Nebulizer 2.5mg/3mL HHN SCH (23:31)
[2017-05-06] MEDS: Ipratropium Neb 0.5 mg/2.5 mL UD HHN SCH (23:46)
[2017-05-07] MEDS: methylPREDNISolone SS 40 mg Vial IVP SCH ×3 (00:04→13:22)
[2017-05-07] MEDS ORDERED: Ipratropium Neb 0.5 mg/2.5 mL UD HHN SCH (01:00)
[2017-05-07] MEDS: Ipratropium Neb 0.5 mg/2.5 mL UD HHN SCH ×4 (01:43→19:20)
[2017-05-07] MEDS: Albuterol Nebulizer 2.5mg/3mL HHN SCH ×4 (01:43→19:21)
[2017-05-07] MEDS: Diltiazem 5 mg/mL 5mL Vial IVP PRN ×4 (02:15→23:11)
[2017-05-07] MEDS: Sodium Chloride 0.9% 1,000 ML IV SCH ×2 (06:11→20:56)
[2017-05-07 07:28] LABS: HEMOGLOBIN 12.4 gm/dL (12-16); LYMPHOCYTE ABSOLUTE 0.3 Th/cmm (1.5-3.0); MEAN CELL VOLUME 98.2 fl (80-99); MEAN CORPUSCULAR HEMOGLOBIN 32.8 pg (27.0-31.0); MEAN CORPUSCULAR HGB CONC 33.4 pg (28.0-36.0); MEAN PLATELET VOLUME 10.1 fl; MONOCYTE ABSOLUTE 0.7 Th/cmm (0.3-1.0); NEUTROPHILE ABSOLUTE 10.2 Th/cmm (1.8-8.0); PLATELET COUNT 115 Th/cmm (150-400); RED BLOOD COUNT 3.77 Mil/cmm (3.80-5.80); RED CELL DISTRIBUTION WIDTH 15.6 % (11.5-20.0)
[2017-05-07 07:29] LABS: WHITE BLOOD COUNT 11.2 Th/cmm (4.8-10.8)
[2017-05-07 07:45] LABS: ANION GAP 12.2 (7.0-16.0); BUN - UREA NITROGEN 19 mg/dL (7-25); CALCIUM SERUM 8.4 mg/dL (8.6-10.3); CARBON DIOXIDE 23.9 mEq/L (21.0-31.0); CHLORIDE 105 mEq/L (98-107); CREATININE - SERUM 0.8 mg/dL (0.7-1.3); GLUCOSE 128 mg/dL (70-105); POTASSIUM SERUM 4.1 mEq/L (3.5-5.1); SODIUM SERUM 137 mEq/L (136-145)
[2017-05-07 08:22] LABS: INR 1.66 (0.5-1.4); PROTHROMBIN TIME (TEST) 17.8 SECONDS (9.5-11.5)
--- NOTE | 2017-05-07 08:48 | Diagnostic Imaging Report ---
Exam: Chest portable x-ray HISTORY shortness of breath Findings: Portable examination of the chest at the 0818 hours reviewed compatible prior study 05/05/2017 The study again demonstrates a unchanged appearance of bilateral infiltrates with superimposed effusions greater on the right side. The heart is enlarged. Bony thorax is intact. The hepatic changes right minor fissure appreciated. The aortic arch calcified. Bony thorax is intact. IMPRESSION: Unchanged appearance of the bilateral pneumonia, superimposed effusions greater right side. Cardiomegaly congestion.
[2017-05-07] MEDS: Levothyroxine 0.05 Mg Tab PO SCH ×2 (09:13→16:22)
[2017-05-07] MEDS: Multivitamin Tab PO SCH (09:14)
--- NOTE | 2017-05-07 09:51 | General Progress Note ---
Subjective - Review of Systems Events since last encounter: in no acute distress Objective - Results Result Diagrams: 05/07/17 06:20 05/07/17 06:20 Recent Labs: Laboratory Last Values WBC 11.2 Th/cmm (4.8-10.8) H D 05/07/17 06:20 RBC 3.77 Mil/cmm (3.80-5.80) L 05/07/17 06:20 Hgb 12.4 gm/dL (12-16) 05/07/17 06:20 Hct 37.0 % (41.0-60) L 05/07/17 06:20 MCV 98.2 fl (80-99) 05/07/17 06:20 MCH 32.8 pg (27.0-31.0) H 05/07/17 06:20 MCHC Differential 33.4 pg (28.0-36.0) 05/07/17 06:20 RDW 15.6 % (11.5-20.0) 05/07/17 06:20 Plt Count 115 Th/cmm (150-400) L 05/07/17 06:20 MPV 10.1 fl 05/07/17 06:20 Band Neutrophils % 3 % (0-10) 05/04/17 04:45 Neutrophils (Manual) 48 % (40-80) 05/04/17 04:45 Lymphocytes 18 % (20-50) L 05/04/17 04:45 Monocytes 26 % (2-10) H 05/04/17 04:45 Eosinophils 2 % (0-5) 05/04/17 04:45 Atypical Lymphocytes 3 % 05/04/17 04:45 Hypochromia 1+ 05/04/17 04:45 Platelet Estimate DECREASED PLATELETS (NORMAL) 05/04/17 04:45 Platelet Morphology GIANT PLATELETS SEEN (NORMAL) 05/03/17 23:55 Anisocytosis 1+ 05/04/17 04:45 Microcytosis 1+ 05/04/17 04:45 Macrocytosis 1+ 05/04/17 04:45 RBC Morph Micro Appear NORMAL (NORMAL) 05/03/17 23:55 PT 17.8 SECONDS (9.5-11.5) H 05/07/17 08:00 INR 1.66 (0.5-1.4) H 05/07/17 08:00 PTT (Actin FS) 26.6 SECONDS (26.0-38.0) 05/07/17 08:00 Sodium 137 mEq/L (136-145) 05/07/17 06:20 Potassium 4.1 mEq/L (3.5-5.1) 05/07/17 06:20 Chloride 105 mEq/L (98-107) 05/07/17 06:20 Carbon Dioxide 23.9 mEq/L (21.0-31.0) 05/07/17 06:20 Anion Gap 12.2 (7.0-16.0) 05/07/17 06:20 BUN 19 mg/dL (7-25) 05/07/17 06:20 Creatinine 0.8 mg/dL (0.7-1.3) 05/07/17 06:20 Est GFR ( Amer) TNP 05/07/17 06:20 Est GFR (Non-Af Amer) TNP 05/07/17 06:20 BUN/Creatinine Ratio 23.8 05/07/17 06:20 Glucose 128 mg/dL (70-105) H 05/07/17 06:20 Whole Bld Lactic Acid 1.82 mmol/L (0.60-1.99) 05/03/17 23:55 Calcium 8.4 mg/dL (8.6-10.3) L 05/07/17 06:20 Total Bilirubin 1.5 mg/dL (0.3-1.0) H 05/04/17 04:45 AST 23 U/L (13-39) 05/04/17 04:45 ALT 11 U/L (7-52) 05/04/17 04:45 Alkaline Phosphatase 47 U/L (34-104) 05/04/17 04:45 B-Natriuretic Peptide 543.0 pg/mL (5.0-100.0) H 05/07/17 06:20 Total Protein 5.2 gm/dL (6.0-8.3) L 05/04/17 04:45 Albumin 2.6 gm/dL (4.2-5.5) L 05/04/17 04:45 Globulin 2.6 gm/dL 05/04/17 04:45 Albumin/Globulin Ratio 1.0 (1.0-1.8) 05/04/17 04:45 Urine Source [place] 05/04/17 06:45 Urine Color YELLOW 05/04/17 06:45 Urine Clarity HAZY (CLEAR) 05/04/17 06:45 Urine pH 8.0 (4.6 - 8.0) 05/04/17 06:45 Ur Specific [place] 1.015 (1.005-1.030) 05/04/17 06:45 Urine Protein TRACE mg/dL (NEGATIVE) 05/04/17 06:45 Urine Glucose (UA) NEGATIVE mg/dL (NEGATIVE) 05/04/17 06:45 Urine Ketones NEGATIVE mg/dL (NEGATIVE) 05/04/17 06:45 Urine Blood MODERATE (NEGATIVE) H 05/04/17 06:45 Urine Nitrate NEGATIVE (NEGATIVE) 05/04/17 06:45 Urine Bilirubin SMALL (NEGATIVE) H 05/04/17 06:45 Urine Urobilinogen 2.0 E.U./dL (0.2 - 1.0) 05/04/17 06:45 Ur Leukocyte Esterase NEGATIVE (NEGATIVE) 05/04/17 06:45 Urine RBC 5-10 /hpf (0-5) H 05/04/17 06:45 Urine WBC 2-5 /hpf (0-5) H 05/04/17 06:45 Ur Epithelial Cells MODERATE /lpf (FEW) 05/04/17 06:45 Amorphous Sediment FEW URATES (NONE SEEN) 05/04/17 06:45 Urine Bacteria MODERATE /hpf (NONE SEEN) H 05/04/17 06:45 - Physical Exam Vitals and I&O: Vital Signs Temp 97.3 F 05/07/17 04:00 Pulse 128 05/07/17 09:07 Resp 23 05/07/17 06:59 BP 107/70 05/07/17 06:00 Pulse Ox 96 05/07/17 06:59 Intake & Output 05/06/17 05/07/17 05/07/17 18:59 06:59 18:59 Intake Total 562.35 1300 Output Total 600 300 Balance -37.65 1000 Weight (lbs) 54.601 kg 55.48 kg Intake: Intake, IV Amount 187.35 1150 Levofloxacin 250mg/50mL 50 250 mg In 50 ml @ 50 mls/ hr IV Q24HR [facility] Rx#: [id number] Norepinephrine 4 mg In 137.35 Dextrose 5% 250 ml @ 8 MCG/MIN 30.48 mls/hr IV TITR PRN Rx#:[id number] Piperacillin Sodium/ 50 100 Tazobact 3.375 gm In Sodium Chloride 0.9% 50 ml @ 100 mls/hr IV Q8HR [facility] Rx#:[id number] Sodium Chloride 0.9% 1, 1000 000 ml @ 70 mls/hr IV . [id number] [facility] Rx#:[id number] Oral 375 150 Output: Urine 600 300 Other: # Voids 1 # Bowel Movements 0 Active Medications: Current Medications Acetaminophen (Tylenol) 650 mg PO Q4H PRN PRN Reason: Pain (Mild) Stop: 07/03/17 16:21 Last Admin: 05/04/17 16:46 Dose: 650 mg Acetaminophen (Tylenol) 650 mg PO Q4H PRN PRN Reason: Pain or Fever >101 Al Hydrox/Mg Hydrox/Simethicone (Maalox) 30 ml PO Q4H PRN PRN Reason: GI DISTRESS Stop: 07/05/17 13:53 Albuterol Sulfate (Albuterol 2.5mg/3ml Neb Ud) 2.5 mg HHN Q6HRT [facility] Stop: 07/05/17 19:59 Last Admin: 05/07/17 06:59 Dose: 2.5 mg Albuterol/Ipratropium (Duoneb Neb) 3 ml HHN Q2H PRN PRN Reason: Wheezing Stop: 07/05/17 19:33 Last Admin: 05/06/17 23:27 Dose: 3 ml Amiodarone HCl (Cordarone) 200 mg PO DAILY [facility] Stop: 07/05/17 14:59 Last Admin: 05/07/17 09:13 Dose: Not Given Aspirin (Ecotrin) 81 mg PO DAILY [facility] Stop: 07/06/17 08:59 Last Admin: 05/07/17 09:12 Dose: Not Given Cholecalciferol (Vitamin D3) 5,000 iu PO DAILY [facility] Stop: 07/06/17 08:59 Last Admin: 05/07/17 09:13 Dose: Not Given Diltiazem HCl (Cardizem) 5 mg IVP Q6H PRN PRN Reason: HR > 120 Stop: 07/03/17 14:59 Last Admin: 05/07/17 09:07 Dose: 5 mg Divalproex Sodium (Depakote Sprinkle) 250 mg PO BID [facility] PRN Reason: Protocol Stop: 07/05/17 16:59 Last Admin: 05/07/17 09:14 Dose: Not Given Donepezil HCl (Aricept) 10 mg PO DAILY [facility] Stop: 07/06/17 08:59 Last Admin: 05/07/17 09:14 Dose: Not Given Levofloxacin (Levaquin Pb) 250 mg in 50 mls @ 50 mls/hr IV Q24HR [facility] Stop: 07/03/17 20:59 Last Infusion: 05/06/17 22:25 Dose: Infused Piperacillin Sod/Tazobactam (Sod 3.375 gm/ Sodium Chloride) 50 mls @ 100 mls/ hr IV Q8HR [facility] Stop: 07/03/17 04:59 Last Infusion: 05/07/17 05:29 Dose: Infused Sodium Chloride (Nacl 0.9%) 1,000 mls @ 70 mls/hr IV .[id number] [facility] Stop: 07/03/17 01:59 Last Admin: 05/07/17 06:11 Dose: 70 mls/hr Norepinephrine Bitartrate 4 mg (/ Dextrose) 254 mls @ 30.48 mls/hr IV TITR PRN ; Protocol; 8 MCG/MIN PRN Reason: BP MAINTENANCE (PER PROTOCOL) Stop: 07/03/17 09:26 Last Titration: 05/06/17 10:00 Dose: 0 mcg/min, 0 mls/hr Ipratropium [place] (Atrovent Neb 0.5mg/2.5ml) 0.5 mg HHN Q6HRT [facility] Stop: 07/05/17 19:59 Last Admin: 05/07/17 06:59 Dose: 0.5 mg Levothyroxine Sodium (Synthroid) 0.05 mg PO QDAC [facility] Stop: 07/06/17 07:29 Last Admin: 05/07/17 09:13 Dose: Not Given Lorazepam (Ativan) 1 mg IVP Q6HR PRN; Protocol PRN Reason: restlessness and agitation Stop: 07/03/17 00:26 Last Admin: 05/07/17 01:35 Dose: 1 mg Lorazepam (Ativan) 0.5 mg PO Q4HR PRN; Protocol PRN Reason: Anxiety Stop: 07/03/17 05:50 Lorazepam (Ativan) 0.5 mg PO Q4H PRN; Protocol PRN Reason: Anxiety Stop: 07/05/17 13:53 Magnesium Hydroxide (Milk Of Magnesia) 30 ml PO HS PRN PRN Reason: Constipation Stop: 07/05/17 13:53 Methylprednisolone Sodium Succinate (Solu-Medrol) 60 mg IVP Q6HR [facility] Stop: 07/06/17 00:00 Last Admin: 05/07/17 05:45 Dose: 60 mg Miscellaneous (Pharmacy To Dose) 1 ea MC PRN [facility] Stop: 07/04/17 13:59 Miscellaneous (Probiotic Screen) 1 ea MC PRN PRN PRN Reason: PROTOCOL Stop: 07/04/17 16:18 Multivitamins/Vitamin C (Theragran) 1 tab PO DAILY [facility] Stop: 07/06/17 08:59 Last Admin: 05/07/17 09:14 Dose: Not Given Quetiapine Fumarate (Seroquel) 12.5 mg PO BID [facility] PRN Reason: Protocol Stop: 07/06/17 08:59 Tamsulosin HCl (Flomax) 0.4 mg PO DAILY [facility] Stop: 07/06/17 08:59 Last Admin: 05/07/17 09:15 Dose: Not Given Zolpidem Tartrate (Ambien) 5 mg PO HS PRN PRN Reason: Insomnia Stop: 07/05/17 20:59 General: No acute distress HEENT: Atraumatic Neck: Supple Cardiovascular: Regular rate, Normal S1, Normal S2 Abdomen: Bowel sounds Assessment/Plan - Problem List Patient Problems: All Active Problems INCREASED AGITATION AND POOR ORAL INTAKE (Acute) - Assessment Assessment: 1. Pneumonia. 2. COPD. 3. Psychosis. - Plan Plan: continue icu monitoring continue iv antibiotics as per id levophed titrate as per protocol cpm
[2017-05-07 10:07] LABS: pH 7.46 (7.35-7.45)
--- NOTE | 2017-05-07 12:00 | Diagnostic Imaging Report ---
Ultrasound bladder, limited History: Hematuria Comparison: None Technique/procedure: Sonography of the urinary bladder was performed in multiple planes. The prevoid bladder volume is 94 mL.. The patient was incontinent and was not unable to follow directions. Mild urinary bladder wall thickening is noted. The prostate gland is borderline prominent measuring 3.1 x 2.5 x 3.2 cm with minimal mass effect upon the base of the urinary bladder. IMPRESSION: Limited exam due to patient's medical condition. Nondistended urinary bladder is noted. Mild generalized urinary bladder wall thickening which is nonspecific and may be due to underlying infectious or inflammatory process. Borderline prominent prostate gland with minimal mass effect upon the base of the urinary bladder. Again clinical correlation is recommended.
--- NOTE | 2017-05-07 14:19 | Infectious Disease Prog Note ---
Infectious Disease Subjective - Review of Systems Service Date: 05/07/17 Subjective: Feeling better, there is no fever. Infectious Disease Objective - Results Result Diagrams: 05/07/17 06:20 05/07/17 06:20 Recent Labs: Laboratory Last Values WBC 11.2 Th/cmm (4.8-10.8) H D 05/07/17 06:20 RBC 3.77 Mil/cmm (3.80-5.80) L 05/07/17 06:20 Hgb 12.4 gm/dL (12-16) 05/07/17 06:20 Hct 37.0 % (41.0-60) L 05/07/17 06:20 MCV 98.2 fl (80-99) 05/07/17 06:20 MCH 32.8 pg (27.0-31.0) H 05/07/17 06:20 MCHC Differential 33.4 pg (28.0-36.0) 05/07/17 06:20 RDW 15.6 % (11.5-20.0) 05/07/17 06:20 Plt Count 115 Th/cmm (150-400) L 05/07/17 06:20 MPV 10.1 fl 05/07/17 06:20 Band Neutrophils % 3 % (0-10) 05/04/17 04:45 Neutrophils (Manual) 48 % (40-80) 05/04/17 04:45 Lymphocytes 18 % (20-50) L 05/04/17 04:45 Monocytes 26 % (2-10) H 05/04/17 04:45 Eosinophils 2 % (0-5) 05/04/17 04:45 Atypical Lymphocytes 3 % 05/04/17 04:45 Hypochromia 1+ 05/04/17 04:45 Platelet Estimate DECREASED PLATELETS (NORMAL) 05/04/17 04:45 Platelet Morphology GIANT PLATELETS SEEN (NORMAL) 05/03/17 23:55 Anisocytosis 1+ 05/04/17 04:45 Microcytosis 1+ 05/04/17 04:45 Macrocytosis 1+ 05/04/17 04:45 RBC Morph Micro Appear NORMAL (NORMAL) 05/03/17 23:55 PT 17.8 SECONDS (9.5-11.5) H 05/07/17 08:00 INR 1.66 (0.5-1.4) H 05/07/17 08:00 PTT (Actin FS) 26.6 SECONDS (26.0-38.0) 05/07/17 08:00 Specimen Source Arterial 05/07/17 10:00 Sample Site RB 05/07/17 10:00 pH 7.46 (7.35-7.45) H 05/07/17 10:00 pCO2 34.0 mmHg (35.0-45.0) L 05/07/17 10:00 pO2 110.0 mmHg (80.0-100.0) H 05/07/17 10:00 HCO3 25.6 mEq/L (20.0-26.0) 05/07/17 10:00 Base Excess 0.8 mEq/L (-3.0-3.0) 05/07/17 10:00 O2 Saturation 99.0 % (92.0-100.0) 05/07/17 10:00 Vent Rate 14 05/07/17 10:00 Inspired O2 40 05/07/17 10:00 Critical Value PW 05/07/17 10:00 Sodium 137 mEq/L (136-145) 05/07/17 06:20 Potassium 4.1 mEq/L (3.5-5.1) 05/07/17 06:20 Chloride 105 mEq/L (98-107) 05/07/17 06:20 Carbon Dioxide 23.9 mEq/L (21.0-31.0) 05/07/17 06:20 Anion Gap 12.2 (7.0-16.0) 05/07/17 06:20 BUN 19 mg/dL (7-25) 05/07/17 06:20 Creatinine 0.8 mg/dL (0.7-1.3) 05/07/17 06:20 Est GFR ( Amer) TNP 05/07/17 06:20 Est GFR (Non-Af Amer) TNP 05/07/17 06:20 BUN/Creatinine Ratio 23.8 05/07/17 06:20 Glucose 128 mg/dL (70-105) H 05/07/17 06:20 Whole Bld Lactic Acid 1.82 mmol/L (0.60-1.99) 05/03/17 23:55 Calcium 8.4 mg/dL (8.6-10.3) L 05/07/17 06:20 Total Bilirubin 1.5 mg/dL (0.3-1.0) H 05/04/17 04:45 AST 23 U/L (13-39) 05/04/17 04:45 ALT 11 U/L (7-52) 05/04/17 04:45 Alkaline Phosphatase 47 U/L (34-104) 05/04/17 04:45 B-Natriuretic Peptide 543.0 pg/mL (5.0-100.0) H 05/07/17 06:20 Total Protein 5.2 gm/dL (6.0-8.3) L 05/04/17 04:45 Albumin 2.6 gm/dL (4.2-5.5) L 05/04/17 04:45 Globulin 2.6 gm/dL 05/04/17 04:45 Albumin/Globulin Ratio 1.0 (1.0-1.8) 05/04/17 04:45 Urine Source [place] 05/04/17 06:45 Urine Color YELLOW 05/04/17 06:45 Urine Clarity HAZY (CLEAR) 05/04/17 06:45 Urine pH 8.0 (4.6 - 8.0) 05/04/17 06:45 Ur Specific [place] 1.015 (1.005-1.030) 05/04/17 06:45 Urine Protein TRACE mg/dL (NEGATIVE) 05/04/17 06:45 Urine Glucose (UA) NEGATIVE mg/dL (NEGATIVE) 05/04/17 06:45 Urine Ketones NEGATIVE mg/dL (NEGATIVE) 05/04/17 06:45 Urine Blood MODERATE (NEGATIVE) H 05/04/17 06:45 Urine Nitrate NEGATIVE (NEGATIVE) 05/04/17 06:45 Urine Bilirubin SMALL (NEGATIVE) H 05/04/17 06:45 Urine Urobilinogen 2.0 E.U./dL (0.2 - 1.0) 05/04/17 06:45 Ur Leukocyte Esterase NEGATIVE (NEGATIVE) 05/04/17 06:45 Urine RBC 5-10 /hpf (0-5) H 05/04/17 06:45 Urine WBC 2-5 /hpf (0-5) H 05/04/17 06:45 Ur Epithelial Cells MODERATE /lpf (FEW) 05/04/17 06:45 Amorphous Sediment FEW URATES (NONE SEEN) 05/04/17 06:45 Urine Bacteria MODERATE /hpf (NONE SEEN) H 05/04/17 06:45 - Physical Exam Vitals and I&O: Vital Signs Temp 97.8 F 05/07/17 08:00 Pulse 123 05/07/17 13:03 Resp 16 05/07/17 13:03 BP 90/70 05/07/17 11:00 Pulse Ox 100 05/07/17 13:57 Intake & Output 05/06/17 05/07/17 05/07/17 18:59 06:59 18:59 Intake Total 562.35 1300 Output Total 600 300 Balance -37.65 1000 Weight (lbs) 54.601 kg 55.48 kg Intake: Intake, IV Amount 187.35 1150 Levofloxacin 250mg/50mL 50 250 mg In 50 ml @ 50 mls/ hr IV Q24HR [facility] Rx#: [id number] Norepinephrine 4 mg In 137.35 Dextrose 5% 250 ml @ 8 MCG/MIN 30.48 mls/hr IV TITR PRN Rx#:[id number] Piperacillin Sodium/ 50 100 Tazobact 3.375 gm In Sodium Chloride 0.9% 50 ml @ 100 mls/hr IV Q8HR [facility] Rx#:[id number] Sodium Chloride 0.9% 1, 1000 000 ml @ 70 mls/hr IV . [id number] [facility] Rx#:[id number] Oral 375 150 Output: Urine 600 300 Other: # Voids 1 # Bowel Movements 0 Active Medications: Current Medications Acetaminophen (Tylenol) 650 mg PO Q4H PRN PRN Reason: Pain (Mild) Stop: 07/03/17 16:21 Last Admin: 05/04/17 16:46 Dose: 650 mg Acetaminophen (Tylenol) 650 mg PO Q4H PRN PRN Reason: Pain or Fever >101 Al Hydrox/Mg Hydrox/Simethicone (Maalox) 30 ml PO Q4H PRN PRN Reason: GI DISTRESS Stop: 07/05/17 13:53 Albuterol Sulfate (Albuterol 2.5mg/3ml Neb Ud) 2.5 mg HHN Q6HRT [facility] Stop: 07/05/17 19:59 Last Admin: 05/07/17 13:03 Dose: 2.5 mg Albuterol/Ipratropium (Duoneb Neb) 3 ml HHN Q2H PRN PRN Reason: Wheezing Stop: 07/05/17 19:33 Last Admin: 05/06/17 23:27 Dose: 3 ml Amiodarone HCl (Cordarone) 200 mg PO DAILY [facility] Stop: 07/05/17 14:59 Last Admin: 05/07/17 09:13 Dose: Not Given Aspirin (Ecotrin) 81 mg PO DAILY [facility] Stop: 07/06/17 08:59 Last Admin: 05/07/17 09:12 Dose: Not Given Cholecalciferol (Vitamin D3) 5,000 iu PO DAILY [facility] Stop: 07/06/17 08:59 Last Admin: 05/07/17 09:13 Dose: Not Given Diltiazem HCl (Cardizem) 5 mg IVP Q6H PRN PRN Reason: HR > 120 Stop: 07/03/17 14:59 Last Admin: 05/07/17 09:07 Dose: 5 mg Divalproex Sodium (Depakote Sprinkle) 250 mg PO BID [facility] PRN Reason: Protocol Stop: 07/05/17 16:59 Last Admin: 05/07/17 09:14 Dose: Not Given Donepezil HCl (Aricept) 10 mg PO DAILY [facility] Stop: 07/06/17 08:59 Last Admin: 05/07/17 09:14 Dose: Not Given Levofloxacin (Levaquin Pb) 250 mg in 50 mls @ 50 mls/hr IV Q24HR [facility] Stop: 07/03/17 20:59 Last Infusion: 05/06/17 22:25 Dose: Infused Piperacillin Sod/Tazobactam (Sod 3.375 gm/ Sodium Chloride) 50 mls @ 100 mls/ hr IV Q8HR [facility] Stop: 07/03/17 04:59 Last Admin: 05/07/17 13:22 Dose: 100 mls/hr Sodium Chloride (Nacl 0.9%) 1,000 mls @ 70 mls/hr IV .[id number] [facility] Stop: 07/03/17 01:59 Last Admin: 05/07/17 06:11 Dose: 70 mls/hr Norepinephrine Bitartrate 4 mg (/ Dextrose) 254 mls @ 30.48 mls/hr IV TITR PRN ; Protocol; 8 MCG/MIN PRN Reason: BP MAINTENANCE (PER PROTOCOL) Stop: 07/03/17 09:26 Last Titration: 05/06/17 10:00 Dose: 0 mcg/min, 0 mls/hr Ipratropium [place] (Atrovent Neb 0.5mg/2.5ml) 0.5 mg HHN Q6HRT [facility] Stop: 07/05/17 19:59 Last Admin: 05/07/17 13:03 Dose: 0.5 mg Levothyroxine Sodium (Synthroid) 0.05 mg PO QDAC [facility] Stop: 07/06/17 07:29 Last Admin: 05/07/17 09:13 Dose: Not Given Lorazepam (Ativan) 1 mg IVP Q6HR PRN; Protocol PRN Reason: restlessness and agitation Stop: 07/03/17 00:26 Last Admin: 05/07/17 01:35 Dose: 1 mg Lorazepam (Ativan) 0.5 mg PO Q4HR PRN; Protocol PRN Reason: Anxiety Stop: 07/03/17 05:50 Lorazepam (Ativan) 0.5 mg PO Q4H PRN; Protocol PRN Reason: Anxiety Stop: 07/05/17 13:53 Magnesium Hydroxide (Milk Of Magnesia) 30 ml PO HS PRN PRN Reason: Constipation Stop: 07/05/17 13:53 Methylprednisolone Sodium Succinate (Solu-Medrol) 60 mg IVP Q6HR [facility] Stop: 07/06/17 00:00 Miscellaneous (Pharmacy To Dose) 1 ea MC PRN [facility] Stop: 07/04/17 13:59 Miscellaneous (Probiotic Screen) 1 ea PRN PRN PRN Reason: PROTOCOL Stop: 07/04/17 16:18 Multivitamins/Vitamin C (Theragran) 1 tab PO DAILY [facility] Stop: 07/06/17 08:59 Last Admin: 05/07/17 09:14 Dose: Not Given Quetiapine Fumarate (Seroquel) 12.5 mg PO BID [facility] PRN Reason: Protocol Stop: 07/06/17 08:59 Tamsulosin HCl (Flomax) 0.4 mg PO DAILY [facility] Stop: 07/06/17 08:59 Last Admin: 05/07/17 09:15 Dose: Not Given Zolpidem Tartrate (Ambien) 5 mg PO HS PRN PRN Reason: Insomnia Stop: 07/05/17 20:59 General: no acute distress, well developed, well nourished HEENT: atraumatic, normocephalic, PERRLA, EOMI, moist mucous membrane Neck: supple, no thyromegaly Cardiovascular: S1S2, regular Lungs: clear to auscultation bilaterally, clear to percussion Abdomen: soft, bowel sounds, no tender, no distended, no mass, no hepatomegaly, no splenomegaly Extremities: no cyanosis, no clubbing Neurological: awake, alert Infectious Disease Assmt/Plan - Problem List Patient Problems: All Active Problems INCREASED AGITATION AND POOR ORAL INTAKE (Acute) - Assessment Assessment: 1, Pneumonia - Plan Plan: continue zosyn.
--- NOTE | 2017-05-07 15:01 | Consultation ---
DATE OF CONSULTATION: UROLOGY CONSULTATION REASON FOR CONSULTATION: Gross hematuria and trauma from Bojorquez. HISTORY OF PRESENT ILLNESS: The patient is an 87-year-old gentleman in the Psychiatric Unit here who was admitted to the ICU with sepsis, hypotension, and pneumonia. A Bojorquez was placed as a routine measure and last night, he pulled it out causing significant bleeding. I was called about it and decided to observe him without inserting another catheter. Overnight, he is stabilized and the bleeding subsided until this morning when it has all become almost clear. He remains incontinent, but there is no more blood seen. Ultrasound of the bladder done this morning shows a very small amount of postvoid residual in the bladder. The patient carries a diagnosis of BPH and has Flomax as one of his medications, but we do not have any other history since he is unable to communicate. PAST MEDICAL HISTORY: His medical history is significant for long-term smoking causing COPD. History of atrial fibrillation with rapid response on this admission, corrected with Cardizem drip. History of psychiatric disorder. PREADMISSION MEDICATIONS: Inhalers, Ativan, simethicone, pain relievers including aspirin, vitamin D3, Depakote, Aricept, Synthroid, metoprolol, vitamins, Flomax, zolpidem. ALLERGIES: CLONAZEPAM. REVIEW OF SYSTEMS: The patient is tolerating diet when fed. We have not noticed any seizures here in the unit. No chest pain or EKG changes. Breathing has improved and blood pressure has improved. He is off the Levophed drip. His cardiac arrhythmias have improved as well and he is off the Cardizem drip as well. No vomiting or diarrhea has been noted here. He remains with urinary incontinence. PHYSICAL EXAMINATION: GENERAL: He is in ICU, restrained, arousable, but noncommunicable. VITAL SIGNS: Temperature 97.8, heart rate 123, blood pressure 90/70 without any support, saturating 100% on BiPAP, and 40% FIO2. HEAD AND NECK: Normocephalic. Trachea central. Pupils equal and reactive. No jaundice. Thyroid and lymph nodes not palpable. Carotid bruit absent. CHEST: Symmetrical, occasional coarse breath sounds, occasional rales and occasional rhonchi. CARDIOVASCULAR: Heart sounds in irregular rhythm, rapid. No murmur. ABDOMEN: Soft, nontender, no organomegaly, mass, or hernia. Bladder is not distended, nontender. GENITALIA: Normal male, both testes descended. No scrotal masses. Penis unremarkable, meatus adequate. RECTAL: Deferred. EXTREMITIES: No edema or lymphadenopathy. NEUROLOGIC: Nonfocal. Moves all 4 limbs. Other functions cannot be tested. LABORATORY DATA: White count 11.2; hemoglobin 12.4, mild drop from yesterday's level of 13.1; and platelets 115. PT/INR 1.6. Sodium 137, potassium 4.1, BUN 19, creatinine 0.8. Urine test done on admission showed moderate amount of blood, 5-10 red cells, and moderate bacteria. Urine culture from the Bojorquez shows mixed urogenital yocasta. Blood cultures are negative. Ultrasound this morning, which is not very accurate reflection of postvoid residual shows a 94 mL prevoid indicating adequate emptying of the bladder. IMPRESSION: 1. Benign prostatic hypertrophy with urethral trauma from the Bojorquez. Bleeding has settled down. Continue observation. Continue Flomax. If he develops retention for any reason, we may have to do in and out catheterization, but we will try to avoid it as much as possible. 2. History of chronic obstructive pulmonary disease and recent pneumonia on chest x-ray and pleural effusion, being treated by appropriate consultants. 3. Atrial fibrillation as per cardiology. 4. History of psychiatric disorder, no major change. 5. Altered level of consciousness, stable. JOB# [id number]
--- NOTE | 2017-05-07 15:18 | Diagnostic Imaging Report ---
CT Chest without IV contrast HISTORY: Mass COMPARISON: Chest x-ray performed on 05/07/2017. Technique: Axial images were obtained from the base of the neck to the upper abdomen without IV contrast. Reconstructions were made. Total DLP to 57 CTD I expect 0.7 Findings: Evaluation of mediastinum is limited due to lack of IV contrast. Calcified right pretracheal right hilar lymph node is noted. Cardiomegaly is noted. Diffuse mitral valve calcifications are noted. Diffuse atherosclerotic vascular disease is noted. The ascending aorta is ectatic measuring up to 4.8 cm in greatest diameter. Trace pericardial fluid is noted. Evaluation of the lungs demonstrates a moderate-sized sized right effusion with fluid in the fissure. Small left effusion is noted. Bilateral groundglass infiltrates are also noted. The upper abdomen demonstrates a cirrhotic liver. Densities of the right upper quadrant are noted probably representing gallstones. Varices of the upper abdomen including the left upper quadrant are noted. There is suboptimal delineation of the left adrenal gland. A small left adrenal nodule cannot be excluded. Heavy anasarca is noted. Degenerative change of the spine are seen with multilevel marginal ossific spurs primarily on the right side. Osteopenia is noted. Multiple old left rib fractures are noted. IMPRESSION: Moderate size right effusion and small left effusion with bilateral groundglass opacities and infiltrates and bibasal consolidative changes. Findings may be secondary to CHF. Underlying pneumonia cannot be excluded. Cardiomegaly with ectatic ascending aorta measuring up to 4.8 cm. Diffuse atherosclerotic vascular disease noted including mitral valve calcifications. Markedly cirrhotic appearing liver with varices along the upper abdomen. There is suboptimal assessment of the left adrenal gland due to patient's varices. A small left adrenal nodule cannot be excluded. Densities of right upper quadrant possibly representing gallstones. Recommend short-term follow-up ultrasound Extensive anasarca. Please refer to above report for details.
[2017-05-07] MEDS: Levofloxacin 250 mg/50 mL Premix Bag IV SCH (21:06)
[2017-05-08] MEDS: Ipratropium Neb 0.5 mg/2.5 mL UD HHN SCH ×4 (00:26→19:27)
[2017-05-08] MEDS: Albuterol Nebulizer 2.5mg/3mL HHN SCH ×4 (00:26→19:27)
--- NOTE | 2017-05-08 00:27 | Progress Notes ---
DATE: 05/06/2017 SUBJECTIVE: Chart reviewed and the patient interviewed. Also discussed the patient's condition with the staff and reviewed records and labs. The patient did not sleep much last night and has been confused. The patient also has been having periods of agitation and during the night, he pulled nasal cannula. Also, his intake is poor. The patient also has been given Ativan to calm him down. Otherwise, the patient is still confused, and he was not able to answer much of my questions. ASSESSMENT: The patient has been confused and seems to be psychotic. TREATMENT PLAN: Continue to monitor his behavior and his condition. Also, continue to work on his confusion and also his irritability, and we will continue to follow up. [facility]# [id number]
--- NOTE | 2017-05-08 00:48 | Progress Notes ---
DATE: 05/07/2017 SUBJECTIVE: Chart reviewed and the patient interviewed. Also discussed the patient's condition with the staff and reviewed records and labs. The patient has been agitated during the night and he pulled his catheter that caused bleeding of the penile area. The patient currently had mittens placed. He also is still confused and he is still having difficulty following any of staff directions. ASSESSMENT: The patient is a confused and agitated. TREATMENT PLAN: We will restart the patient on Seroquel, but in the small dose considering his current medical condition. We will give him 12.5 mg twice a day. Also, continue Ativan on a p.r.n. basis. Also, we will continue to work on behavioral implications while Dr. [place] is trying to stabilize his medical condition. JOB# [id number]
[2017-05-08 06:33] LABS: ANION GAP 10.8 (7.0-16.0); BUN - UREA NITROGEN 23 mg/dL (7-25); CALCIUM SERUM 8.4 mg/dL (8.6-10.3); CARBON DIOXIDE 22.4 mEq/L (21.0-31.0); CHLORIDE 108 mEq/L (98-107); CREATININE - SERUM 0.8 mg/dL (0.7-1.3); GLUCOSE 109 mg/dL (70-105); POTASSIUM SERUM 4.2 mEq/L (3.5-5.1); SODIUM SERUM 137 mEq/L (136-145)
[2017-05-08] MEDS: Levothyroxine 0.05 Mg Tab PO SCH (08:11)
[2017-05-08] MEDS: Multivitamin Tab PO SCH (08:11)
--- NOTE | 2017-05-08 09:05 | General Progress Note ---
Subjective - Review of Systems Events since last encounter: in no distress doing better today Objective - Results Result Diagrams: 05/07/17 06:20 05/08/17 06:05 Recent Labs: Laboratory Last Values WBC 11.2 Th/cmm (4.8-10.8) H D 05/07/17 06:20 RBC 3.77 Mil/cmm (3.80-5.80) L 05/07/17 06:20 Hgb 12.4 gm/dL (12-16) 05/07/17 06:20 Hct 37.0 % (41.0-60) L 05/07/17 06:20 MCV 98.2 fl (80-99) 05/07/17 06:20 MCH 32.8 pg (27.0-31.0) H 05/07/17 06:20 MCHC Differential 33.4 pg (28.0-36.0) 05/07/17 06:20 RDW 15.6 % (11.5-20.0) 05/07/17 06:20 Plt Count 115 Th/cmm (150-400) L 05/07/17 06:20 MPV 10.1 fl 05/07/17 06:20 Band Neutrophils % 3 % (0-10) 05/04/17 04:45 Neutrophils (Manual) 48 % (40-80) 05/04/17 04:45 Lymphocytes 18 % (20-50) L 05/04/17 04:45 Monocytes 26 % (2-10) H 05/04/17 04:45 Eosinophils 2 % (0-5) 05/04/17 04:45 Atypical Lymphocytes 3 % 05/04/17 04:45 Hypochromia 1+ 05/04/17 04:45 Platelet Estimate DECREASED PLATELETS (NORMAL) 05/04/17 04:45 Platelet Morphology GIANT PLATELETS SEEN (NORMAL) 05/03/17 23:55 Anisocytosis 1+ 05/04/17 04:45 Microcytosis 1+ 05/04/17 04:45 Macrocytosis 1+ 05/04/17 04:45 RBC Morph Micro Appear NORMAL (NORMAL) 05/03/17 23:55 PT 17.8 SECONDS (9.5-11.5) H 05/07/17 08:00 INR 1.66 (0.5-1.4) H 05/07/17 08:00 PTT (Actin FS) 26.6 SECONDS (26.0-38.0) 05/07/17 08:00 Specimen Source Arterial 05/07/17 10:00 Sample Site RB 05/07/17 10:00 pH 7.46 (7.35-7.45) H 05/07/17 10:00 pCO2 34.0 mmHg (35.0-45.0) L 05/07/17 10:00 pO2 110.0 mmHg (80.0-100.0) H 05/07/17 10:00 HCO3 25.6 mEq/L (20.0-26.0) 05/07/17 10:00 Base Excess 0.8 mEq/L (-3.0-3.0) 05/07/17 10:00 O2 Saturation 99.0 % (92.0-100.0) 05/07/17 10:00 Vent Rate 14 05/07/17 10:00 Inspired O2 40 05/07/17 10:00 Critical Value PW 05/07/17 10:00 Sodium 137 mEq/L (136-145) 05/08/17 06:05 Potassium 4.2 mEq/L (3.5-5.1) 05/08/17 06:05 Chloride 108 mEq/L (98-107) H 05/08/17 06:05 Carbon Dioxide 22.4 mEq/L (21.0-31.0) 05/08/17 06:05 Anion Gap 10.8 (7.0-16.0) 05/08/17 06:05 BUN 23 mg/dL (7-25) 05/08/17 06:05 Creatinine 0.8 mg/dL (0.7-1.3) 05/08/17 06:05 Est GFR ( Amer) TNP 05/08/17 06:05 Est GFR (Non-Af Amer) TNP 05/08/17 06:05 BUN/Creatinine Ratio 28.8 05/08/17 06:05 Glucose 109 mg/dL (70-105) H 05/08/17 06:05 Whole Bld Lactic Acid 1.82 mmol/L (0.60-1.99) 05/03/17 23:55 Calcium 8.4 mg/dL (8.6-10.3) L 05/08/17 06:05 Total Bilirubin 1.5 mg/dL (0.3-1.0) H 05/04/17 04:45 AST 23 U/L (13-39) 05/04/17 04:45 ALT 11 U/L (7-52) 05/04/17 04:45 Alkaline Phosphatase 47 U/L (34-104) 05/04/17 04:45 B-Natriuretic Peptide 543.0 pg/mL (5.0-100.0) H 05/07/17 06:20 Total Protein 5.2 gm/dL (6.0-8.3) L 05/04/17 04:45 Albumin 2.6 gm/dL (4.2-5.5) L 05/04/17 04:45 Globulin 2.6 gm/dL 05/04/17 04:45 Albumin/Globulin Ratio 1.0 (1.0-1.8) 05/04/17 04:45 Urine Source [place] 05/04/17 06:45 Urine Color YELLOW 05/04/17 06:45 Urine Clarity HAZY (CLEAR) 05/04/17 06:45 Urine pH 8.0 (4.6 - 8.0) 05/04/17 06:45 Ur Specific [place] 1.015 (1.005-1.030) 05/04/17 06:45 Urine Protein TRACE mg/dL (NEGATIVE) 05/04/17 06:45 Urine Glucose (UA) NEGATIVE mg/dL (NEGATIVE) 05/04/17 06:45 Urine Ketones NEGATIVE mg/dL (NEGATIVE) 05/04/17 06:45 Urine Blood MODERATE (NEGATIVE) H 05/04/17 06:45 Urine Nitrate NEGATIVE (NEGATIVE) 05/04/17 06:45 Urine Bilirubin SMALL (NEGATIVE) H 05/04/17 06:45 Urine Urobilinogen 2.0 E.U./dL (0.2 - 1.0) 05/04/17 06:45 Ur Leukocyte Esterase NEGATIVE (NEGATIVE) 05/04/17 06:45 Urine RBC 5-10 /hpf (0-5) H 05/04/17 06:45 Urine WBC 2-5 /hpf (0-5) H 05/04/17 06:45 Ur Epithelial Cells MODERATE /lpf (FEW) 05/04/17 06:45 Amorphous Sediment FEW URATES (NONE SEEN) 05/04/17 06:45 Urine Bacteria MODERATE /hpf (NONE SEEN) H 05/04/17 06:45 - Physical Exam Vitals and I&O: Vital Signs Temp 97.2 F 05/08/17 04:00 Pulse 120 05/08/17 08:12 Resp 16 05/08/17 07:00 BP 129/45 05/08/17 07:00 Pulse Ox 100 05/08/17 07:00 Intake & Output 05/07/17 05/08/17 05/08/17 18:59 06:59 18:59 Intake Total 150 1150 Balance 150 1150 Weight (lbs) 55.338 kg Intake: Intake, IV Amount 50 1150 Levofloxacin 250mg/50mL 50 250 mg In 50 ml @ 50 mls/ hr IV Q24HR [facility] Rx#: [id number] Piperacillin Sodium/ 50 100 Tazobact 3.375 gm In Sodium Chloride 0.9% 50 ml @ 100 mls/hr IV Q8HR [facility] Rx#:[id number] Sodium Chloride 0.9% 1, 1000 000 ml @ 70 mls/hr IV . [id number] [facility] Rx#:[id number] Oral 100 Other: # Voids 2 # Bowel Movements 0 Active Medications: Current Medications Acetaminophen (Tylenol) 650 mg PO Q4H PRN PRN Reason: Pain (Mild) Stop: 07/03/17 16:21 Last Admin: 05/04/17 16:46 Dose: 650 mg Acetaminophen (Tylenol) 650 mg PO Q4H PRN PRN Reason: Pain or Fever >101 Al Hydrox/Mg Hydrox/Simethicone (Maalox) 30 ml PO Q4H PRN PRN Reason: GI DISTRESS Stop: 07/05/17 13:53 Albuterol Sulfate (Albuterol 2.5mg/3ml Neb Ud) 2.5 mg HHN Q6HRT [facility] Stop: 07/05/17 19:59 Last Admin: 05/08/17 06:56 Dose: 2.5 mg Albuterol/Ipratropium (Duoneb Neb) 3 ml HHN Q2H PRN PRN Reason: Wheezing Stop: 07/05/17 19:33 Last Admin: 05/06/17 23:27 Dose: 3 ml Amiodarone HCl (Cordarone) 200 mg PO BID [facility] Stop: 07/07/17 08:59 Last Admin: 05/08/17 08:12 Dose: 200 mg Aspirin (Ecotrin) 81 mg PO DAILY [facility] Stop: 07/06/17 08:59 Last Admin: 05/08/17 08:13 Dose: 81 mg Cholecalciferol (Vitamin D3) 5,000 iu PO DAILY [facility] Stop: 07/06/17 08:59 Last Admin: 05/08/17 08:13 Dose: 5,000 iu Diltiazem HCl (Cardizem) 5 mg IVP Q6H PRN PRN Reason: HR > 120 Stop: 07/03/17 14:59 Last Admin: 05/07/17 23:11 Dose: 5 mg Divalproex Sodium (Depakote Sprinkle) 250 mg PO BID [facility] PRN Reason: Protocol Stop: 07/05/17 16:59 Last Admin: 05/08/17 08:13 Dose: 250 mg Donepezil HCl (Aricept) 10 mg PO DAILY [facility] Stop: 07/06/17 08:59 Last Admin: 05/08/17 08:13 Dose: 10 mg Levofloxacin (Levaquin Pb) 250 mg in 50 mls @ 50 mls/hr IV Q24HR [facility] Stop: 07/03/17 20:59 Last Infusion: 05/07/17 23:46 Dose: Infused Piperacillin Sod/Tazobactam (Sod 3.375 gm/ Sodium Chloride) 50 mls @ 100 mls/ hr IV Q8HR [facility] Stop: 07/03/17 04:59 Last Infusion: 05/08/17 05:19 Dose: Infused Sodium Chloride (Nacl 0.9%) 1,000 mls @ 70 mls/hr IV .[id number] [facility] Stop: 07/03/17 01:59 Last Admin: 05/07/17 20:56 Dose: 70 mls/hr Norepinephrine Bitartrate 4 mg (/ Dextrose) 254 mls @ 30.48 mls/hr IV TITR PRN ; Protocol; 8 MCG/MIN PRN Reason: BP MAINTENANCE (PER PROTOCOL) Stop: 07/03/17 09:26 Last Titration: 05/06/17 10:00 Dose: 0 mcg/min, 0 mls/hr Ipratropium [place] (Atrovent Neb 0.5mg/2.5ml) 0.5 mg HHN Q6HRT [facility] Stop: 07/05/17 19:59 Last Admin: 05/08/17 06:56 Dose: 0.5 mg Levothyroxine Sodium (Synthroid) 0.05 mg PO QDAC [facility] Stop: 07/06/17 07:29 Last Admin: 05/08/17 08:11 Dose: 0.05 mg Lorazepam (Ativan) 1 mg IVP Q6HR PRN; Protocol PRN Reason: restlessness and agitation Stop: 07/03/17 00:26 Last Admin: 05/07/17 01:35 Dose: 1 mg Lorazepam (Ativan) 0.5 mg PO Q4HR PRN; Protocol PRN Reason: Anxiety Stop: 07/03/17 05:50 Lorazepam (Ativan) 0.5 mg PO Q4H PRN; Protocol PRN Reason: Anxiety Stop: 07/05/17 13:53 Magnesium Hydroxide (Milk Of Magnesia) 30 ml PO HS PRN PRN Reason: Constipation Stop: 07/05/17 13:53 Methylprednisolone Sodium Succinate (Solu-Medrol) 60 mg IVP Q6HR [facility] Stop: 07/06/17 00:00 Last Admin: 05/08/17 06:40 Dose: 60 mg Miscellaneous (Pharmacy To Dose) 1 ea MC PRN [facility] Stop: 07/04/17 13:59 Miscellaneous (Probiotic Screen) 1 ea MC PRN PRN PRN Reason: PROTOCOL Stop: 07/04/17 16:18 Multivitamins/Vitamin C (Theragran) 1 tab PO DAILY [facility] Stop: 07/06/17 08:59 Last Admin: 05/08/17 08:11 Dose: 1 tab Quetiapine Fumarate (Seroquel) 12.5 mg PO BID [facility] PRN Reason: Protocol Stop: 07/06/17 08:59 Last Admin: 05/08/17 08:12 Dose: 12.5 mg Tamsulosin HCl (Flomax) 0.4 mg PO DAILY [facility] Stop: 07/06/17 08:59 Last Admin: 05/08/17 08:12 Dose: 0.4 mg Zolpidem Tartrate (Ambien) 5 mg PO HS PRN PRN Reason: Insomnia Stop: 07/05/17 20:59 General: No acute distress HEENT: Atraumatic Neck: Supple Cardiovascular: Regular rate, Normal S1, Normal S2 Abdomen: Bowel sounds - Procedures Procedures: Procedures Procedure Code Date ASSISTANCE WITH RESPIRATORY VENTILATION, <24 HRS, CPAP [id number] 05/03/17 POS AIRWAY PRESSURE CPAP 41906 05/03/17 Assessment/Plan - Problem List Patient Problems: All Active Problems INCREASED AGITATION AND POOR ORAL INTAKE (Acute) - Assessment Assessment: 1. Pneumonia. 2. COPD. 3. Psychosis. - Plan Plan: continue icu monitoring continue iv antibiotics as per id levophed titrate as per protocol cpm
[2017-05-08] MEDS: Levofloxacin 250 mg/50 mL Premix Bag IV SCH (21:37)
[2017-05-08] MEDS: Diltiazem 5 mg/mL 5mL Vial IVP PRN (21:38)
[2017-05-09] MEDS: Albuterol Nebulizer 2.5mg/3mL HHN SCH ×4 (00:39→19:18)
[2017-05-09] MEDS: Ipratropium Neb 0.5 mg/2.5 mL UD HHN SCH ×4 (00:39→19:21)
--- NOTE | 2017-05-09 05:47 | Progress Notes ---
DATE: 05/08/2017 SUBJECTIVE: Chart reviewed and the patient interviewed. Also discussed the patient's condition with the staff and reviewed records and labs. The patient continued to be anxious and he still has episodes of irritability and agitation. The patient also is still confused and he is trying to take off his clothes. The patient also is still unable to follow staff directions because of his confusion and agitation. Otherwise, the patient is compliant with taking his medications. ASSESSMENT: The patient is still confused and agitated. TREATMENT PLAN: Continue monitoring his behavior and his medications and continue to work with Dr. Madrid in regard to his medical condition and stabilizing his breathing. JOB# [id number]
[2017-05-09] MEDS: Sodium Chloride 0.9% 1,000 ML IV SCH ×2 (07:02→20:57)
[2017-05-09] MEDS: Multivitamin Tab PO SCH (09:02)
--- NOTE | 2017-05-09 12:19 | Infectious Disease Prog Note ---
Infectious Disease Subjective - Review of Systems Service Date: 05/09/17 Subjective: Feeling better, there is no fever. Infectious Disease Objective - Results Result Diagrams: 05/07/17 06:20 05/08/17 06:05 Recent Labs: Laboratory Last Values WBC 11.2 Th/cmm (4.8-10.8) H D 05/07/17 06:20 RBC 3.77 Mil/cmm (3.80-5.80) L 05/07/17 06:20 Hgb 12.4 gm/dL (12-16) 05/07/17 06:20 Hct 37.0 % (41.0-60) L 05/07/17 06:20 MCV 98.2 fl (80-99) 05/07/17 06:20 MCH 32.8 pg (27.0-31.0) H 05/07/17 06:20 MCHC Differential 33.4 pg (28.0-36.0) 05/07/17 06:20 RDW 15.6 % (11.5-20.0) 05/07/17 06:20 Plt Count 115 Th/cmm (150-400) L 05/07/17 06:20 MPV 10.1 fl 05/07/17 06:20 Band Neutrophils % 3 % (0-10) 05/04/17 04:45 Neutrophils (Manual) 48 % (40-80) 05/04/17 04:45 Lymphocytes 18 % (20-50) L 05/04/17 04:45 Monocytes 26 % (2-10) H 05/04/17 04:45 Eosinophils 2 % (0-5) 05/04/17 04:45 Atypical Lymphocytes 3 % 05/04/17 04:45 Hypochromia 1+ 05/04/17 04:45 Platelet Estimate DECREASED PLATELETS (NORMAL) 05/04/17 04:45 Platelet Morphology GIANT PLATELETS SEEN (NORMAL) 05/03/17 23:55 Anisocytosis 1+ 05/04/17 04:45 Microcytosis 1+ 05/04/17 04:45 Macrocytosis 1+ 05/04/17 04:45 RBC Morph Micro Appear NORMAL (NORMAL) 05/03/17 23:55 PT 17.8 SECONDS (9.5-11.5) H 05/07/17 08:00 INR 1.66 (0.5-1.4) H 05/07/17 08:00 PTT (Actin FS) 26.6 SECONDS (26.0-38.0) 05/07/17 08:00 Specimen Source Arterial 05/07/17 10:00 Sample Site RB 05/07/17 10:00 pH 7.46 (7.35-7.45) H 05/07/17 10:00 pCO2 34.0 mmHg (35.0-45.0) L 05/07/17 10:00 pO2 110.0 mmHg (80.0-100.0) H 05/07/17 10:00 HCO3 25.6 mEq/L (20.0-26.0) 05/07/17 10:00 Base Excess 0.8 mEq/L (-3.0-3.0) 05/07/17 10:00 O2 Saturation 99.0 % (92.0-100.0) 05/07/17 10:00 Vent Rate 14 05/07/17 10:00 Inspired O2 40 05/07/17 10:00 Critical Value PW 05/07/17 10:00 Sodium 137 mEq/L (136-145) 05/08/17 06:05 Potassium 4.2 mEq/L (3.5-5.1) 05/08/17 06:05 Chloride 108 mEq/L (98-107) H 05/08/17 06:05 Carbon Dioxide 22.4 mEq/L (21.0-31.0) 05/08/17 06:05 Anion Gap 10.8 (7.0-16.0) 05/08/17 06:05 BUN 23 mg/dL (7-25) 05/08/17 06:05 Creatinine 0.8 mg/dL (0.7-1.3) 05/08/17 06:05 Est GFR ( Amer) TNP 05/08/17 06:05 Est GFR (Non-Af Amer) TNP 05/08/17 06:05 BUN/Creatinine Ratio 28.8 05/08/17 06:05 Glucose 109 mg/dL (70-105) H 05/08/17 06:05 Whole Bld Lactic Acid 1.82 mmol/L (0.60-1.99) 05/03/17 23:55 Calcium 8.4 mg/dL (8.6-10.3) L 05/08/17 06:05 Total Bilirubin 1.5 mg/dL (0.3-1.0) H 05/04/17 04:45 AST 23 U/L (13-39) 05/04/17 04:45 ALT 11 U/L (7-52) 05/04/17 04:45 Alkaline Phosphatase 47 U/L (34-104) 05/04/17 04:45 B-Natriuretic Peptide 543.0 pg/mL (5.0-100.0) H 05/07/17 06:20 Total Protein 5.2 gm/dL (6.0-8.3) L 05/04/17 04:45 Albumin 2.6 gm/dL (4.2-5.5) L 05/04/17 04:45 Globulin 2.6 gm/dL 05/04/17 04:45 Albumin/Globulin Ratio 1.0 (1.0-1.8) 05/04/17 04:45 Urine Source [place] 05/04/17 06:45 Urine Color YELLOW 05/04/17 06:45 Urine Clarity HAZY (CLEAR) 05/04/17 06:45 Urine pH 8.0 (4.6 - 8.0) 05/04/17 06:45 Ur Specific [place] 1.015 (1.005-1.030) 05/04/17 06:45 Urine Protein TRACE mg/dL (NEGATIVE) 05/04/17 06:45 Urine Glucose (UA) NEGATIVE mg/dL (NEGATIVE) 05/04/17 06:45 Urine Ketones NEGATIVE mg/dL (NEGATIVE) 05/04/17 06:45 Urine Blood MODERATE (NEGATIVE) H 05/04/17 06:45 Urine Nitrate NEGATIVE (NEGATIVE) 05/04/17 06:45 Urine Bilirubin SMALL (NEGATIVE) H 05/04/17 06:45 Urine Urobilinogen 2.0 E.U./dL (0.2 - 1.0) 05/04/17 06:45 Ur Leukocyte Esterase NEGATIVE (NEGATIVE) 05/04/17 06:45 Urine RBC 5-10 /hpf (0-5) H 05/04/17 06:45 Urine WBC 2-5 /hpf (0-5) H 05/04/17 06:45 Ur Epithelial Cells MODERATE /lpf (FEW) 05/04/17 06:45 Amorphous Sediment FEW URATES (NONE SEEN) 05/04/17 06:45 Urine Bacteria MODERATE /hpf (NONE SEEN) H 05/04/17 06:45 Valproic Acid 37.6 ug/mL (50.0-100.0) L 05/09/17 09:00 - Physical Exam Vitals and I&O: Vital Signs Temp 97.8 F 05/09/17 12:00 Pulse 118 05/09/17 12:00 Resp 11 05/09/17 12:00 BP 120/79 05/09/17 12:00 Pulse Ox 99 05/09/17 12:00 Intake & Output 05/08/17 05/09/17 05/09/17 18:59 06:59 18:59 Intake Total 1230 100 Output Total 300 100 Balance 930 0 Weight (lbs) 55.338 kg 70.76 kg Intake: Intake, IV Amount 1050 100 Levofloxacin 250mg/50mL 50 250 mg In 50 ml @ 50 mls/ hr IV Q24HR [facility] Rx#: [id number] Piperacillin Sodium/ 50 50 Tazobact 3.375 gm In Sodium Chloride 0.9% 50 ml @ 100 mls/hr IV Q8HR [facility] Rx#:[id number] Sodium Chloride 0.9% 1, 1000 000 ml @ 70 mls/hr IV . [id number] [facility] Rx#:[id number] Oral 180 Output: Urine 300 100 Stool 0 Other: # Voids 5 1 Active Medications: Current Medications Acetaminophen (Tylenol) 650 mg PO Q4H PRN PRN Reason: Pain (Mild) Stop: 07/03/17 16:21 Last Admin: 05/04/17 16:46 Dose: 650 mg Acetaminophen (Tylenol) 650 mg PO Q4H PRN PRN Reason: Pain or Fever >101 Al Hydrox/Mg Hydrox/Simethicone (Maalox) 30 ml PO Q4H PRN PRN Reason: GI DISTRESS Stop: 07/05/17 13:53 Albuterol Sulfate (Albuterol 2.5mg/3ml Neb Ud) 2.5 mg HHN Q6HRT [facility] Stop: 07/05/17 19:59 Last Admin: 05/09/17 07:05 Dose: 2.5 mg Albuterol/Ipratropium (Duoneb Neb) 3 ml HHN Q2H PRN PRN Reason: Wheezing Stop: 07/05/17 19:33 Last Admin: 05/06/17 23:27 Dose: 3 ml Amiodarone HCl (Cordarone) 200 mg PO BID [facility] Stop: 07/07/17 08:59 Last Admin: 05/09/17 09:01 Dose: 200 mg Aspirin (Ecotrin) 81 mg PO DAILY [facility] Stop: 07/06/17 08:59 Last Admin: 05/09/17 09:02 Dose: 81 mg Cholecalciferol (Vitamin D3) 5,000 iu PO DAILY [facility] Stop: 07/06/17 08:59 Last Admin: 05/09/17 09:03 Dose: 5,000 iu Diltiazem HCl (Cardizem) 5 mg IVP Q6H PRN PRN Reason: HR > 120 Stop: 07/03/17 14:59 Last Admin: 05/08/17 21:38 Dose: 5 mg Divalproex Sodium (Depakote Sprinkle) 250 mg PO BID [facility] PRN Reason: Protocol Stop: 07/05/17 16:59 Last Admin: 05/08/17 16:45 Dose: 250 mg Donepezil HCl (Aricept) 10 mg PO DAILY [facility] Stop: 07/06/17 08:59 Last Admin: 05/09/17 09:02 Dose: 10 mg Furosemide (Lasix) 40 mg IVP DAILY [facility] Stop: 07/07/17 12:44 Last Admin: 05/09/17 09:00 Dose: Not Given Levofloxacin (Levaquin Pb) 250 mg in 50 mls @ 50 mls/hr IV Q24HR [facility] Stop: 07/03/17 20:59 Last Infusion: 05/09/17 01:25 Dose: Infused Piperacillin Sod/Tazobactam (Sod 3.375 gm/ Sodium Chloride) 50 mls @ 100 mls/ hr IV Q8HR [facility] Stop: 07/03/17 04:59 Last Admin: 05/09/17 05:41 Dose: 100 mls/hr Sodium Chloride (Nacl 0.9%) 1,000 mls @ 70 mls/hr IV .[id number] [facility] Stop: 07/03/17 01:59 Last Admin: 05/09/17 07:02 Dose: 70 mls/hr Norepinephrine Bitartrate 4 mg (/ Dextrose) 254 mls @ 30.48 mls/hr IV TITR PRN ; Protocol; 8 MCG/MIN PRN Reason: BP MAINTENANCE (PER PROTOCOL) Stop: 07/03/17 09:26 Last Titration: 05/06/17 10:00 Dose: 0 mcg/min, 0 mls/hr Ipratropium [place] (Atrovent Neb 0.5mg/2.5ml) 0.5 mg HHN Q6HRT [facility] Stop: 07/05/17 19:59 Last Admin: 05/09/17 07:05 Dose: 0.5 mg Levothyroxine Sodium (Synthroid) 0.05 mg PO QDAC [facility] Stop: 07/06/17 07:29 Last Admin: 05/08/17 08:11 Dose: 0.05 mg Lorazepam (Ativan) 1 mg IVP Q6HR PRN; Protocol PRN Reason: restlessness and agitation Stop: 07/03/17 00:26 Last Admin: 05/07/17 01:35 Dose: 1 mg Lorazepam (Ativan) 0.5 mg PO Q4HR PRN; Protocol PRN Reason: Anxiety Stop: 07/03/17 05:50 Lorazepam (Ativan) 0.5 mg PO Q4H PRN; Protocol PRN Reason: Anxiety Stop: 07/05/17 13:53 Magnesium Hydroxide (Milk Of Magnesia) 30 ml PO HS PRN PRN Reason: Constipation Stop: 07/05/17 13:53 Methylprednisolone Sodium Succinate (Solu-Medrol) 60 mg IVP Q6HR [facility] Stop: 07/06/17 00:00 Last Admin: 05/09/17 05:42 Dose: 60 mg Miscellaneous (Probiotic Screen) 1 ea MC PRN PRN PRN Reason: PROTOCOL Stop: 07/04/17 16:18 Multivitamins/Vitamin C (Theragran) 1 tab PO DAILY [facility] Stop: 07/06/17 08:59 Last Admin: 05/09/17 09:02 Dose: 1 tab Quetiapine Fumarate (Seroquel) 25 mg PO BID [facility] PRN Reason: Protocol Stop: 07/08/17 08:07 Tamsulosin HCl (Flomax) 0.4 mg PO DAILY [facility] Stop: 07/06/17 08:59 Last Admin: 05/09/17 09:02 Dose: 0.4 mg Zolpidem Tartrate (Ambien) 5 mg PO HS PRN PRN Reason: Insomnia Stop: 07/05/17 20:59 General: no acute distress, well developed, well nourished HEENT: atraumatic, normocephalic, PERRLA, EOMI, moist mucous membrane Neck: supple, no thyromegaly Cardiovascular: S1S2, regular Lungs: clear to auscultation bilaterally, clear to percussion Abdomen: soft, no tender Extremities: no cyanosis, no clubbing, no edema Neurological: awake, alert, oriented - Procedures Procedures: Procedures Procedure Code Date ASSISTANCE WITH RESPIRATORY VENTILATION, <24 HRS, CPAP [id number] 05/03/17 POS AIRWAY PRESSURE CPAP 77251 05/03/17 Infectious Disease Assmt/Plan - Problem List Patient Problems: All Active Problems INCREASED AGITATION AND POOR ORAL INTAKE (Acute) - Assessment Assessment: 1, Pneumonia - Plan Plan: continue zosyn. Nutritional Asmnt/Malnutr-PDOC - Dietary Evaluation Malnutrition Findings (Please click <Entered> for more info): Nutritional Asmnt/Malnutrition Start: 05/08/17 15: 11 Text: Status: Complete Freq: Document 05/08/17 15:12 LCHENG (Rec: 05/08/17 15:24 [email or web address]) Nutritional Asmnt/Malnutrition Patient General Information Nutritional Screening Moderate Risk Diagnosis PNA, pleural effusion & sepsis Pertinent Medical Hx/Surgical Hx HTN, CAD, hypothyroid, arthritis, dementia, BPH Subjective Information Pt seen sleeping in bed at time of visit. Per notes, PO intake 30-50%. Spoke with RN, pt consumed about 50% of breakfast this morning. Per nurse notes ., pt was tolerating diet well with assistance. Pt remain on Bipap . Current Diet Order/ Nutrition Support pureed Pertinent Medications vitamin d3, lasix, levaquin, synthroid, theragran, piperacillin, seroquel, Nacl 0 .9% Pertinent Labs 05/08 Na 137, K 4.2, Cl 108, BUN 23, Cr 0.8, Glucose 109, Ca 8.4 Nutritional Hx/Data Height 1.63 m Height (Calculated Centimeters) 162.6 Current Weight (lbs) 55.338 kg Weight (Calculated Kilograms) 55.3 Weight (Calculated Grams) 71023.3 [place] Body Weight 130 % [place] Body Weight 101 Body Mass Index (BMI) 20.9 Weight Status Approriate GI Symptoms GI Symptoms None Difficult in: None Skin Integrity/Comment: bruise redded to left arm, skin tear to right arm Estimated Nutritional Goals BEE in Kcals: Using Current wt Calories/Kcals/Kg 30-35 Kcals Calculated 5357-6160 Protein: Using Current wt Protein g/k.2-1.4 Protein Calculated 66-77 Fluid: ml 1650-1925ml (1ml/kcal) Nutritional Problem 1. Problem Problem inadequate food intake Etiology poor appetite Signs/Symptoms: PO intake 30-50% Malnutrition Alert Protein-Calorie Malnutrition N/A Is there a minimum of two criteria No selected? Query Text:Check all the applicable criteria. A minimum of two criteria are recommended for diagnosis of either severe or non-severe malnutrition. Intervention/Recommendation Comments 1. Recommend Boost Plus BID to increase nutrition intake. RN made aware. 2. Monitor PO intake, wt, labs and skin integrity 3. F/U as moderate risk in 3-5 days, 05/11-05/13 Expected Outcomes/Goals Expected Outcomes/Goals 1. PO intake to meet at least 75% of nutritional needs. 2. Wt stability, skin to remain intact, labs to approach WNL.
[2017-05-09] MEDS: Levothyroxine 0.05 Mg Tab PO SCH (13:07)
--- NOTE | 2017-05-09 16:57 | Progress Notes ---
DATE: 05/08/2017 UROLOGY PROGRESS NOTE SUBJECTIVE: The patient remains in the ICU in atrial fibrillation with poor intake. Otherwise, stable. Mental status has not changed significantly and urine flow is satisfactory without bleeding or pain. PHYSICAL EXAMINATION: VITAL SIGNS: Temperature 97.6; heart rate 125, irregular rhythm; blood pressure 126/58. ABDOMEN: Soft, nondistended and nontender. Bladder not palpable. GENITALIA: Normal. No masses or infection. EXTREMITIES: No edema. LUNGS: No rales or rhonchi. LABORATORY DATA: No CBC today and electrolytes normal, chloride 108, BUN 23, creatinine 0.8. IMPRESSION: 1. History of hematuria, trauma from [place] seems to be subsiding. 2. History of benign prostatic hypertrophy, stable. 3. History of chronic obstructive pulmonary disease, saturating well. 4. History of atrial fibrillation, not very well controlled. 5. Altered level of consciousness and psychiatric history, no major change. JOB# [id number]
[2017-05-09] MEDS: Levofloxacin 250 mg/50 mL Premix Bag IV SCH (20:44)
--- NOTE | 2017-05-09 21:31 | Internal Medicine Prog Note ---
Internal Medicine Subjective - Subjective Service Date: 05/09/17 Patient seen and examined:: with staff Patient is:: awake Per staff patient has:: tolerating meds Internal Medicine Objective - Results Result Diagrams: 05/07/17 06:20 05/08/17 06:05 Recent Labs: Laboratory Last Values WBC 11.2 Th/cmm (4.8-10.8) H D 05/07/17 06:20 RBC 3.77 Mil/cmm (3.80-5.80) L 05/07/17 06:20 Hgb 12.4 gm/dL (12-16) 05/07/17 06:20 Hct 37.0 % (41.0-60) L 05/07/17 06:20 MCV 98.2 fl (80-99) 05/07/17 06:20 MCH 32.8 pg (27.0-31.0) H 05/07/17 06:20 MCHC Differential 33.4 pg (28.0-36.0) 05/07/17 06:20 RDW 15.6 % (11.5-20.0) 05/07/17 06:20 Plt Count 115 Th/cmm (150-400) L 05/07/17 06:20 MPV 10.1 fl 05/07/17 06:20 Band Neutrophils % 3 % (0-10) 05/04/17 04:45 Neutrophils (Manual) 48 % (40-80) 05/04/17 04:45 Lymphocytes 18 % (20-50) L 05/04/17 04:45 Monocytes 26 % (2-10) H 05/04/17 04:45 Eosinophils 2 % (0-5) 05/04/17 04:45 Atypical Lymphocytes 3 % 05/04/17 04:45 Hypochromia 1+ 05/04/17 04:45 Platelet Estimate DECREASED PLATELETS (NORMAL) 05/04/17 04:45 Platelet Morphology GIANT PLATELETS SEEN (NORMAL) 05/03/17 23:55 Anisocytosis 1+ 05/04/17 04:45 Microcytosis 1+ 05/04/17 04:45 Macrocytosis 1+ 05/04/17 04:45 RBC Morph Micro Appear NORMAL (NORMAL) 05/03/17 23:55 PT 17.8 SECONDS (9.5-11.5) H 05/07/17 08:00 INR 1.66 (0.5-1.4) H 05/07/17 08:00 PTT (Actin FS) 26.6 SECONDS (26.0-38.0) 05/07/17 08:00 Specimen Source Arterial 05/07/17 10:00 Sample Site RB 05/07/17 10:00 pH 7.46 (7.35-7.45) H 05/07/17 10:00 pCO2 34.0 mmHg (35.0-45.0) L 05/07/17 10:00 pO2 110.0 mmHg (80.0-100.0) H 05/07/17 10:00 HCO3 25.6 mEq/L (20.0-26.0) 05/07/17 10:00 Base Excess 0.8 mEq/L (-3.0-3.0) 05/07/17 10:00 O2 Saturation 99.0 % (92.0-100.0) 05/07/17 10:00 Vent Rate 14 05/07/17 10:00 Inspired O2 40 05/07/17 10:00 Critical Value PW 05/07/17 10:00 Sodium 137 mEq/L (136-145) 05/08/17 06:05 Potassium 4.2 mEq/L (3.5-5.1) 05/08/17 06:05 Chloride 108 mEq/L (98-107) H 05/08/17 06:05 Carbon Dioxide 22.4 mEq/L (21.0-31.0) 05/08/17 06:05 Anion Gap 10.8 (7.0-16.0) 05/08/17 06:05 BUN 23 mg/dL (7-25) 05/08/17 06:05 Creatinine 0.8 mg/dL (0.7-1.3) 05/08/17 06:05 Est GFR ( Amer) TNP 05/08/17 06:05 Est GFR (Non-Af Amer) TNP 05/08/17 06:05 BUN/Creatinine Ratio 28.8 05/08/17 06:05 Glucose 109 mg/dL (70-105) H 05/08/17 06:05 Whole Bld Lactic Acid 1.82 mmol/L (0.60-1.99) 05/03/17 23:55 Calcium 8.4 mg/dL (8.6-10.3) L 05/08/17 06:05 Total Bilirubin 1.5 mg/dL (0.3-1.0) H 05/04/17 04:45 AST 23 U/L (13-39) 05/04/17 04:45 ALT 11 U/L (7-52) 05/04/17 04:45 Alkaline Phosphatase 47 U/L (34-104) 05/04/17 04:45 B-Natriuretic Peptide 543.0 pg/mL (5.0-100.0) H 05/07/17 06:20 Total Protein 5.2 gm/dL (6.0-8.3) L 05/04/17 04:45 Albumin 2.6 gm/dL (4.2-5.5) L 05/04/17 04:45 Globulin 2.6 gm/dL 05/04/17 04:45 Albumin/Globulin Ratio 1.0 (1.0-1.8) 05/04/17 04:45 Urine Source [place] 05/04/17 06:45 Urine Color YELLOW 05/04/17 06:45 Urine Clarity HAZY (CLEAR) 05/04/17 06:45 Urine pH 8.0 (4.6 - 8.0) 05/04/17 06:45 Ur Specific [place] 1.015 (1.005-1.030) 05/04/17 06:45 Urine Protein TRACE mg/dL (NEGATIVE) 05/04/17 06:45 Urine Glucose (UA) NEGATIVE mg/dL (NEGATIVE) 05/04/17 06:45 Urine Ketones NEGATIVE mg/dL (NEGATIVE) 05/04/17 06:45 Urine Blood MODERATE (NEGATIVE) H 05/04/17 06:45 Urine Nitrate NEGATIVE (NEGATIVE) 05/04/17 06:45 Urine Bilirubin SMALL (NEGATIVE) H 05/04/17 06:45 Urine Urobilinogen 2.0 E.U./dL (0.2 - 1.0) 05/04/17 06:45 Ur Leukocyte Esterase NEGATIVE (NEGATIVE) 05/04/17 06:45 Urine RBC 5-10 /hpf (0-5) H 05/04/17 06:45 Urine WBC 2-5 /hpf (0-5) H 05/04/17 06:45 Ur Epithelial Cells MODERATE /lpf (FEW) 05/04/17 06:45 Amorphous Sediment FEW URATES (NONE SEEN) 05/04/17 06:45 Urine Bacteria MODERATE /hpf (NONE SEEN) H 05/04/17 06:45 Valproic Acid 37.6 ug/mL (50.0-100.0) L 05/09/17 09:00 - Physical Exam Vitals and I&O: Vital Signs Temp 97.8 F 05/09/17 20:00 Pulse 76 05/09/17 20:00 Resp 18 05/09/17 20:00 BP 101/75 05/09/17 20:00 Pulse Ox 98 05/09/17 20:00 Intake & Output 05/09/17 05/09/17 05/10/17 06:59 18:59 06:59 Intake Total 150 100 974.167 Output Total 100 Balance 50 100 974.167 Weight (lbs) 156 lb 156 lb Intake: Intake, IV Amount 150 974.167 Levofloxacin 250mg/50mL 50 250 mg In 50 ml @ 50 mls/ hr IV Q24HR [facility] Rx#: [id number] Piperacillin Sodium/ 100 Tazobact 3.375 gm In Sodium Chloride 0.9% 50 ml @ 100 mls/hr IV Q8HR [facility] Rx#:[id number] Sodium Chloride 0.9% 1, 974.167 000 ml @ 70 mls/hr IV . [id number] [facility] Rx#:[id number] Oral 100 Output: Urine 100 Stool 0 Other: # Voids 1 2 Active Medications: Current Medications Acetaminophen (Tylenol) 650 mg PO Q4H PRN PRN Reason: Pain (Mild) Stop: 07/03/17 16:21 Last Admin: 05/09/17 17:51 Dose: 650 mg Acetaminophen (Tylenol) 650 mg PO Q4H PRN PRN Reason: Pain or Fever >101 Al Hydrox/Mg Hydrox/Simethicone (Maalox) 30 ml PO Q4H PRN PRN Reason: GI DISTRESS Stop: 07/05/17 13:53 Albuterol Sulfate (Albuterol 2.5mg/3ml Neb Ud) 2.5 mg HHN Q6HRT [facility] Stop: 07/05/17 19:59 Last Admin: 05/09/17 19:18 Dose: 2.5 mg Albuterol/Ipratropium (Duoneb Neb) 3 ml HHN Q2H PRN PRN Reason: Wheezing Stop: 07/05/17 19:33 Last Admin: 05/06/17 23:27 Dose: 3 ml Amiodarone HCl (Cordarone) 200 mg PO BID [facility] Stop: 07/07/17 08:59 Last Admin: 05/09/17 17:54 Dose: 200 mg Aspirin (Ecotrin) 81 mg PO DAILY [facility] Stop: 07/06/17 08:59 Last Admin: 05/09/17 09:02 Dose: 81 mg Cholecalciferol (Vitamin D3) 5,000 iu PO DAILY [facility] Stop: 07/06/17 08:59 Last Admin: 05/09/17 09:03 Dose: 5,000 iu Diltiazem HCl (Cardizem) 5 mg IVP Q6H PRN PRN Reason: HR > 120 Stop: 07/03/17 14:59 Last Admin: 05/08/17 21:38 Dose: 5 mg Divalproex Sodium (Depakote Sprinkle) 250 mg PO BID [facility] PRN Reason: Protocol Stop: 07/05/17 16:59 Last Admin: 05/09/17 17:52 Dose: 250 mg Donepezil HCl (Aricept) 10 mg PO DAILY [facility] Stop: 07/06/17 08:59 Last Admin: 05/09/17 09:02 Dose: 10 mg Furosemide (Lasix) 40 mg IVP DAILY [facility] Stop: 07/07/17 12:44 Last Admin: 05/09/17 09:00 Dose: Not Given Levofloxacin (Levaquin Pb) 250 mg in 50 mls @ 50 mls/hr IV Q24HR [facility] Stop: 07/03/17 20:59 Last Admin: 05/09/17 20:44 Dose: 50 mls/hr Sodium Chloride (Nacl 0.9%) 1,000 mls @ 70 mls/hr IV .[id number] [facility] Stop: 07/03/17 01:59 Last Admin: 05/09/17 20:57 Dose: 70 mls/hr Norepinephrine Bitartrate 4 mg (/ Dextrose) 254 mls @ 30.48 mls/hr IV TITR PRN ; Protocol; 8 MCG/MIN PRN Reason: BP MAINTENANCE (PER PROTOCOL) Stop: 07/03/17 09:26 Last Titration: 05/06/17 10:00 Dose: 0 mcg/min, 0 mls/hr Ipratropium [place] (Atrovent Neb 0.5mg/2.5ml) 0.5 mg HHN Q6HRT [facility] Stop: 07/05/17 19:59 Last Admin: 05/09/17 19:21 Dose: 0.5 mg Levothyroxine Sodium (Synthroid) 0.05 mg PO QDAC [facility] Stop: 07/06/17 07:29 Last Admin: 05/09/17 13:07 Dose: 0.05 mg Lorazepam (Ativan) 1 mg IVP Q6HR PRN; Protocol PRN Reason: restlessness and agitation Stop: 07/03/17 00:26 Last Admin: 05/07/17 01:35 Dose: 1 mg Lorazepam (Ativan) 0.5 mg PO Q4HR PRN; Protocol PRN Reason: Anxiety Stop: 07/03/17 05:50 Lorazepam (Ativan) 0.5 mg PO Q4H PRN; Protocol PRN Reason: Anxiety Stop: 07/05/17 13:53 Magnesium Hydroxide (Milk Of Magnesia) 30 ml PO HS PRN PRN Reason: Constipation Stop: 07/05/17 13:53 Methylprednisolone Sodium Succinate (Solu-Medrol) 60 mg IVP Q6HR [facility] Stop: 07/06/17 00:00 Last Admin: 05/09/17 17:52 Dose: 60 mg Miscellaneous (Probiotic Screen) 1 ea MC PRN PRN PRN Reason: PROTOCOL Stop: 07/04/17 16:18 Multivitamins/Vitamin C (Theragran) 1 tab PO DAILY [facility] Stop: 07/06/17 08:59 Last Admin: 05/09/17 09:02 Dose: 1 tab Quetiapine Fumarate (Seroquel) 25 mg PO BID [facility] PRN Reason: Protocol Stop: 07/08/17 08:07 Last Admin: 05/09/17 17:50 Dose: 25 mg Tamsulosin HCl (Flomax) 0.4 mg PO DAILY [facility] Stop: 07/06/17 08:59 Last Admin: 05/09/17 09:02 Dose: 0.4 mg Zolpidem Tartrate (Ambien) 5 mg PO HS PRN PRN Reason: Insomnia Stop: 07/05/17 20:59 General: weak HEENT: NC/AT Neck: Supple Lungs: CTAB Cardiovascular: RRR Abdomen: non-tender - Procedures Procedures: Procedures Procedure Code Date ASSISTANCE WITH RESPIRATORY VENTILATION, <24 HRS, CPAP [id number] 05/03/17 POS AIRWAY PRESSURE CPAP [id number] 05/03/17 Internal Medicine Assmt/Plan - Assessment Assessment: 1. Pneumonia. 2. COPD. 3. Psychosis. - Plan Plan: CONTINUE IVABX PER ID FOLLOW UP LABS IN AM CPM Nutritional Asmnt/Malnutr-PDOC - Dietary Evaluation Malnutrition Findings (Please click <Entered> for more info): Nutritional Asmnt/Malnutrition Start: 05/08/17 15: 11 Text: Status: Complete Freq: Document 05/08/17 15:12 LCHEN (Rec: 05/08/17 15:24 LCHEN [email or web address]) Nutritional Asmnt/Malnutrition Patient General Information Nutritional Screening Moderate Risk Diagnosis PNA, pleural effusion & sepsis Pertinent Medical Hx/Surgical Hx HTN, CAD, hypothyroid, arthritis, dementia, BPH Subjective Information Pt seen sleeping in bed at time of visit. Per notes, PO intake 30-50%. Spoke with RN, pt consumed about 50% of breakfast this morning. Per nurse notes 1., pt was tolerating diet well with assistance. Pt remain on Bipap . Current Diet Order/ Nutrition Support pureed Pertinent Medications vitamin d3, lasix, levaquin, synthroid, theragran, piperacillin, seroquel, Nacl 0 .9% Pertinent Labs 05/08 Na 137, K 4.2, Cl 108, BUN 23, Cr 0.8, Glucose 109, Ca 8.4 Nutritional Hx/Data Height 5 ft 4 in Height (Calculated Centimeters) 162.6 Current Weight (lbs) 122 lb Weight (Calculated Kilograms) 55.3 Weight (Calculated Grams) 64517.3 [place] Body Weight 130 % [place] Body Weight 101 Body Mass Index (BMI) 20.9 Weight Status Approriate GI Symptoms GI Symptoms None Difficult in: None Skin Integrity/Comment: bruise redded to left arm, skin tear to right arm Estimated Nutritional Goals BEE in Kcals: Using Current wt Calories/Kcals/Kg 30-35 Kcals Calculated 2916-1984 Protein: Using Current wt Protein g/k.2-1.4 Protein Calculated 66-77 Fluid: ml 1650-1925ml (1ml/kcal) Nutritional Problem 1. Problem Problem inadequate food intake Etiology poor appetite Signs/Symptoms: PO intake 30-50% Malnutrition Alert Protein-Calorie Malnutrition N/A Is there a minimum of two criteria No selected? Query Text:Check all the applicable criteria. A minimum of two criteria are recommended for diagnosis of either severe or non-severe malnutrition. Intervention/Recommendation Comments 1. Recommend Boost Plus BID to increase nutrition intake. RN made aware. 2. Monitor PO intake, wt, labs and skin integrity 3. F/U as moderate risk in 3-5 days, 05/11-05/13 Expected Outcomes/Goals Expected Outcomes/Goals 1. PO intake to meet at least 75% of nutritional needs. 2. Wt stability, skin to remain intact, labs to approach WNL.
[2017-05-10] MEDS: Diltiazem 5 mg/mL 5mL Vial IVP PRN ×4 (00:24→20:26)
[2017-05-10] MEDS: Albuterol Nebulizer 2.5mg/3mL HHN SCH ×4 (01:00→19:26)
[2017-05-10] MEDS: Ipratropium Neb 0.5 mg/2.5 mL UD HHN SCH ×4 (01:01→19:26)
[2017-05-10] MEDS: Levothyroxine 0.05 Mg Tab PO SCH (06:31)
[2017-05-10] MEDS: Multivitamin Tab PO SCH (08:36)
--- NOTE | 2017-05-10 09:16 | Diagnostic Imaging Report ---
CHEST X-RAY: AP view INDICATION: shortness of breath COMPARISON: 05/07/2017 FINDINGS: Diffuse bilateral infiltrates are seen with congestive changes and right effusion. Cardiomegaly is noted. IMPRESSION: Congestive changes, right effusion and diffuse bilateral pulmonary infiltrates. Findings may be due to a combination of CHF and/or pneumonia. Cardiomegaly.
[2017-05-10] MEDS: Levofloxacin 250 mg/50 mL Premix Bag IV SCH (22:00)
[2017-05-10] MEDS ORDERED: Norepinephrine 4 mg/4mL Vial IV ONE (23:35)
[2017-05-10] MEDS: Albuterol/Ipratropium Neb 3 ML AERS HHN PRN (23:40)
[2017-05-10] MEDS ORDERED: Diltiazem 5 mg/mL 25mL Vial IV ONE (23:50)
[2017-05-11] MEDS: Ipratropium Neb 0.5 mg/2.5 mL UD HHN SCH ×4 (01:26→18:44)
[2017-05-11] MEDS: Albuterol Nebulizer 2.5mg/3mL HHN SCH ×4 (01:26→18:44)
[2017-05-11] MEDS ORDERED: Sodium Chloride 0.9% 500 ML IV ONE (01:27)
--- NOTE | 2017-05-11 01:52 | Progress Notes ---
DATE: 05/10/2017 SUBJECTIVE: The patient was seen in his room lying in bed. The patient is awake, but a poor historian due to medical condition. Otherwise, the patient appears to be in no acute distress. OBJECTIVES: VITAL SIGNS: Temperature of 96.8, heart rate of 70, blood pressure of 106/78, respiration of 18, 98% on 2 L via nasal cannula. HEENT: Head is atraumatic and normocephalic. Eyes: Bilateral conjunctivae are clear. Bilateral pupils are equally round and reactive. NECK: Supple. No JVD. CARDIOVASCULAR: S1 and S2 without murmur. PULMONARY: Mild inspiratory wheezing noted. GASTROINTESTINAL: Soft and nontender without guarding. Positive bowel sounds. MUSCULOSKELETAL: No clubbing, no cyanosis noted. ASSESSMENT: 1. Pneumonia. 2. Chronic obstructive pulmonary disease. 3. Psychosis. 4. Hypertension. 5. Vitamin D deficiency. 6. Dementia. 7. Hypothyroidism. 8. Benign prostatic hypertrophy. PLAN: We will continue current treatment. We will renew Levaquin 250 mg IV piggy bag daily. Treatment plans were discussed with the patient's nurse. Treatment plans were discussed with Dr. [place]. JOB# [id number]
[2017-05-11] MEDS: Sodium Chloride 0.9% 1,000 ML IV SCH (02:42)
[2017-05-11] MEDS: Meropenem 500 MG in Sodium Chloride 0.9% 100 ML IV SCH ×3 (03:07→18:12)
[2017-05-11 03:11] LABS: HEMATOCRIT 34.5 % (41.0-60); HEMOGLOBIN 11.6 gm/dL (12-16); LYMPHOCYTE ABSOLUTE 0.6 Th/cmm (1.5-3.0); MEAN CELL VOLUME 98.6 fl (80-99); MEAN CORPUSCULAR HEMOGLOBIN 33.1 pg (27.0-31.0); MEAN CORPUSCULAR HGB CONC 33.6 pg (28.0-36.0); MEAN PLATELET VOLUME 9.7 fl; MONOCYTE ABSOLUTE 0.5 Th/cmm (0.3-1.0); NEUTROPHILE ABSOLUTE 18.4 Th/cmm (1.8-8.0); PLATELET COUNT 104 Th/cmm (150-400); RED CELL DISTRIBUTION WIDTH 15.6 % (11.5-20.0)
[2017-05-11 03:15] LABS: WHITE BLOOD COUNT 19.5 Th/cmm (4.8-10.8)
[2017-05-11 03:26] LABS: URINE MICROSCOPIC INDICATED? YES; URINE SOURCE RANDOM
[2017-05-11 03:35] LABS: ALB/GLOB RATIO 1.1 (1.0-1.8); ALBUMIN 2.5 gm/dL (4.2-5.5); ALKALINE PHOSPHATASE 34 U/L (34-104); ANION GAP 14.3 (7.0-16.0); BILIRUBIN,TOTAL 1.8 mg/dL (0.3-1.0); BUN - UREA NITROGEN 35 mg/dL (7-25); CARBON DIOXIDE 25.8 mEq/L (21.0-31.0); CHLORIDE 106 mEq/L (98-107); CREATININE - SERUM 1.2 mg/dL (0.7-1.3); GLUCOSE 146 mg/dL (70-105); POTASSIUM SERUM 3.1 mEq/L (3.5-5.1); SGOT 36 U/L (13-39); SGPT/ALT 19 U/L (7-52); SODIUM SERUM 143 mEq/L (136-145); TOTAL PROTEIN,SERUM 4.7 gm/dL (6.0-8.3)
[2017-05-11 04:02] LABS: URINE BILIRUBIN NEGATIVE (NEGATIVE); URINE BLOOD MODERATE (NEGATIVE); URINE GLUCOSE (UA) NEGATIVE (NEGATIVE); URINE KETONE NEGATIVE (NEGATIVE); URINE LEUKOCYTE ESTERASE NEGATIVE (NEGATIVE); URINE NITRATE NEGATIVE (NEGATIVE); URINE PROTEIN NEGATIVE (NEGATIVE); URINE UROBILINOGEN 0.2 E.U./dL (0.2 - 1.0)
[2017-05-11 04:03] LABS: URINE CLARITY HAZY (CLEAR); URINE COLOR YELLOW
[2017-05-11 04:07] LABS: URINE RBC 25-50 /hpf (0-5)
[2017-05-11 04:09] LABS: URINE BACTERIA FEW /hpf (NONE SEEN); URINE EPITHELIAL CELLS FEW /lpf (FEW); URINE FINE GRANULAR CAST 0-2 /lpf (NONE SEEN)
[2017-05-11 05:25] LABS: BAND NEUTROPHILE 5 % (0-10); EOSINOPHIL 1 % (0-5); LYMPHOCYTE 3 % (20-50); MONOCYTE 1 % (2-10); NEUTROPHILS 90 % (40-80); PLATELET ESTIMATE SLIGHT DECREASED (NORMAL); TOTAL CELLS COUNTED 100
[2017-05-11 05:26] LABS: ANISOCYTOSIS 1+
[2017-05-11] MEDS: Levothyroxine 0.05 Mg Tab PO SCH (07:29)
[2017-05-11] MEDS ORDERED: Potassium Chloride 40 MEQ, Lidocaine 1% 20mL Vial 25 MG in Sodium Chloride 0.9% 250 ML IV ONE (07:59)
--- NOTE | 2017-05-11 09:24 | Diagnostic Imaging Report ---
CHEST X-RAY: AP view INDICATION: Pneumonia COMPARISON: Chest x-ray 05/10/[address] of the chest on 05/07/2017 FINDINGS: Extensive bilateral infiltrates are seen with right effusion. There may be a trace left effusion. Right perihilar opacities again noted. Cardiomegaly is noted. IMPRESSION: No significant change in pulmonary status including extensive infiltrates and right effusion and right perihilar opacity. Follow-up is recommended to ensure resolution of right perihilar opacity and to exclude neoplastic process in this region.
[2017-05-11] MEDS: Multivitamin Tab PO SCH (09:42)
--- NOTE | 2017-05-11 10:07 | General Progress Note ---
Subjective - Review of Systems Events since last encounter: patient awake in no distress Objective - Results Result Diagrams: 05/11/17 01:21 05/11/17 02:46 Recent Labs: Laboratory Last Values WBC 19.5 Th/cmm (4.8-10.8) H D 05/11/17 01:21 RBC 3.50 Mil/cmm (3.80-5.80) L 05/11/17 01:21 Hgb 11.6 gm/dL (12-16) L 05/11/17 01:21 Hct 34.5 % (41.0-60) L 05/11/17 01:21 MCV 98.6 fl (80-99) 05/11/17 01:21 MCH 33.1 pg (27.0-31.0) H 05/11/17 01:21 MCHC Differential 33.6 pg (28.0-36.0) 05/11/17 01:21 RDW 15.6 % (11.5-20.0) 05/11/17 01:21 Plt Count 104 Th/cmm (150-400) L 05/11/17 01:21 MPV 9.7 fl 05/11/17 01:21 Band Neutrophils % 5 % (0-10) 05/11/17 01:21 Neutrophils (Manual) 90 % (40-80) H 05/11/17 01:21 Lymphocytes 3 % (20-50) L 05/11/17 01:21 Monocytes 1 % (2-10) L 05/11/17 01:21 Eosinophils 1 % (0-5) 05/11/17 01:21 Atypical Lymphocytes 3 % 05/04/17 04:45 Hypochromia 1+ 05/04/17 04:45 Platelet Estimate SLIGHT DECREASED (NORMAL) 05/11/17 01:21 Platelet Morphology GIANT PLATELETS SEEN (NORMAL) 05/03/17 23:55 Anisocytosis 1+ 05/11/17 01:21 Microcytosis 1+ 05/04/17 04:45 Macrocytosis 1+ 05/11/17 01:21 RBC Morph Micro Appear NORMAL (NORMAL) 05/03/17 23:55 PT 17.8 SECONDS (9.5-11.5) H 05/07/17 08:00 INR 1.66 (0.5-1.4) H 05/07/17 08:00 PTT (Actin FS) 26.6 SECONDS (26.0-38.0) 05/07/17 08:00 Specimen Source Arterial 05/07/17 10:00 Sample Site RB 05/07/17 10:00 pH 7.46 (7.35-7.45) H 05/07/17 10:00 pCO2 34.0 mmHg (35.0-45.0) L 05/07/17 10:00 pO2 110.0 mmHg (80.0-100.0) H 05/07/17 10:00 HCO3 25.6 mEq/L (20.0-26.0) 05/07/17 10:00 Base Excess 0.8 mEq/L (-3.0-3.0) 05/07/17 10:00 O2 Saturation 99.0 % (92.0-100.0) 05/07/17 10:00 Vent Rate 14 05/07/17 10:00 Inspired O2 40 05/07/17 10:00 Critical Value PW 05/07/17 10:00 Sodium 143 mEq/L (136-145) 05/11/17 02:46 Potassium 3.1 mEq/L (3.5-5.1) L 05/11/17 02:46 Chloride 106 mEq/L (98-107) 05/11/17 02:46 Carbon Dioxide 25.8 mEq/L (21.0-31.0) 05/11/17 02:46 Anion Gap 14.3 (7.0-16.0) 05/11/17 02:46 BUN 35 mg/dL (7-25) H 05/11/17 02:46 Creatinine 1.2 mg/dL (0.7-1.3) 05/11/17 02:46 Est GFR ( Amer) TNP 05/11/17 02:46 Est GFR (Non-Af Amer) TNP 05/11/17 02:46 BUN/Creatinine Ratio 29.2 05/11/17 02:46 Glucose 146 mg/dL (70-105) H 05/11/17 02:46 Whole Bld Lactic Acid 3.35 mmol/L (0.60-1.99) H* 05/11/17 07:15 Calcium 8.0 mg/dL (8.6-10.3) L 05/11/17 02:46 Total Bilirubin 1.8 mg/dL (0.3-1.0) H 05/11/17 02:46 AST 36 U/L (13-39) 05/11/17 02:46 ALT 19 U/L (7-52) 05/11/17 02:46 Alkaline Phosphatase 34 U/L (34-104) 05/11/17 02:46 B-Natriuretic Peptide 529.0 pg/mL (5.0-100.0) H 05/10/17 04:50 Total Protein 4.7 gm/dL (6.0-8.3) L 05/11/17 02:46 Albumin 2.5 gm/dL (4.2-5.5) L 05/11/17 02:46 Globulin 2.2 gm/dL 05/11/17 02:46 Albumin/Globulin Ratio 1.1 (1.0-1.8) 05/11/17 02:46 Urine Source RANDOM 05/11/17 02:30 Urine Color YELLOW 05/11/17 02:30 Urine Clarity HAZY (CLEAR) 05/11/17 02:30 Urine pH 5.0 (4.6 - 8.0) 05/11/17 02:30 Ur Specific [place] 1.010 (1.005-1.030) 05/11/17 02:30 Urine Protein NEGATIVE mg/dL (NEGATIVE) 05/11/17 02:30 Urine Glucose (UA) NEGATIVE mg/dL (NEGATIVE) 05/11/17 02:30 Urine Ketones NEGATIVE mg/dL (NEGATIVE) 05/11/17 02:30 Urine Blood MODERATE (NEGATIVE) H 05/11/17 02:30 Urine Nitrate NEGATIVE (NEGATIVE) 05/11/17 02:30 Urine Bilirubin NEGATIVE (NEGATIVE) 05/11/17 02:30 Urine Urobilinogen 0.2 E.U./dL (0.2 - 1.0) 05/11/17 02:30 Ur Leukocyte Esterase NEGATIVE (NEGATIVE) 05/11/17 02:30 Urine RBC 25-50 /hpf (0-5) H 05/11/17 02:30 Urine WBC 6-10 /hpf (0-5) H 05/11/17 02:30 Ur Epithelial Cells FEW /lpf (FEW) 05/11/17 02:30 Amorphous Sediment FEW URATES (NONE SEEN) 05/04/17 06:45 Urine Bacteria FEW /hpf (NONE SEEN) 05/11/17 02:30 Hyaline Casts 2-5 /lpf (0-2) H 05/11/17 02:30 Fine Granular Casts 0-2 /lpf (NONE SEEN) H 05/11/17 02:30 Valproic Acid 37.6 ug/mL (50.0-100.0) L 05/09/17 09:00 - Physical Exam Vitals and I&O: Vital Signs Temp 96.2 F 05/11/17 08:00 Pulse 118 05/11/17 09:40 Resp 24 05/11/17 09:13 BP 128/71 05/11/17 09:06 Pulse Ox 94 05/11/17 09:13 Intake & Output 05/10/17 05/11/17 05/11/17 18:59 06:59 18:59 Intake Total 1000 625.784 21.667 Output Total 1150 Balance 1000 -524.216 21.667 Weight (lbs) 73.482 kg Intake: Intake, IV Amount 1000 425.784 21.667 Diltiazem 125 mg In 66.25 21.667 Dextrose 5% 100 ml @ 5 MG /HR 5 mls/hr IV TITR [facility] Rx#:[id number] Meropenem 500 mg In 100 Sodium Chloride 0.9% 100 ml @ 100 mls/hr IV Q8H [facility] Rx#:[id number] Norepinephrine 4 mg In 28.534 Dextrose 5% 250 ml @ 8 MCG/MIN 30.48 mls/hr IV TITR PRN Rx#:[id number] Sodium Chloride 0.9% 1, 1000 231 000 ml @ 70 mls/hr IV . [id number] [facility] Rx#:[id number] Oral 200 Output: Urine 1150 Other: # Voids 3 # Bowel Movements 0 Active Medications: Current Medications Acetaminophen (Tylenol) 650 mg PO Q4H PRN PRN Reason: Pain or Fever >101 Acetaminophen (Tylenol 650mg Supp) 650 mg RC Q4H PRN PRN Reason: TEMP >101 Stop: 07/10/17 02:06 Al Hydrox/Mg Hydrox/Simethicone (Maalox) 30 ml PO Q4H PRN PRN Reason: GI DISTRESS Stop: 07/05/17 13:53 Albuterol Sulfate (Albuterol 2.5mg/3ml Neb Ud) 2.5 mg HHN Q6HRT [facility] Stop: 07/05/17 19:59 Last Admin: 05/11/17 06:55 Dose: 2.5 mg Albuterol/Ipratropium (Duoneb Neb) 3 ml HHN Q2HRT PRN PRN Reason: Wheezing Stop: 07/05/17 19:33 Last Admin: 05/10/17 23:40 Dose: 3 ml Amiodarone HCl (Cordarone) 200 mg PO BID [facility] Stop: 07/07/17 08:59 Last Admin: 05/11/17 09:40 Dose: Not Given Aspirin (Ecotrin) 81 mg PO DAILY [facility] Stop: 07/06/17 08:59 Last Admin: 05/11/17 09:41 Dose: Not Given Cholecalciferol (Vitamin D3) 5,000 iu PO DAILY [facility] Stop: 07/06/17 08:59 Last Admin: 05/11/17 09:41 Dose: Not Given Diltiazem HCl (Cardizem) 20 mg IVP Q6HR PRN PRN Reason: hr above 120 Stop: 07/09/17 17:59 Last Admin: 05/10/17 20:26 Dose: 20 mg Divalproex Sodium (Depakote Sprinkle) 250 mg PO BID [facility] PRN Reason: Protocol Stop: 07/05/17 16:59 Last Admin: 05/11/17 09:41 Dose: Not Given Donepezil HCl (Aricept) 10 mg PO DAILY [facility] Stop: 07/06/17 08:59 Last Admin: 05/11/17 09:41 Dose: Not Given Furosemide (Lasix) 40 mg IVP DAILY [facility] Stop: 07/07/17 12:44 Last Admin: 05/11/17 09:06 Dose: 40 mg Sodium Chloride (Nacl 0.9%) 1,000 mls @ 70 mls/hr IV .[id number] [facility] Stop: 07/03/17 01:59 Last Infusion: 05/11/17 06:00 Dose: 70 mls/hr Norepinephrine Bitartrate 4 mg (/ Dextrose) 254 mls @ 30.48 mls/hr IV TITR PRN ; Protocol; 8 MCG/MIN PRN Reason: BP MAINTENANCE (PER PROTOCOL) Stop: 07/03/17 09:26 Last Titration: 05/11/17 06:00 Dose: 0.52 mcg/min, 2 mls/hr Diltiazem HCl 125 mg/ Dextrose 125 mls @ 5 mls/hr IV TITR [facility]; 5 MG/HR PRN Reason: Protocol Stop: 07/09/17 23:29 Last Titration: 05/11/17 08:10 Dose: 12.5 mg/hr, 12.5 mls/hr Meropenem 500 mg/ Sodium (Chloride) 100 mls @ 100 mls/hr IV Q8H [facility] Stop: 07/10/17 01:59 Last Admin: 05/11/17 09:07 Dose: 100 mls/hr Potassium Chloride 40 meq/Lidocaine HCl 25 mg/ Sodium Chloride 272.5 mls @ 68 mls/hr IV X1 ONE Stop: 05/11/17 11:59 Last Admin: 05/11/17 09:57 Dose: 68 mls/hr Vancomycin HCl 1 gm/ Dextrose 250 mls @ 165 mls/hr IV Q24H [facility] Stop: 07/10/17 09:59 Ipratropium [place] (Atrovent Neb 0.5mg/2.5ml) 0.5 mg HHN Q6HRT [facility] Stop: 07/05/17 19:59 Last Admin: 05/11/17 06:55 Dose: 0.5 mg Levothyroxine Sodium (Synthroid) 0.05 mg PO QDAC [facility] Stop: 07/06/17 07:29 Last Admin: 05/11/17 07:29 Dose: Not Given Lorazepam (Ativan) 1 mg IVP Q6HR PRN; Protocol PRN Reason: restlessness and agitation Stop: 07/03/17 00:26 Last Admin: 05/10/17 16:46 Dose: 1 mg Lorazepam (Ativan) 0.5 mg PO Q4HR PRN; Protocol PRN Reason: Anxiety Stop: 07/03/17 05:50 Lorazepam (Ativan) 0.5 mg PO Q4H PRN; Protocol PRN Reason: Anxiety Stop: 07/05/17 13:53 Magnesium Hydroxide (Milk Of Magnesia) 30 ml PO HS PRN PRN Reason: Constipation Stop: 07/05/17 13:53 Methylprednisolone Sodium Succinate (Solu-Medrol) 60 mg IVP Q6HR [facility] Stop: 07/06/17 00:00 Last Admin: 05/11/17 06:02 Dose: 60 mg Miscellaneous (Probiotic Screen) 1 ea [facility] PRN PRN PRN Reason: PROTOCOL Stop: 07/04/17 16:18 Miscellaneous (Vancomycin Iv Per Pharmacy) 1 ea MC PRN [facility] Stop: 07/10/17 01:29 Multivitamins/Vitamin C (Theragran) 1 tab PO DAILY [facility] Stop: 07/06/17 08:59 Last Admin: 05/11/17 09:42 Dose: Not Given Quetiapine Fumarate (Seroquel) 25 mg PO BID [facility] PRN Reason: Protocol Stop: 07/08/17 08:07 Last Admin: 05/11/17 09:40 Dose: Not Given Tamsulosin HCl (Flomax) 0.4 mg PO DAILY [facility] Stop: 07/06/17 08:59 Last Admin: 05/11/17 09:42 Dose: Not Given Zolpidem Tartrate (Ambien) 5 mg PO HS PRN PRN Reason: Insomnia Stop: 07/05/17 20:59 General: No acute distress HEENT: Atraumatic Neck: Supple Cardiovascular: Regular rate, Normal S1, Normal S2 Abdomen: Bowel sounds - Procedures Procedures: Procedures Procedure Code Date ASSISTANCE WITH RESPIRATORY VENTILATION, <24 HRS, CPAP [id number] 05/03/17 POS AIRWAY PRESSURE CPAP 36997 05/03/17 Assessment/Plan - Problem List Patient Problems: All Active Problems INCREASED AGITATION AND POOR ORAL INTAKE (Acute) - Assessment Assessment: 1. Pneumonia. 2. COPD. 3. Psychosis. - Plan Plan: continue icu monitoring continue iv antibiotics as per id levophed titrate as per protocol cpm Nutritional Asmnt/Malnutr-PDOC - Dietary Evaluation Malnutrition Findings (Please click <Entered> for more info): Nutritional Asmnt/Malnutrition Start: 05/08/17 15: 11 Text: Status: Complete Freq: Document 05/08/17 15:12 CORINA (Rec: 05/08/17 15:24 CORINA [email or web address]) Nutritional Asmnt/Malnutrition Patient General Information Nutritional Screening Moderate Risk Diagnosis PNA, pleural effusion & sepsis Pertinent Medical Hx/Surgical Hx HTN, CAD, hypothyroid, arthritis, dementia, BPH Subjective Information Pt seen sleeping in bed at time of visit. Per notes, PO intake 30-50%. Spoke with RN, pt consumed about 50% of breakfast this morning. Per nurse notes 1.25, pt was tolerating diet well with assistance. Pt remain on Bipap . Current Diet Order/ Nutrition Support pureed Pertinent Medications vitamin d3, lasix, levaquin, synthroid, theragran, piperacillin, seroquel, Nacl 0 .9% Pertinent Labs 05/08 Na 137, K 4.2, Cl 108, BUN 23, Cr 0.8, Glucose 109, Ca 8.4 Nutritional Hx/Data Height 1.63 m Height (Calculated Centimeters) 162.6 Current Weight (lbs) 55.338 kg Weight (Calculated Kilograms) 55.3 Weight (Calculated Grams) 39803.3 [place] Body Weight 130 % [place] Body Weight 101 Body Mass Index (BMI) 20.9 Weight Status Approriate GI Symptoms GI Symptoms None Difficult in: None Skin Integrity/Comment: bruise redded to left arm, skin tear to right arm Estimated Nutritional Goals BEE in Kcals: Using Current wt Calories/Kcals/Kg 30-35 Kcals Calculated 1897-1273 Protein: Using Current wt Protein g/k.2-1.4 Protein Calculated 66-77 Fluid: ml 1650-1925ml (1ml/kcal) Nutritional Problem 1. Problem Problem inadequate food intake Etiology poor appetite Signs/Symptoms: PO intake 30-50% Malnutrition Alert Protein-Calorie Malnutrition N/A Is there a minimum of two criteria No selected? Query Text:Check all the applicable criteria. A minimum of two criteria are recommended for diagnosis of either severe or non-severe malnutrition. Intervention/Recommendation Comments 1. Recommend Boost Plus BID to increase nutrition intake. RN made aware. 2. Monitor PO intake, wt, labs and skin integrity 3. F/U as moderate risk in 3-5 days, 05/11-05/13 Expected Outcomes/Goals Expected Outcomes/Goals 1. PO intake to meet at least 75% of nutritional needs. 2. Wt stability, skin to remain intact, labs to approach WNL.
[2017-05-11] MEDS ORDERED: Sodium Chloride 0.9% 1,000 ML IV SCH (14:58)
[2017-05-11] MEDS: D5-0.9%NS 1,000 ML IV SCH (17:08)
[2017-05-12] MEDS: Ipratropium Neb 0.5 mg/2.5 mL UD HHN SCH ×4 (00:23→18:41)
[2017-05-12] MEDS: Albuterol Nebulizer 2.5mg/3mL HHN SCH ×4 (00:23→18:41)
[2017-05-12] MEDS: Meropenem 500 MG in Sodium Chloride 0.9% 100 ML IV SCH ×3 (02:09→17:41)
[2017-05-12 04:52] LABS: ANION GAP 11.8 (7.0-16.0); BUN - UREA NITROGEN 39 mg/dL (7-25); CALCIUM SERUM 8.1 mg/dL (8.6-10.3); CHLORIDE 110 mEq/L (98-107); CREATININE - SERUM 1.2 mg/dL (0.7-1.3); GLUCOSE 148 mg/dL (70-105); POTASSIUM SERUM 3.8 mEq/L (3.5-5.1); SODIUM SERUM 145 mEq/L (136-145)
[2017-05-12] MEDS: Levothyroxine 0.05 Mg Tab PO SCH (06:34)
[2017-05-12 09:02] LABS: pH 7.57 (7.35-7.45)
[2017-05-12 09:05] LABS: ALLEN TEST Y
--- NOTE | 2017-05-12 10:14 | General Progress Note ---
Subjective - Review of Systems Events since last encounter: in no acute distress Objective - Results Result Diagrams: 05/11/17 01:21 05/12/17 04:15 Recent Labs: Laboratory Last Values WBC 19.5 Th/cmm (4.8-10.8) H D 05/11/17 01:21 RBC 3.50 Mil/cmm (3.80-5.80) L 05/11/17 01:21 Hgb 11.6 gm/dL (12-16) L 05/11/17 01:21 Hct 34.5 % (41.0-60) L 05/11/17 01:21 MCV 98.6 fl (80-99) 05/11/17 01:21 MCH 33.1 pg (27.0-31.0) H 05/11/17 01:21 MCHC Differential 33.6 pg (28.0-36.0) 05/11/17 01:21 RDW 15.6 % (11.5-20.0) 05/11/17 01:21 Plt Count 104 Th/cmm (150-400) L 05/11/17 01:21 MPV 9.7 fl 05/11/17 01:21 Band Neutrophils % 5 % (0-10) 05/11/17 01:21 Neutrophils (Manual) 90 % (40-80) H 05/11/17 01:21 Lymphocytes 3 % (20-50) L 05/11/17 01:21 Monocytes 1 % (2-10) L 05/11/17 01:21 Eosinophils 1 % (0-5) 05/11/17 01:21 Atypical Lymphocytes 3 % 05/04/17 04:45 Hypochromia 1+ 05/04/17 04:45 Platelet Estimate SLIGHT DECREASED (NORMAL) 05/11/17 01:21 Platelet Morphology GIANT PLATELETS SEEN (NORMAL) 05/03/17 23:55 Anisocytosis 1+ 05/11/17 01:21 Microcytosis 1+ 05/04/17 04:45 Macrocytosis 1+ 05/11/17 01:21 RBC Morph Micro Appear NORMAL (NORMAL) 05/03/17 23:55 PT 17.8 SECONDS (9.5-11.5) H 05/07/17 08:00 INR 1.66 (0.5-1.4) H 05/07/17 08:00 PTT (Actin FS) 26.6 SECONDS (26.0-38.0) 05/07/17 08:00 Specimen Source ARTERIAL 05/12/17 08:45 Sample Site LEFT RADIAL 05/12/17 08:45 pH 7.57 (7.35-7.45) H* 05/12/17 08:45 pCO2 33.0 mmHg (35.0-45.0) L 05/12/17 08:45 pO2 97.0 mmHg (80.0-100.0) 05/12/17 08:45 HCO3 31.0 mEq/L (20.0-26.0) H 05/12/17 08:45 Base Excess 8.0 mEq/L (-3.0-3.0) H 05/12/17 08:45 O2 Saturation 98.0 % (92.0-100.0) 05/12/17 08:45 Tom Test Y 05/12/17 08:45 Vent Rate NA 05/12/17 08:45 Inspired O2 100 05/12/17 08:45 Tidal Volume N/A 05/12/17 08:45 PEEP N/A 05/12/17 08:45 Pressure (ins/psv/peep) N/A 05/12/17 08:45 Critical Value O.FARRIS 05/12/17 08:45 Sodium 145 mEq/L (136-145) 05/12/17 04:15 Potassium 3.8 mEq/L (3.5-5.1) 05/12/17 04:15 Chloride 110 mEq/L (98-107) H 05/12/17 04:15 Carbon Dioxide 27.0 mEq/L (21.0-31.0) 05/12/17 04:15 Anion Gap 11.8 (7.0-16.0) 05/12/17 04:15 BUN 39 mg/dL (7-25) H 05/12/17 04:15 Creatinine 1.2 mg/dL (0.7-1.3) 05/12/17 04:15 Est GFR ( Amer) TNP 05/12/17 04:15 Est GFR (Non-Af Amer) TNP 05/12/17 04:15 BUN/Creatinine Ratio 32.5 05/12/17 04:15 Glucose 148 mg/dL (70-105) H 05/12/17 04:15 Whole Bld Lactic Acid 3.46 mmol/L (0.60-1.99) H* 05/11/17 09:45 Calcium 8.1 mg/dL (8.6-10.3) L 05/12/17 04:15 Total Bilirubin 1.8 mg/dL (0.3-1.0) H 05/11/17 02:46 AST 36 U/L (13-39) 05/11/17 02:46 ALT 19 U/L (7-52) 05/11/17 02:46 Alkaline Phosphatase 34 U/L (34-104) 05/11/17 02:46 Ammonia 67 umol/L (16-53) H 05/11/17 02:46 B-Natriuretic Peptide 257.0 pg/mL (5.0-100.0) H 05/12/17 04:15 Total Protein 4.7 gm/dL (6.0-8.3) L 05/11/17 02:46 Albumin 2.5 gm/dL (4.2-5.5) L 05/11/17 02:46 Globulin 2.2 gm/dL 05/11/17 02:46 Albumin/Globulin Ratio 1.1 (1.0-1.8) 05/11/17 02:46 Urine Source RANDOM 05/11/17 02:30 Urine Color YELLOW 05/11/17 02:30 Urine Clarity HAZY (CLEAR) 05/11/17 02:30 Urine pH 5.0 (4.6 - 8.0) 05/11/17 02:30 Ur Specific [place] 1.010 (1.005-1.030) 05/11/17 02:30 Urine Protein NEGATIVE mg/dL (NEGATIVE) 05/11/17 02:30 Urine Glucose (UA) NEGATIVE mg/dL (NEGATIVE) 05/11/17 02:30 Urine Ketones NEGATIVE mg/dL (NEGATIVE) 05/11/17 02:30 Urine Blood MODERATE (NEGATIVE) H 05/11/17 02:30 Urine Nitrate NEGATIVE (NEGATIVE) 05/11/17 02:30 Urine Bilirubin NEGATIVE (NEGATIVE) 05/11/17 02:30 Urine Urobilinogen 0.2 E.U./dL (0.2 - 1.0) 05/11/17 02:30 Ur Leukocyte Esterase NEGATIVE (NEGATIVE) 05/11/17 02:30 Urine RBC 25-50 /hpf (0-5) H 05/11/17 02:30 Urine WBC 6-10 /hpf (0-5) H 05/11/17 02:30 Ur Epithelial Cells FEW /lpf (FEW) 05/11/17 02:30 Amorphous Sediment FEW URATES (NONE SEEN) 05/04/17 06:45 Urine Bacteria FEW /hpf (NONE SEEN) 05/11/17 02:30 Hyaline Casts 2-5 /lpf (0-2) H 05/11/17 02:30 Fine Granular Casts 0-2 /lpf (NONE SEEN) H 05/11/17 02:30 Random Vancomycin 14.9 ug/mL (5.0-40.0) 05/12/17 04:15 Valproic Acid 37.6 ug/mL (50.0-100.0) L 05/09/17 09:00 - Physical Exam Vitals and I&O: Vital Signs Temp 97.2 F 05/12/17 08:00 Pulse 114 05/12/17 09:15 Resp 27 05/12/17 09:19 BP 129/54 05/12/17 09:15 Pulse Ox 97 05/12/17 09:19 Intake & Output 05/11/17 05/12/17 05/12/17 18:59 06:59 18:59 Intake Total 449.275 425.000 10 Output Total 800 400 Balance 449.275 -375.000 -390 Weight (lbs) 73.028 kg 73.028 kg Intake: Intake, IV Amount 449.275 325.000 Diltiazem 125 mg In 143.667 125.000 Dextrose 5% 100 ml @ 5 MG /HR 5 mls/hr IV TITR [facility] Rx#:[id number] Meropenem 500 mg In 100 200 Sodium Chloride 0.9% 100 ml @ 100 mls/hr IV Q8H [facility] Rx#:[id number] Norepinephrine 4 mg In 10.358 Dextrose 5% 250 ml @ 8 MCG/MIN 30.48 mls/hr IV TITR PRN Rx#:[id number] Vancomycin HCl 1 gm In 195.25 Dextrose 5% 250 ml @ 165 mls/hr IV Q24H [facility] Rx#: [id number] Oral 100 10 Output: Urine 800 400 Other: # Bowel Movements 0 Active Medications: Current Medications Acetaminophen (Tylenol) 650 mg PO Q4H PRN PRN Reason: Pain or Fever >101 Acetaminophen (Tylenol 650mg Supp) 650 mg RC Q4H PRN PRN Reason: TEMP >101 Stop: 07/10/17 02:06 Al Hydrox/Mg Hydrox/Simethicone (Maalox) 30 ml PO Q4H PRN PRN Reason: GI DISTRESS Stop: 07/05/17 13:53 Albuterol Sulfate (Albuterol 2.5mg/3ml Neb Ud) 2.5 mg HHN Q6HRT [facility] Stop: 07/05/17 19:59 Last Admin: 05/12/17 06:45 Dose: 2.5 mg Albuterol/Ipratropium (Duoneb Neb) 3 ml HHN Q2HRT PRN PRN Reason: Wheezing Stop: 07/05/17 19:33 Last Admin: 05/10/17 23:40 Dose: 3 ml Amiodarone HCl (Cordarone) 200 mg PO BID [facility] Stop: 07/07/17 08:59 Last Admin: 05/11/17 18:11 Dose: 200 mg Aspirin (Ecotrin) 81 mg PO DAILY [facility] Stop: 07/06/17 08:59 Last Admin: 05/11/17 09:41 Dose: Not Given Cholecalciferol (Vitamin D3) 5,000 iu PO DAILY [facility] Stop: 07/06/17 08:59 Last Admin: 05/11/17 09:41 Dose: Not Given Diltiazem HCl (Cardizem) 20 mg IVP Q6HR PRN PRN Reason: hr above 120 Stop: 07/09/17 17:59 Last Admin: 05/10/17 20:26 Dose: 20 mg Divalproex Sodium (Depakote Sprinkle) 250 mg PO BID [facility] PRN Reason: Protocol Stop: 07/05/17 16:59 Last Admin: 05/11/17 18:10 Dose: 250 mg Donepezil HCl (Aricept) 10 mg PO DAILY [facility] Stop: 07/06/17 08:59 Last Admin: 05/11/17 09:41 Dose: Not Given Furosemide (Lasix) 40 mg IVP DAILY [facility] Stop: 07/07/17 12:44 Last Admin: 05/12/17 08:47 Dose: 40 mg Norepinephrine Bitartrate 4 mg (/ Dextrose) 254 mls @ 30.48 mls/hr IV TITR PRN ; Protocol; 8 MCG/MIN PRN Reason: BP MAINTENANCE (PER PROTOCOL) Stop: 07/03/17 09:26 Last Titration: 05/11/17 10:30 Dose: 0 mcg/min, 0 mls/hr Diltiazem HCl 125 mg/ Dextrose 125 mls @ 5 mls/hr IV TITR [facility]; 5 MG/HR PRN Reason: Protocol Stop: 07/09/17 23:29 Last Titration: 05/12/17 06:05 Dose: Infused Meropenem 500 mg/ Sodium (Chloride) 100 mls @ 100 mls/hr IV Q8H [facility] Stop: 07/10/17 01:59 Last Infusion: 05/12/17 03:10 Dose: Infused Vancomycin HCl 1 gm/ Dextrose 250 mls @ 165 mls/hr IV Q24H [facility] Stop: 07/10/17 09:59 Last Infusion: 05/11/17 16:15 Dose: 165 mls/hr Dextrose/Sodium Chloride (D5-0.9%Ns) 1,000 mls @ 40 mls/hr IV .Q24H [facility] Stop: 07/10/17 15:59 Last Admin: 05/11/17 17:08 Dose: 40 mls/hr Ipratropium [place] (Atrovent Neb 0.5mg/2.5ml) 0.5 mg HHN Q6HRT [facility] Stop: 07/05/17 19:59 Last Admin: 05/12/17 06:45 Dose: 0.5 mg Levothyroxine Sodium (Synthroid) 0.05 mg PO QDAC [facility] Stop: 07/06/17 07:29 Last Admin: 05/12/17 06:34 Dose: Not Given Lorazepam (Ativan) 0.5 mg PO Q4H PRN; Protocol PRN Reason: Anxiety Stop: 07/05/17 13:53 Last Admin: 05/12/17 01:14 Dose: 0.5 mg Magnesium Hydroxide (Milk Of Magnesia) 30 ml PO HS PRN PRN Reason: Constipation Stop: 07/05/17 13:53 Methylprednisolone Sodium Succinate (Solu-Medrol) 60 mg IVP Q6HR [facility] Stop: 07/06/17 00:00 Last Admin: 05/12/17 05:38 Dose: 60 mg Miscellaneous (Probiotic Screen) 1 ea [facility] PRN PRN PRN Reason: PROTOCOL Stop: 07/04/17 16:18 Miscellaneous (Vancomycin Iv Per Pharmacy) 1 ea MC PRN [facility] Stop: 07/10/17 01:29 Multivitamins/Vitamin C (Theragran) 1 tab PO DAILY CATHLEEN Stop: 07/06/17 08:59 Last Admin: 05/11/17 09:42 Dose: Not Given Quetiapine Fumarate (Seroquel) 25 mg PO BID CATHLEEN PRN Reason: Protocol Stop: 07/08/17 08:07 Last Admin: 05/11/17 18:11 Dose: 25 mg Tamsulosin HCl (Flomax) 0.4 mg PO DAILY CATHLEEN Stop: 07/06/17 08:59 Last Admin: 05/11/17 09:42 Dose: Not Given Zolpidem Tartrate (Ambien) 5 mg PO PRN PRN Reason: Insomnia Stop: 07/05/17 20:59 General: No acute distress HEENT: Atraumatic Neck: Supple Cardiovascular: Regular rate, Normal S1, Normal S2 Abdomen: Bowel sounds - Procedures Procedures: Procedures Procedure Code Date ASSISTANCE WITH RESPIRATORY VENTILATION, <24 HRS, CPAP [id number] 05/03/17 POS AIRWAY PRESSURE CPAP 17188 05/03/17 Assessment/Plan - Problem List Patient Problems: All Active Problems INCREASED AGITATION AND POOR ORAL INTAKE (Acute) - Assessment Assessment: 1. Pneumonia. 2. COPD. 3. Psychosis. - Plan Plan: continue icu monitoring continue iv antibiotics as per id levophed titrate as per protocol cpm Nutritional Asmnt/Malnutr-PDOC - Dietary Evaluation Malnutrition Findings (Please click <Entered> for more info): Nutritional Asmnt/Malnutrition Start: 05/08/17 15: 11 Text: Status: Complete Freq: Document 05/08/17 15:12 LCHENG (Rec: 05/08/17 15:24 [email or web address] [email or web address]) Nutritional Asmnt/Malnutrition Patient General Information Nutritional Screening Moderate Risk Diagnosis PNA, pleural effusion & sepsis Pertinent Medical Hx/Surgical Hx HTN, CAD, hypothyroid, arthritis, dementia, BPH Subjective Information Pt seen sleeping in bed at time of visit. Per notes, PO intake 30-50%. Spoke with RN, pt consumed about 50% of breakfast this morning. Per nurse notes 1.25, pt was tolerating diet well with assistance. Pt remain on Bipap . Current Diet Order/ Nutrition Support pureed Pertinent Medications vitamin d3, lasix, levaquin, synthroid, theragran, piperacillin, seroquel, Nacl 0 .9% Pertinent Labs 05/08 Na 137, K 4.2, Cl 108, BUN 23, Cr 0.8, Glucose 109, Ca 8.4 Nutritional Hx/Data Height 1.63 m Height (Calculated Centimeters) 162.6 Current Weight (lbs) 55.338 kg Weight (Calculated Kilograms) 55.3 Weight (Calculated Grams) 69976.3 [place] Body Weight 130 % [place] Body Weight 101 Body Mass Index (BMI) 20.9 Weight Status Approriate GI Symptoms GI Symptoms None Difficult in: None Skin Integrity/Comment: bruise redded to left arm, skin tear to right arm Estimated Nutritional Goals BEE in Kcals: Using Current wt Calories/Kcals/Kg 30-35 Kcals Calculated 1276-5729 Protein: Using Current wt Protein g/k.2-1.4 Protein Calculated 66-77 Fluid: ml 1650-1925ml (1ml/kcal) Nutritional Problem 1. Problem Problem inadequate food intake Etiology poor appetite Signs/Symptoms: PO intake 30-50% Malnutrition Alert Protein-Calorie Malnutrition N/A Is there a minimum of two criteria No selected? Query Text:Check all the applicable criteria. A minimum of two criteria are recommended for diagnosis of either severe or non-severe malnutrition. Intervention/Recommendation Comments 1. Recommend Boost Plus BID to increase nutrition intake. RN made aware. 2. Monitor PO intake, wt, labs and skin integrity 3. F/U as moderate risk in 3-5 days, 05/11-05/13 Expected Outcomes/Goals Expected Outcomes/Goals 1. PO intake to meet at least 75% of nutritional needs. 2. Wt stability, skin to remain intact, labs to approach WNL.
--- NOTE | 2017-05-12 10:23 | Diagnostic Imaging Report ---
Portable chest x-ray HISTORY: Shortness of breath Compared with prior exam of May 11, 2017, the heart remains enlarged. There is an increase in diffuse bilateral infiltrates most likely associated with pulmonary edema. Evidence of a right pleural effusion. IMPRESSION: 1. Slight increase in diffuse bilateral infiltrates and a right pleural effusion along with cardiomegaly. Findings suggest worsening congestive heart failure and pulmonary edema. Clinical relation needed.
[2017-05-12] MEDS: Albuterol/Ipratropium Neb 3 ML AERS HHN PRN (10:55)
--- NOTE | 2017-05-12 12:19 | Infectious Disease Prog Note ---
Infectious Disease Subjective - Review of Systems Service Date: 05/12/17 Subjective: Feeling better, there is no fever. On bipap. Infectious Disease Objective - Results Result Diagrams: 05/11/17 01:21 05/12/17 04:15 Recent Labs: Laboratory Last Values WBC 19.5 Th/cmm (4.8-10.8) H D 05/11/17 01:21 RBC 3.50 Mil/cmm (3.80-5.80) L 05/11/17 01:21 Hgb 11.6 gm/dL (12-16) L 05/11/17 01:21 Hct 34.5 % (41.0-60) L 05/11/17 01:21 MCV 98.6 fl (80-99) 05/11/17 01:21 MCH 33.1 pg (27.0-31.0) H 05/11/17 01:21 MCHC Differential 33.6 pg (28.0-36.0) 05/11/17 01:21 RDW 15.6 % (11.5-20.0) 05/11/17 01:21 Plt Count 104 Th/cmm (150-400) L 05/11/17 01:21 MPV 9.7 fl 05/11/17 01:21 Band Neutrophils % 5 % (0-10) 05/11/17 01:21 Neutrophils (Manual) 90 % (40-80) H 05/11/17 01:21 Lymphocytes 3 % (20-50) L 05/11/17 01:21 Monocytes 1 % (2-10) L 05/11/17 01:21 Eosinophils 1 % (0-5) 05/11/17 01:21 Atypical Lymphocytes 3 % 05/04/17 04:45 Hypochromia 1+ 05/04/17 04:45 Platelet Estimate SLIGHT DECREASED (NORMAL) 05/11/17 01:21 Platelet Morphology GIANT PLATELETS SEEN (NORMAL) 05/03/17 23:55 Anisocytosis 1+ 05/11/17 01:21 Microcytosis 1+ 05/04/17 04:45 Macrocytosis 1+ 05/11/17 01:21 RBC Morph Micro Appear NORMAL (NORMAL) 05/03/17 23:55 PT 17.8 SECONDS (9.5-11.5) H 05/07/17 08:00 INR 1.66 (0.5-1.4) H 05/07/17 08:00 PTT (Actin FS) 26.6 SECONDS (26.0-38.0) 05/07/17 08:00 Specimen Source ARTERIAL 05/12/17 08:45 Sample Site LEFT RADIAL 05/12/17 08:45 pH 7.57 (7.35-7.45) H* 05/12/17 08:45 pCO2 33.0 mmHg (35.0-45.0) L 05/12/17 08:45 pO2 97.0 mmHg (80.0-100.0) 05/12/17 08:45 HCO3 31.0 mEq/L (20.0-26.0) H 05/12/17 08:45 Base Excess 8.0 mEq/L (-3.0-3.0) H 05/12/17 08:45 O2 Saturation 98.0 % (92.0-100.0) 05/12/17 08:45 Tom Test Y 05/12/17 08:45 Vent Rate NA 05/12/17 08:45 Inspired O2 100 05/12/17 08:45 Tidal Volume N/A 05/12/17 08:45 PEEP N/A 05/12/17 08:45 Pressure (ins/psv/peep) N/A 05/12/17 08:45 Critical Value O.FARRIS 05/12/17 08:45 Sodium 145 mEq/L (136-145) 05/12/17 04:15 Potassium 3.8 mEq/L (3.5-5.1) 05/12/17 04:15 Chloride 110 mEq/L (98-107) H 05/12/17 04:15 Carbon Dioxide 27.0 mEq/L (21.0-31.0) 05/12/17 04:15 Anion Gap 11.8 (7.0-16.0) 05/12/17 04:15 BUN 39 mg/dL (7-25) H 05/12/17 04:15 Creatinine 1.2 mg/dL (0.7-1.3) 05/12/17 04:15 Est GFR ( Amer) TNP 05/12/17 04:15 Est GFR (Non-Af Amer) TNP 05/12/17 04:15 BUN/Creatinine Ratio 32.5 05/12/17 04:15 Glucose 148 mg/dL (70-105) H 05/12/17 04:15 Whole Bld Lactic Acid 3.46 mmol/L (0.60-1.99) H* 05/11/17 09:45 Calcium 8.1 mg/dL (8.6-10.3) L 05/12/17 04:15 Total Bilirubin 1.8 mg/dL (0.3-1.0) H 05/11/17 02:46 AST 36 U/L (13-39) 05/11/17 02:46 ALT 19 U/L (7-52) 05/11/17 02:46 Alkaline Phosphatase 34 U/L (34-104) 05/11/17 02:46 Ammonia 67 umol/L (16-53) H 05/11/17 02:46 B-Natriuretic Peptide 257.0 pg/mL (5.0-100.0) H 05/12/17 04:15 Total Protein 4.7 gm/dL (6.0-8.3) L 05/11/17 02:46 Albumin 2.5 gm/dL (4.2-5.5) L 05/11/17 02:46 Globulin 2.2 gm/dL 05/11/17 02:46 Albumin/Globulin Ratio 1.1 (1.0-1.8) 05/11/17 02:46 Urine Source RANDOM 05/11/17 02:30 Urine Color YELLOW 05/11/17 02:30 Urine Clarity HAZY (CLEAR) 05/11/17 02:30 Urine pH 5.0 (4.6 - 8.0) 05/11/17 02:30 Ur Specific [place] 1.010 (1.005-1.030) 05/11/17 02:30 Urine Protein NEGATIVE mg/dL (NEGATIVE) 05/11/17 02:30 Urine Glucose (UA) NEGATIVE mg/dL (NEGATIVE) 05/11/17 02:30 Urine Ketones NEGATIVE mg/dL (NEGATIVE) 05/11/17 02:30 Urine Blood MODERATE (NEGATIVE) H 05/11/17 02:30 Urine Nitrate NEGATIVE (NEGATIVE) 05/11/17 02:30 Urine Bilirubin NEGATIVE (NEGATIVE) 05/11/17 02:30 Urine Urobilinogen 0.2 E.U./dL (0.2 - 1.0) 05/11/17 02:30 Ur Leukocyte Esterase NEGATIVE (NEGATIVE) 05/11/17 02:30 Urine RBC 25-50 /hpf (0-5) H 05/11/17 02:30 Urine WBC 6-10 /hpf (0-5) H 05/11/17 02:30 Ur Epithelial Cells FEW /lpf (FEW) 05/11/17 02:30 Amorphous Sediment FEW URATES (NONE SEEN) 05/04/17 06:45 Urine Bacteria FEW /hpf (NONE SEEN) 05/11/17 02:30 Hyaline Casts 2-5 /lpf (0-2) H 05/11/17 02:30 Fine Granular Casts 0-2 /lpf (NONE SEEN) H 05/11/17 02:30 Random Vancomycin 14.9 ug/mL (5.0-40.0) 05/12/17 04:15 Valproic Acid 37.6 ug/mL (50.0-100.0) L 05/09/17 09:00 - Physical Exam Vitals and I&O: Vital Signs Temp 97 F 05/12/17 12:00 Pulse 99 05/12/17 12:00 Resp 18 05/12/17 12:00 BP 126/53 05/12/17 12:00 Pulse Ox 99 05/12/17 12:00 Intake & Output 05/11/17 05/12/17 05/12/17 18:59 06:59 18:59 Intake Total 504.025 425.000 288.75 Output Total 800 400 Balance 504.025 -375.000 -111.25 Weight (lbs) 73.028 kg 73.028 kg Intake: Intake, IV Amount 504.025 325.000 278.75 Diltiazem 125 mg In 143.667 125.000 Dextrose 5% 100 ml @ 5 MG /HR 5 mls/hr IV TITR [facility] Rx#:[id number] Meropenem 500 mg In 100 200 100 Sodium Chloride 0.9% 100 ml @ 100 mls/hr IV Q8H [facility] Rx#:[id number] Norepinephrine 4 mg In 10.358 Dextrose 5% 250 ml @ 8 MCG/MIN 30.48 mls/hr IV TITR PRN Rx#:[id number] Vancomycin HCl 1 gm In 250.00 178.75 Dextrose 5% 250 ml @ 165 mls/hr IV Q24H [facility] Rx#: [id number] Oral 100 10 Output: Urine 800 400 Other: # Bowel Movements 0 Active Medications: Current Medications Acetaminophen (Tylenol) 650 mg PO Q4H PRN PRN Reason: Pain or Fever >101 Acetaminophen (Tylenol 650mg Supp) 650 mg RC Q4H PRN PRN Reason: TEMP >101 Stop: 07/10/17 02:06 Al Hydrox/Mg Hydrox/Simethicone (Maalox) 30 ml PO Q4H PRN PRN Reason: GI DISTRESS Stop: 07/05/17 13:53 Albuterol Sulfate (Albuterol 2.5mg/3ml Neb Ud) 2.5 mg HHN Q6HRT [facility] Stop: 07/05/17 19:59 Last Admin: 05/12/17 06:45 Dose: 2.5 mg Albuterol/Ipratropium (Duoneb Neb) 3 ml HHN Q2HRT PRN PRN Reason: Wheezing Stop: 07/05/17 19:33 Last Admin: 05/12/17 10:55 Dose: 3 ml Amiodarone HCl (Cordarone) 200 mg PO BID [facility] Stop: 07/07/17 08:59 Last Admin: 05/11/17 18:11 Dose: 200 mg Aspirin (Ecotrin) 81 mg PO DAILY [facility] Stop: 07/06/17 08:59 Last Admin: 05/11/17 09:41 Dose: Not Given Cholecalciferol (Vitamin D3) 5,000 iu PO DAILY [facility] Stop: 07/06/17 08:59 Last Admin: 05/11/17 09:41 Dose: Not Given Diltiazem HCl (Cardizem) 20 mg IVP Q6HR PRN PRN Reason: hr above 120 Stop: 07/09/17 17:59 Last Admin: 05/10/17 20:26 Dose: 20 mg Divalproex Sodium (Depakote Sprinkle) 250 mg PO BID [facility] PRN Reason: Protocol Stop: 07/05/17 16:59 Last Admin: 05/11/17 18:10 Dose: 250 mg Donepezil HCl (Aricept) 10 mg PO DAILY [facility] Stop: 07/06/17 08:59 Last Admin: 05/11/17 09:41 Dose: Not Given Furosemide (Lasix) 40 mg IVP DAILY [facility] Stop: 07/07/17 12:44 Last Admin: 05/12/17 08:47 Dose: 40 mg Norepinephrine Bitartrate 4 mg (/ Dextrose) 254 mls @ 30.48 mls/hr IV TITR PRN ; Protocol; 8 MCG/MIN PRN Reason: BP MAINTENANCE (PER PROTOCOL) Stop: 07/03/17 09:26 Last Titration: 05/11/17 10:30 Dose: 0 mcg/min, 0 mls/hr Diltiazem HCl 125 mg/ Dextrose 125 mls @ 5 mls/hr IV TITR [facility]; 5 MG/HR PRN Reason: Protocol Stop: 07/09/17 23:29 Last Titration: 05/12/17 06:05 Dose: Infused Meropenem 500 mg/ Sodium (Chloride) 100 mls @ 100 mls/hr IV Q8H [facility] Stop: 07/10/17 01:59 Last Infusion: 05/12/17 11:30 Dose: Infused Vancomycin HCl 1 gm/ Dextrose 250 mls @ 165 mls/hr IV Q24H [facility] Stop: 07/10/17 09:59 Last Infusion: 05/12/17 11:05 Dose: 0 mls/hr Dextrose/Sodium Chloride (D5-0.9%Ns) 1,000 mls @ 40 mls/hr IV .Q24H [facility] Stop: 07/10/17 15:59 Last Admin: 05/11/17 17:08 Dose: 40 mls/hr Ipratropium [place] (Atrovent Neb 0.5mg/2.5ml) 0.5 mg HHN Q6HRT [facility] Stop: 07/05/17 19:59 Last Admin: 05/12/17 06:45 Dose: 0.5 mg Levothyroxine Sodium (Synthroid) 0.05 mg PO QDAC [facility] Stop: 07/06/17 07:29 Last Admin: 05/12/17 06:34 Dose: Not Given Lorazepam (Ativan) 0.5 mg PO Q4H PRN; Protocol PRN Reason: Anxiety Stop: 07/05/17 13:53 Last Admin: 05/12/17 01:14 Dose: 0.5 mg Magnesium Hydroxide (Milk Of Magnesia) 30 ml PO HS PRN PRN Reason: Constipation Stop: 07/05/17 13:53 Methylprednisolone Sodium Succinate (Solu-Medrol) 60 mg IVP Q6HR [facility] Stop: 07/06/17 00:00 Last Admin: 05/12/17 11:36 Dose: 60 mg Miscellaneous (Probiotic Screen) 1 ea PRN PRN PRN Reason: PROTOCOL Stop: 07/04/17 16:18 Miscellaneous (Vancomycin Iv Per Pharmacy) 1 ea PRN [facility] Stop: 07/10/17 01:29 Multivitamins/Vitamin C (Theragran) 1 tab PO DAILY [facility] Stop: 07/06/17 08:59 Last Admin: 05/11/17 09:42 Dose: Not Given Quetiapine Fumarate (Seroquel) 25 mg PO BID [facility] PRN Reason: Protocol Stop: 07/08/17 08:07 Last Admin: 05/11/17 18:11 Dose: 25 mg Tamsulosin HCl (Flomax) 0.4 mg PO DAILY [facility] Stop: 07/06/17 08:59 Last Admin: 05/11/17 09:42 Dose: Not Given Zolpidem Tartrate (Ambien) 5 mg PO HS PRN PRN Reason: Insomnia Stop: 07/05/17 20:59 General: no acute distress, well developed, well nourished HEENT: atraumatic, normocephalic, PERRLA, EOMI Neck: supple, no thyromegaly Cardiovascular: S1S2, regular Lungs: clear to auscultation bilaterally, clear to percussion Abdomen: soft, no tender, no distended Extremities: no cyanosis, no clubbing, no edema Neurological: awake, alert, oriented - Procedures Procedures: Procedures Procedure Code Date ASSISTANCE WITH RESPIRATORY VENTILATION, <24 HRS, CPAP [id number] 05/03/17 POS AIRWAY PRESSURE CPAP 17213 05/03/17 Infectious Disease Assmt/Plan - Problem List Patient Problems: All Active Problems INCREASED AGITATION AND POOR ORAL INTAKE (Acute) - Assessment Assessment: 1, Pneumonia - Plan Plan: continue vanco and meropenem. Nutritional Asmnt/Malnutr-PDOC - Dietary Evaluation Malnutrition Findings (Please click <Entered> for more info): Nutritional Asmnt/Malnutrition Start: 05/08/17 15: 11 Text: Status: Complete Freq: Document 05/08/17 15:12 HEN (Rec: 05/08/17 15:24 TATO [id number]) Nutritional Asmnt/Malnutrition Patient General Information Nutritional Screening Moderate Risk Diagnosis PNA, pleural effusion & sepsis Pertinent Medical Hx/Surgical Hx HTN, CAD, hypothyroid, arthritis, dementia, BPH Subjective Information Pt seen sleeping in bed at time of visit. Per notes, PO intake 30-50%. Spoke with RN, pt consumed about 50% of breakfast this morning. Per nurse notes 05.08, pt was tolerating diet well with assistance. Pt remain on Bipap . Current Diet Order/ Nutrition Support pureed Pertinent Medications vitamin d3, lasix, levaquin, synthroid, theragran, piperacillin, seroquel, Nacl 0 .9% Pertinent Labs 05/08 Na 137, K 4.2, Cl 108, BUN 23, Cr 0.8, Glucose 109, Ca 8.4 Nutritional Hx/Data Height 1.63 m Height (Calculated Centimeters) 162.6 Current Weight (lbs) 55.338 kg Weight (Calculated Kilograms) 55.3 Weight (Calculated Grams) 47571.3 Dwarf Body Weight 130 % Dwarf Body Weight 101 Body Mass Index (BMI) 20.9 Weight Status Approriate GI Symptoms GI Symptoms None Difficult in: None Skin Integrity/Comment: bruise redded to left arm, skin tear to right arm Estimated Nutritional Goals BEE in Kcals: Using Current wt Calories/Kcals/Kg 30-35 Kcals Calculated 2559-5907 Protein: Using Current wt Protein g/k.2-1.4 Protein Calculated 66-77 Fluid: ml 1650-1925ml (1ml/kcal) Nutritional Problem 1. Problem Problem inadequate food intake Etiology poor appetite Signs/Symptoms: PO intake 30-50% Malnutrition Alert Protein-Calorie Malnutrition N/A Is there a minimum of two criteria No selected? Query Text:Check all the applicable criteria. A minimum of two criteria are recommended for diagnosis of either severe or non-severe malnutrition. Intervention/Recommendation Comments 1. Recommend Boost Plus BID to increase nutrition intake. RN made aware. 2. Monitor PO intake, wt, labs and skin integrity 3. F/U as moderate risk in 3-5 days, 05/11-05/13 Expected Outcomes/Goals Expected Outcomes/Goals 1. PO intake to meet at least 75% of nutritional needs. 2. Wt stability, skin to remain intact, labs to approach WNL.
[2017-05-12] MEDS: Multivitamin Tab PO SCH (12:44)
--- NOTE | 2017-05-12 13:30 | Diagnostic Imaging Report ---
Exam: Portable chest x-ray. HISTORY: NG tube placement. Findings: Portable initially chest at 1154 hours reviewed compatible prior study the same day earlier demonstrates interval placement of the NG tube with the tip in the stomach.
[2017-05-12] MEDS: D5-0.9%NS 1,000 ML IV SCH (17:04)
[2017-05-12] MEDS ORDERED: Diltiazem 5 mg/mL 25mL Vial IV ONE (19:31)
[2017-05-13] MEDS ORDERED: Diltiazem 5 mg/mL 25mL Vial IV ONE (00:03)
[2017-05-13] MEDS: Meropenem 500 MG in Sodium Chloride 0.9% 100 ML IV SCH ×3 (02:02→17:08)
[2017-05-13] MEDS: Ipratropium Neb 0.5 mg/2.5 mL UD HHN SCH ×5 (04:14→19:25)
[2017-05-13] MEDS: Albuterol Nebulizer 2.5mg/3mL HHN SCH ×4 (04:17→19:25)
[2017-05-13] MEDS: Levothyroxine 0.05 Mg Tab PO SCH (06:38)
[2017-05-13 08:32] LABS: BASOPHILE ABSOLUTE 0.2 Th/cumm (0-0.2); EOSINOPHILE ABSOLUTE 0.1 Th/cmm (0.1-0.4); HEMATOCRIT 31.3 % (41.0-60); HEMOGLOBIN 10.5 gm/dL (12-16); LYMPHOCYTE ABSOLUTE 1.5 Th/cmm (1.5-3.0); MEAN CELL VOLUME 99.9 fl (80-99); MEAN CORPUSCULAR HEMOGLOBIN 33.6 pg (27.0-31.0); MEAN CORPUSCULAR HGB CONC 33.6 pg (28.0-36.0); MEAN PLATELET VOLUME 9.9 fl; MONOCYTE ABSOLUTE 0.2 Th/cmm (0.3-1.0); NEUTROPHILE ABSOLUTE 25.1 Th/cmm (1.8-8.0); RED BLOOD COUNT 3.13 Mil/cmm (3.80-5.80); RED CELL DISTRIBUTION WIDTH 17.4 % (11.5-20.0)
[2017-05-13 08:55] LABS: WHITE BLOOD COUNT 27.1 Th/cmm (4.8-10.8)
[2017-05-13 08:56] LABS: PLATELET COUNT 61 Th/cmm (150-400)
[2017-05-13 08:57] LABS: ALB/GLOB RATIO 1.2 (1.0-1.8); ALBUMIN 2.4 gm/dL (4.2-5.5); ALKALINE PHOSPHATASE 43 U/L (34-104); ANION GAP 11.8 (7.0-16.0); BILIRUBIN,TOTAL 3.1 mg/dL (0.3-1.0); BUN - UREA NITROGEN 50 mg/dL (7-25); CARBON DIOXIDE 27.3 mEq/L (21.0-31.0); CHLORIDE 111 mEq/L (98-107); CREATININE - SERUM 1.4 mg/dL (0.7-1.3); GLUCOSE 136 mg/dL (70-105); POTASSIUM SERUM 4.1 mEq/L (3.5-5.1); SGOT 37 U/L (13-39); SGPT/ALT 19 U/L (7-52); SODIUM SERUM 146 mEq/L (136-145); TOTAL PROTEIN,SERUM 4.4 gm/dL (6.0-8.3)
[2017-05-13] MEDS: Multivitamin Tab PO SCH (09:05)
[2017-05-13 10:06] LABS: BAND NEUTROPHILE 12 % (0-10); LYMPHOCYTE 6 % (20-50); MONOCYTE 4 % (2-10); NEUTROPHILS 78 % (40-80); TOTAL CELLS COUNTED 100
[2017-05-13 10:08] LABS: PLATELET ESTIMATE ADEQUATE (NORMAL)
--- NOTE | 2017-05-13 10:31 | Diagnostic Imaging Report ---
KUB single view HISTORY: Abdominal pain, rule out fecal impaction COMPARISON: Chest performed on 05/07/2017 FINDINGS: NG tube is seen within stomach. Moderate stool is seen throughout the colon with mild distal fecal impaction. Calcifications of the right upper quadrant are noted. Advanced degenerative changes of spine are noted. IMPRESSION: Moderate amount of stool with mild distal fecal impaction. Overall the bowel gas pattern is nonspecific. Right upper quadrant calcifications which may represent gallstones. Ultrasound would further clarify.
--- NOTE | 2017-05-13 15:37 | Internal Medicine Prog Note ---
Internal Medicine Subjective - Subjective Service Date: 05/13/17 Patient seen and examined:: with staff Patient is:: awake Per staff patient has:: tolerating meds Internal Medicine Objective - Results Result Diagrams: 05/13/17 08:24 05/13/17 08:24 Recent Labs: Laboratory Last Values WBC 27.1 Th/cmm (4.8-10.8) H* D 05/13/17 08:24 RBC 3.13 Mil/cmm (3.80-5.80) L 05/13/17 08:24 Hgb 10.5 gm/dL (12-16) L 05/13/17 08:24 Hct 31.3 % (41.0-60) L 05/13/17 08:24 MCV 99.9 fl (80-99) H 05/13/17 08:24 MCH 33.6 pg (27.0-31.0) H 05/13/17 08:24 MCHC Differential 33.6 pg (28.0-36.0) 05/13/17 08:24 RDW 17.4 % (11.5-20.0) 05/13/17 08:24 Plt Count 61 Th/cmm (150-400) L D 05/13/17 08:24 MPV 9.9 fl 05/13/17 08:24 Band Neutrophils % 12 % (0-10) H 05/13/17 08:24 Neutrophils (Manual) 78 % (40-80) 05/13/17 08:24 Lymphocytes 6 % (20-50) L 05/13/17 08:24 Monocytes 4 % (2-10) 05/13/17 08:24 Eosinophils 1 % (0-5) 05/11/17 01:21 Atypical Lymphocytes 3 % 05/04/17 04:45 Hypochromia 1+ 05/04/17 04:45 Platelet Estimate ADEQUATE (NORMAL) 05/13/17 08:24 Platelet Morphology GIANT PLATELETS SEEN (NORMAL) 05/03/17 23:55 Anisocytosis 1+ 05/11/17 01:21 Microcytosis 1+ 05/04/17 04:45 Macrocytosis 1+ 05/11/17 01:21 RBC Morph Micro Appear NORMAL (NORMAL) 05/03/17 23:55 PT 17.8 SECONDS (9.5-11.5) H 05/07/17 08:00 INR 1.66 (0.5-1.4) H 05/07/17 08:00 PTT (Actin FS) 26.6 SECONDS (26.0-38.0) 05/07/17 08:00 Specimen Source ARTERIAL 05/12/17 08:45 Sample Site LEFT RADIAL 05/12/17 08:45 pH 7.57 (7.35-7.45) H* 05/12/17 08:45 pCO2 33.0 mmHg (35.0-45.0) L 05/12/17 08:45 pO2 97.0 mmHg (80.0-100.0) 05/12/17 08:45 HCO3 31.0 mEq/L (20.0-26.0) H 05/12/17 08:45 Base Excess 8.0 mEq/L (-3.0-3.0) H 05/12/17 08:45 O2 Saturation 98.0 % (92.0-100.0) 05/12/17 08:45 Tom Test Y 05/12/17 08:45 Vent Rate NA 05/12/17 08:45 Inspired O2 100 05/12/17 08:45 Tidal Volume N/A 05/12/17 08:45 PEEP N/A 05/12/17 08:45 Pressure (ins/psv/peep) N/A 05/12/17 08:45 Critical Value O.FARRIS 05/12/17 08:45 Sodium 146 mEq/L (136-145) H 05/13/17 08:24 Potassium 4.1 mEq/L (3.5-5.1) 05/13/17 08:24 Chloride 111 mEq/L (98-107) H 05/13/17 08:24 Carbon Dioxide 27.3 mEq/L (21.0-31.0) 05/13/17 08:24 Anion Gap 11.8 (7.0-16.0) 05/13/17 08:24 BUN 50 mg/dL (7-25) H 05/13/17 08:24 Creatinine 1.4 mg/dL (0.7-1.3) H 05/13/17 08:24 Est GFR ( Amer) TNP 05/13/17 08:24 Est GFR (Non-Af Amer) TNP 05/13/17 08:24 BUN/Creatinine Ratio 35.7 05/13/17 08:24 Glucose 136 mg/dL (70-105) H 05/13/17 08:24 Whole Bld Lactic Acid 3.46 mmol/L (0.60-1.99) H* 05/11/17 09:45 Calcium 8.0 mg/dL (8.6-10.3) L 05/13/17 08:24 Magnesium 2.2 mg/dL (1.9-2.7) 05/13/17 08:24 Total Bilirubin 3.1 mg/dL (0.3-1.0) H 05/13/17 08:24 AST 37 U/L (13-39) 05/13/17 08:24 ALT 19 U/L (7-52) 05/13/17 08:24 Alkaline Phosphatase 43 U/L (34-104) 05/13/17 08:24 Ammonia 67 umol/L (16-53) H 05/11/17 02:46 B-Natriuretic Peptide 257.0 pg/mL (5.0-100.0) H 05/12/17 04:15 Total Protein 4.4 gm/dL (6.0-8.3) L 05/13/17 08:24 Albumin 2.4 gm/dL (4.2-5.5) L 05/13/17 08:24 Globulin 2.0 gm/dL 05/13/17 08:24 Albumin/Globulin Ratio 1.2 (1.0-1.8) 05/13/17 08:24 Urine Source RANDOM 05/11/17 02:30 Urine Color YELLOW 05/11/17 02:30 Urine Clarity HAZY (CLEAR) 05/11/17 02:30 Urine pH 5.0 (4.6 - 8.0) 05/11/17 02:30 Ur Specific [place] 1.010 (1.005-1.030) 05/11/17 02:30 Urine Protein NEGATIVE mg/dL (NEGATIVE) 05/11/17 02:30 Urine Glucose (UA) NEGATIVE mg/dL (NEGATIVE) 05/11/17 02:30 Urine Ketones NEGATIVE mg/dL (NEGATIVE) 05/11/17 02:30 Urine Blood MODERATE (NEGATIVE) H 05/11/17 02:30 Urine Nitrate NEGATIVE (NEGATIVE) 05/11/17 02:30 Urine Bilirubin NEGATIVE (NEGATIVE) 05/11/17 02:30 Urine Urobilinogen 0.2 E.U./dL (0.2 - 1.0) 05/11/17 02:30 Ur Leukocyte Esterase NEGATIVE (NEGATIVE) 05/11/17 02:30 Urine RBC 25-50 /hpf (0-5) H 05/11/17 02:30 Urine WBC 6-10 /hpf (0-5) H 05/11/17 02:30 Ur Epithelial Cells FEW /lpf (FEW) 05/11/17 02:30 Amorphous Sediment FEW URATES (NONE SEEN) 05/04/17 06:45 Urine Bacteria FEW /hpf (NONE SEEN) 05/11/17 02:30 Hyaline Casts 2-5 /lpf (0-2) H 05/11/17 02:30 Fine Granular Casts 0-2 /lpf (NONE SEEN) H 05/11/17 02:30 Random Vancomycin 14.9 ug/mL (5.0-40.0) 05/12/17 04:15 Valproic Acid 37.6 ug/mL (50.0-100.0) L 05/09/17 09:00 - Physical Exam Vitals and I&O: Vital Signs Temp 97 F 05/13/17 08:00 Pulse 96 05/13/17 14:00 Resp 29 05/13/17 13:43 BP 104/42 05/13/17 14:00 Pulse Ox 92 05/13/17 13:43 Intake & Output 05/12/17 05/13/17 05/13/17 18:59 06:59 18:59 Intake Total 1517.333 370.625 166 Output Total 850 250 Balance 667.333 120.625 166 Weight (lbs) 172 lb 172 lb Intake: Intake, IV Amount 1307.333 370.625 166 D5-0.9%Ns 1,000 ml @ 40 957.333 mls/hr IV .Q24H [facility] Rx#: [id number] Diltiazem 125 mg In 170.625 66 Dextrose 5% 100 ml @ 5 MG /HR 5 mls/hr IV TITR [facility] Rx#:[id number] Meropenem 500 mg In 100 200 100 Sodium Chloride 0.9% 100 ml @ 100 mls/hr IV Q8H [facility] Rx#:[id number] Vancomycin HCl 1 gm In 250 Dextrose 5% 250 ml @ 165 mls/hr IV Q24H [facility] Rx#: [id number] Oral 10 Other 200 Output: Urine 850 250 Other: # Bowel Movements 0 0 Active Medications: Current Medications Acetaminophen (Tylenol) 650 mg PO Q4H PRN PRN Reason: Pain or Fever >101 Acetaminophen (Tylenol 650mg Supp) 650 mg RC Q4H PRN PRN Reason: TEMP >101 Stop: 07/10/17 02:06 Al Hydrox/Mg Hydrox/Simethicone (Maalox) 30 ml PO Q4H PRN PRN Reason: GI DISTRESS Stop: 07/05/17 13:53 Albuterol Sulfate (Albuterol 2.5mg/3ml Neb Ud) 2.5 mg HHN Q6HRT [facility] Stop: 07/05/17 19:59 Last Admin: 05/13/17 13:43 Dose: 2.5 mg Albuterol/Ipratropium (Duoneb Neb) 3 ml HHN Q2HRT PRN PRN Reason: Wheezing Stop: 07/05/17 19:33 Last Admin: 05/12/17 10:55 Dose: 3 ml Amiodarone HCl (Cordarone) 200 mg PO BID [facility] Stop: 07/07/17 08:59 Last Admin: 05/13/17 09:05 Dose: 200 mg Aspirin (Ecotrin) 81 mg PO DAILY [facility] Stop: 07/06/17 08:59 Last Admin: 05/13/17 09:05 Dose: 81 mg Cholecalciferol (Vitamin D3) 5,000 iu PO DAILY [facility] Stop: 07/06/17 08:59 Last Admin: 05/13/17 09:04 Dose: 5,000 iu Diltiazem HCl (Cardizem) 20 mg IVP Q6HR PRN PRN Reason: hr above 120 Stop: 07/09/17 17:59 Last Admin: 05/10/17 20:26 Dose: 20 mg Divalproex Sodium (Depakote Sprinkle) 250 mg PO BID [facility] PRN Reason: Protocol Stop: 07/05/17 16:59 Last Admin: 05/13/17 09:07 Dose: 250 mg Donepezil HCl (Aricept) 10 mg PO DAILY [facility] Stop: 07/06/17 08:59 Last Admin: 05/13/17 09:05 Dose: 10 mg Furosemide (Lasix) 40 mg IVP DAILY [facility] Stop: 07/07/17 12:44 Last Admin: 05/13/17 09:06 Dose: 40 mg Norepinephrine Bitartrate 4 mg (/ Dextrose) 254 mls @ 30.48 mls/hr IV TITR PRN ; Protocol; 8 MCG/MIN PRN Reason: BP MAINTENANCE (PER PROTOCOL) Stop: 07/03/17 09:26 Last Titration: 05/11/17 10:30 Dose: 0 mcg/min, 0 mls/hr Diltiazem HCl 125 mg/ Dextrose 125 mls @ 5 mls/hr IV TITR [facility]; 5 MG/HR PRN Reason: Protocol Stop: 07/09/17 23:29 Last Admin: 05/13/17 11:04 Dose: 15 mg/hr, 15 mls/hr Meropenem 500 mg/ Sodium (Chloride) 100 mls @ 100 mls/hr IV Q8H [facility] Stop: 07/10/17 01:59 Last Infusion: 05/13/17 10:05 Dose: Infused Vancomycin HCl 1 gm/ Dextrose 250 mls @ 165 mls/hr IV Q24H [facility] Stop: 07/10/17 09:59 Last Admin: 05/13/17 10:55 Dose: 165 mls/hr Dextrose/Sodium Chloride (D5-0.9%Ns) 1,000 mls @ 40 mls/hr IV .Q24H [facility] Stop: 07/10/17 15:59 Last Admin: 05/12/17 17:04 Dose: 40 mls/hr Ipratropium [place] (Atrovent Neb 0.5mg/2.5ml) 0.5 mg HHN Q6HRT CATHLEEN Stop: 07/05/17 19:59 Last Admin: 05/13/17 13:43 Dose: 0.5 mg Levothyroxine Sodium (Synthroid) 0.05 mg PO QDAC CATHLEEN Stop: 07/06/17 07:29 Last Admin: 05/13/17 06:38 Dose: Not Given Lorazepam (Ativan) 0.5 mg PO Q4H PRN; Protocol PRN Reason: Anxiety Stop: 07/05/17 13:53 Last Admin: 05/13/17 09:07 Dose: 0.5 mg Magnesium Hydroxide (Milk Of Magnesia) 30 ml PO HS PRN PRN Reason: Constipation Stop: 07/05/17 13:53 Methylprednisolone Sodium Succinate (Solu-Medrol) 60 mg IVP Q6HR CATHLEEN Stop: 07/06/17 00:00 Last Admin: 05/13/17 12:00 Dose: 60 mg Miscellaneous (Probiotic Screen) 1 ea PRN PRN PRN Reason: PROTOCOL Stop: 07/04/17 16:18 Miscellaneous (Vancomycin Iv Per Pharmacy) 1 ea PRN CATHLEEN Stop: 07/10/17 01:29 Multivitamins/Vitamin C (Theragran) 1 tab PO DAILY CATHLEEN Stop: 07/06/17 08:59 Last Admin: 05/13/17 09:05 Dose: 1 tab Quetiapine Fumarate (Seroquel) 25 mg PO BID CATHLEEN PRN Reason: Protocol Stop: 07/08/17 08:07 Last Admin: 05/13/17 09:05 Dose: 25 mg Tamsulosin HCl (Flomax) 0.4 mg PO DAILY CATHLEEN Stop: 07/06/17 08:59 Last Admin: 05/13/17 09:05 Dose: 0.4 mg Zolpidem Tartrate (Ambien) 5 mg PO HS PRN PRN Reason: Insomnia Stop: 07/05/17 20:59 General: weak HEENT: NC/AT Neck: Supple Lungs: CTAB Cardiovascular: RRR Abdomen: non-tender - Procedures Procedures: Procedures Procedure Code Date ASSISTANCE WITH RESPIRATORY VENTILATION, <24 HRS, CPAP [id number] 05/03/17 POS AIRWAY PRESSURE CPAP [id number] 05/03/17 Internal Medicine Assmt/Plan - Assessment Assessment: 1. Pneumonia. 2. COPD. 3. Psychosis. - Plan Plan: CONTINUE IVABX PER ID FOLLOW UP LABS IN AM CPM Nutritional Asmnt/Malnutr-PDOC - Dietary Evaluation Malnutrition Findings (Please click <Entered> for more info): Nutritional Asmnt/Malnutrition Start: 05/08/17 15: 11 Text: Status: Complete Freq: Document 05/08/17 15:12 RAMAHENG (Rec: 05/08/17 15:24 [email or web address] [email or web address]) Nutritional Asmnt/Malnutrition Patient General Information Nutritional Screening Moderate Risk Diagnosis PNA, pleural effusion & sepsis Pertinent Medical Hx/Surgical Hx HTN, CAD, hypothyroid, arthritis, dementia, BPH Subjective Information Pt seen sleeping in bed at time of visit. Per notes, PO intake 30-50%. Spoke with RN, pt consumed about 50% of breakfast this morning. Per nurse notes 1., pt was tolerating diet well with assistance. Pt remain on Bipap . Current Diet Order/ Nutrition Support pureed Pertinent Medications vitamin d3, lasix, levaquin, synthroid, theragran, piperacillin, seroquel, Nacl 0 .9% Pertinent Labs 05/08 Na 137, K 4.2, Cl 108, BUN 23, Cr 0.8, Glucose 109, Ca 8.4 Nutritional Hx/Data Height 5 ft 4 in Height (Calculated Centimeters) 162.6 Current Weight (lbs) 122 lb Weight (Calculated Kilograms) 55.3 Weight (Calculated Grams) 43230.3 Bradley Body Weight 130 % Bradley Body Weight 101 Body Mass Index (BMI) 20.9 Weight Status Approriate GI Symptoms GI Symptoms None Difficult in: None Skin Integrity/Comment: bruise redded to left arm, skin tear to right arm Estimated Nutritional Goals BEE in Kcals: Using Current wt Calories/Kcals/Kg 30-35 Kcals Calculated 3749-5860 Protein: Using Current wt Protein g/k.2-1.4 Protein Calculated 66-77 Fluid: ml 1650-1925ml (1ml/kcal) Nutritional Problem 1. Problem Problem inadequate food intake Etiology poor appetite Signs/Symptoms: PO intake 30-50% Malnutrition Alert Protein-Calorie Malnutrition N/A Is there a minimum of two criteria No selected? Query Text:Check all the applicable criteria. A minimum of two criteria are recommended for diagnosis of either severe or non-severe malnutrition. Intervention/Recommendation Comments 1. Recommend Boost Plus BID to increase nutrition intake. RN made aware. 2. Monitor PO intake, wt, labs and skin integrity 3. F/U as moderate risk in 3-5 days, 05/11-05/13 Expected Outcomes/Goals Expected Outcomes/Goals 1. PO intake to meet at least 75% of nutritional needs. 2. Wt stability, skin to remain intact, labs to approach WNL.
[2017-05-13] MEDS: D5-0.9%NS 1,000 ML IV SCH (17:09)
[2017-05-14] MEDS: Albuterol/Ipratropium Neb 3 ML AERS HHN PRN ×4 (02:21→11:48)
[2017-05-14] MEDS: Meropenem 500 MG in Sodium Chloride 0.9% 100 ML IV SCH ×3 (02:35→17:55)
[2017-05-14] MEDS: Levothyroxine 0.05 Mg Tab PO SCH (06:55)
[2017-05-14] MEDS: Ipratropium Neb 0.5 mg/2.5 mL UD HHN SCH ×3 (08:02→19:10)
[2017-05-14] MEDS: Albuterol Nebulizer 2.5mg/3mL HHN SCH ×3 (08:02→19:10)
[2017-05-14 08:32] LABS: HEMATOCRIT 30.4 % (41.0-60); HEMOGLOBIN 10.5 gm/dL (12-16); MEAN CORPUSCULAR HEMOGLOBIN 34.3 pg (27.0-31.0); MEAN CORPUSCULAR HGB CONC 34.7 pg (28.0-36.0); MONOCYTE ABSOLUTE 0.4 Th/cmm (0.3-1.0); NEUTROPHILE ABSOLUTE 30.4 Th/cmm (1.8-8.0); RED BLOOD COUNT 3.07 Mil/cmm (3.80-5.80); RED CELL DISTRIBUTION WIDTH 17.6 % (11.5-20.0)
[2017-05-14 08:34] LABS: WHITE BLOOD COUNT 31.8 Th/cmm (4.8-10.8)
[2017-05-14 08:35] LABS: PLATELET COUNT 41 Th/cmm (150-400)
[2017-05-14 08:38] LABS: ANION GAP 13.6 (7.0-16.0); BUN - UREA NITROGEN 65 mg/dL (7-25); CALCIUM SERUM 8.1 mg/dL (8.6-10.3); CARBON DIOXIDE 26.5 mEq/L (21.0-31.0); CHLORIDE 114 mEq/L (98-107); GLUCOSE 128 mg/dL (70-105); POTASSIUM SERUM 4.1 mEq/L (3.5-5.1); SODIUM SERUM 150 mEq/L (136-145)
[2017-05-14] MEDS: Multivitamin Tab PO SCH (09:25)
[2017-05-14 09:34] LABS: CREATININE - SERUM 1.8 mg/dL (0.7-1.3)
[2017-05-14 09:36] LABS: ANISOCYTOSIS 1+; BAND NEUTROPHILE 10 % (0-10); LYMPHOCYTE 2 % (20-50); NEUTROPHILS 88 % (40-80); PLATELET ESTIMATE DECREASED PLATELETS (NORMAL); TOTAL CELLS COUNTED 100
--- NOTE | 2017-05-14 09:54 | General Progress Note ---
Subjective - Review of Systems Events since last encounter: comfortable with no signs of pain Objective - Results Result Diagrams: 05/14/17 08:00 05/14/17 08:00 Recent Labs: Laboratory Last Values WBC 31.8 Th/cmm (4.8-10.8) H* 05/14/17 08:00 RBC 3.07 Mil/cmm (3.80-5.80) L 05/14/17 08:00 Hgb 10.5 gm/dL (12-16) L 05/14/17 08:00 Hct 30.4 % (41.0-60) L 05/14/17 08:00 MCV 99.0 fl (80-99) 05/14/17 08:00 MCH 34.3 pg (27.0-31.0) H 05/14/17 08:00 MCHC Differential 34.7 pg (28.0-36.0) 05/14/17 08:00 RDW 17.6 % (11.5-20.0) 05/14/17 08:00 Plt Count 41 Th/cmm (150-400) L D 05/14/17 08:00 MPV 10.0 fl 05/14/17 08:00 Band Neutrophils % 10 % (0-10) 05/14/17 08:00 Neutrophils (Manual) 88 % (40-80) H 05/14/17 08:00 Lymphocytes 2 % (20-50) L 05/14/17 08:00 Monocytes 4 % (2-10) 05/13/17 08:24 Eosinophils 1 % (0-5) 05/11/17 01:21 Atypical Lymphocytes 3 % 05/04/17 04:45 Hypochromia 1+ 05/04/17 04:45 Platelet Estimate DECREASED PLATELETS (NORMAL) 05/14/17 08:00 Platelet Morphology GIANT PLATELETS SEEN (NORMAL) 05/03/17 23:55 Anisocytosis 1+ 05/14/17 08:00 Microcytosis 1+ 05/14/17 08:00 Macrocytosis 1+ 05/11/17 01:21 RBC Morph Micro Appear NORMAL (NORMAL) 05/03/17 23:55 PT 17.8 SECONDS (9.5-11.5) H 05/07/17 08:00 INR 1.66 (0.5-1.4) H 05/07/17 08:00 PTT (Actin FS) 26.6 SECONDS (26.0-38.0) 05/07/17 08:00 Specimen Source ARTERIAL 05/12/17 08:45 Sample Site LEFT RADIAL 05/12/17 08:45 pH 7.57 (7.35-7.45) H* 05/12/17 08:45 pCO2 33.0 mmHg (35.0-45.0) L 05/12/17 08:45 pO2 97.0 mmHg (80.0-100.0) 05/12/17 08:45 HCO3 31.0 mEq/L (20.0-26.0) H 05/12/17 08:45 Base Excess 8.0 mEq/L (-3.0-3.0) H 05/12/17 08:45 O2 Saturation 98.0 % (92.0-100.0) 05/12/17 08:45 Tom Test Y 05/12/17 08:45 Vent Rate NA 05/12/17 08:45 Inspired O2 100 05/12/17 08:45 Tidal Volume N/A 05/12/17 08:45 PEEP N/A 05/12/17 08:45 Pressure (ins/psv/peep) N/A 05/12/17 08:45 Critical Value O.FARRIS 05/12/17 08:45 Sodium 150 mEq/L (136-145) H 05/14/17 08:00 Potassium 4.1 mEq/L (3.5-5.1) 05/14/17 08:00 Chloride 114 mEq/L (98-107) H 05/14/17 08:00 Carbon Dioxide 26.5 mEq/L (21.0-31.0) 05/14/17 08:00 Anion Gap 13.6 (7.0-16.0) 05/14/17 08:00 BUN 65 mg/dL (7-25) H 05/14/17 08:00 Creatinine 1.8 mg/dL (0.7-1.3) H 05/14/17 08:00 Est GFR ( Amer) TNP 05/14/17 08:00 Est GFR (Non-Af Amer) TNP 05/14/17 08:00 BUN/Creatinine Ratio 36.1 05/14/17 08:00 Glucose 128 mg/dL (70-105) H 05/14/17 08:00 Whole Bld Lactic Acid 3.46 mmol/L (0.60-1.99) H* 05/11/17 09:45 Calcium 8.1 mg/dL (8.6-10.3) L 05/14/17 08:00 Magnesium 2.2 mg/dL (1.9-2.7) 05/13/17 08:24 Total Bilirubin 3.1 mg/dL (0.3-1.0) H 05/13/17 08:24 AST 37 U/L (13-39) 05/13/17 08:24 ALT 19 U/L (7-52) 05/13/17 08:24 Alkaline Phosphatase 43 U/L (34-104) 05/13/17 08:24 Ammonia 67 umol/L (16-53) H 05/11/17 02:46 B-Natriuretic Peptide 257.0 pg/mL (5.0-100.0) H 05/12/17 04:15 Total Protein 4.4 gm/dL (6.0-8.3) L 05/13/17 08:24 Albumin 2.4 gm/dL (4.2-5.5) L 05/13/17 08:24 Globulin 2.0 gm/dL 05/13/17 08:24 Albumin/Globulin Ratio 1.2 (1.0-1.8) 05/13/17 08:24 Urine Source RANDOM 05/11/17 02:30 Urine Color YELLOW 05/11/17 02:30 Urine Clarity HAZY (CLEAR) 05/11/17 02:30 Urine pH 5.0 (4.6 - 8.0) 05/11/17 02:30 Ur Specific [place] 1.010 (1.005-1.030) 05/11/17 02:30 Urine Protein NEGATIVE mg/dL (NEGATIVE) 05/11/17 02:30 Urine Glucose (UA) NEGATIVE mg/dL (NEGATIVE) 05/11/17 02:30 Urine Ketones NEGATIVE mg/dL (NEGATIVE) 05/11/17 02:30 Urine Blood MODERATE (NEGATIVE) H 05/11/17 02:30 Urine Nitrate NEGATIVE (NEGATIVE) 05/11/17 02:30 Urine Bilirubin NEGATIVE (NEGATIVE) 05/11/17 02:30 Urine Urobilinogen 0.2 E.U./dL (0.2 - 1.0) 05/11/17 02:30 Ur Leukocyte Esterase NEGATIVE (NEGATIVE) 05/11/17 02:30 Urine RBC 25-50 /hpf (0-5) H 05/11/17 02:30 Urine WBC 6-10 /hpf (0-5) H 05/11/17 02:30 Ur Epithelial Cells FEW /lpf (FEW) 05/11/17 02:30 Amorphous Sediment FEW URATES (NONE SEEN) 05/04/17 06:45 Urine Bacteria FEW /hpf (NONE SEEN) 05/11/17 02:30 Hyaline Casts 2-5 /lpf (0-2) H 05/11/17 02:30 Fine Granular Casts 0-2 /lpf (NONE SEEN) H 05/11/17 02:30 Vancomycin Trough 23.2 ug/mL (10-20) H 05/14/17 08:00 Random Vancomycin 14.9 ug/mL (5.0-40.0) 05/12/17 04:15 Valproic Acid 37.6 ug/mL (50.0-100.0) L 05/09/17 09:00 - Physical Exam Vitals and I&O: Vital Signs Temp 96.8 F 05/14/17 07:00 Pulse 111 05/14/17 09:25 Resp 26 05/14/17 09:46 BP 128/62 05/14/17 09:25 Pulse Ox 88 05/14/17 09:46 Intake & Output 05/13/17 05/14/17 05/14/17 18:59 06:59 18:59 Intake Total 1554.083 843.583 Output Total 550 Balance 1554.083 293.583 Weight (lbs) 77.882 kg Intake: Intake, IV Amount 1554.083 693.583 D5-0.9%Ns 1,000 ml @ 40 963.333 543.333 mls/hr IV .Q24H [facility] Rx#: [id number] Diltiazem 125 mg In 140.75 50.25 Dextrose 5% 100 ml @ 5 MG /HR 5 mls/hr IV TITR [facility] Rx#:[id number] Meropenem 500 mg In 200 100 Sodium Chloride 0.9% 100 ml @ 100 mls/hr IV Q8H [facility] Rx#:[id number] Vancomycin HCl 1 gm In 250 Dextrose 5% 250 ml @ 165 mls/hr IV Q24H [facility] Rx#: [id number] Other 150 Output: Urine 550 Stool 0 Other: # Bowel Movements 0 Active Medications: Current Medications Acetaminophen (Tylenol) 650 mg PO Q4H PRN PRN Reason: Pain or Fever >101 Acetaminophen (Tylenol 650mg Supp) 650 mg RC Q4H PRN PRN Reason: TEMP >101 Stop: 07/10/17 02:06 Al Hydrox/Mg Hydrox/Simethicone (Maalox) 30 ml PO Q4H PRN PRN Reason: GI DISTRESS Stop: 07/05/17 13:53 Albuterol Sulfate (Albuterol 2.5mg/3ml Neb Ud) 2.5 mg HHN Q6HRT [facility] Stop: 07/05/17 19:59 Last Admin: 05/14/17 08:02 Dose: 2.5 mg Albuterol/Ipratropium (Duoneb Neb) 3 ml HHN Q2HRT PRN PRN Reason: Wheezing Stop: 07/05/17 19:33 Last Admin: 05/14/17 09:45 Dose: 3 ml Amiodarone HCl (Cordarone) 200 mg PO BID [facility] Stop: 07/07/17 08:59 Last Admin: 05/14/17 09:25 Dose: 200 mg Aspirin (Ecotrin) 81 mg PO DAILY [facility] Stop: 07/06/17 08:59 Last Admin: 05/14/17 09:25 Dose: 81 mg Cholecalciferol (Vitamin D3) 5,000 iu PO DAILY [facility] Stop: 07/06/17 08:59 Last Admin: 05/14/17 09:23 Dose: 5,000 iu Diltiazem HCl (Cardizem) 20 mg IVP Q6HR PRN PRN Reason: hr above 120 Stop: 07/09/17 17:59 Last Admin: 05/10/17 20:26 Dose: 20 mg Divalproex Sodium (Depakote Sprinkle) 250 mg PO BID [facility] PRN Reason: Protocol Stop: 07/05/17 16:59 Last Admin: 05/14/17 09:23 Dose: 250 mg Donepezil HCl (Aricept) 10 mg PO DAILY [facility] Stop: 07/06/17 08:59 Last Admin: 05/14/17 09:24 Dose: 10 mg Furosemide (Lasix) 40 mg IVP DAILY [facility] Stop: 07/07/17 12:44 Last Admin: 05/14/17 09:25 Dose: 40 mg Norepinephrine Bitartrate 4 mg (/ Dextrose) 254 mls @ 30.48 mls/hr IV TITR PRN ; Protocol; 8 MCG/MIN PRN Reason: BP MAINTENANCE (PER PROTOCOL) Stop: 07/03/17 09:26 Last Titration: 05/11/17 10:30 Dose: 0 mcg/min, 0 mls/hr Diltiazem HCl 125 mg/ Dextrose 125 mls @ 5 mls/hr IV TITR [facility]ATHLEEN; 5 MG/HR PRN Reason: Protocol Stop: 07/09/17 23:29 Last Admin: 05/14/17 00:15 Dose: 5 mg/hr, 5 mls/hr Meropenem 500 mg/ Sodium (Chloride) 100 mls @ 100 mls/hr IV Q8H [facility] Stop: 07/10/17 01:59 Last Infusion: 05/14/17 06:43 Dose: Infused Vancomycin HCl 1 gm/ Dextrose 250 mls @ 165 mls/hr IV Q24H [facility] Stop: 07/10/17 09:59 Last Infusion: 05/13/17 12:30 Dose: Infused Dextrose/Sodium Chloride (D5-0.9%Ns) 1,000 mls @ 40 mls/hr IV .Q24H [facility] Stop: 07/10/17 15:59 Last Infusion: 05/14/17 06:44 Dose: 40 mls/hr Ipratropium [place] (Atrovent Neb 0.5mg/2.5ml) 0.5 mg HHN Q6HRT [facility] Stop: 07/05/17 19:59 Last Admin: 05/14/17 08:02 Dose: 0.5 mg Levothyroxine Sodium (Synthroid) 0.05 mg PO QDAC [facility] Stop: 07/06/17 07:29 Last Admin: 05/14/17 06:55 Dose: 0.05 mg Lorazepam (Ativan) 0.5 mg PO Q4H PRN; Protocol PRN Reason: Anxiety Stop: 07/05/17 13:53 Last Admin: 05/13/17 09:07 Dose: 0.5 mg Magnesium Hydroxide (Milk Of Magnesia) 30 ml PO HS PRN PRN Reason: Constipation Stop: 07/05/17 13:53 Methylprednisolone Sodium Succinate (Solu-Medrol) 60 mg IVP Q6HR [facility] Stop: 07/06/17 00:00 Last Admin: 05/14/17 06:25 Dose: 60 mg Miscellaneous (Probiotic Screen) 1 ea MC PRN PRN PRN Reason: PROTOCOL Stop: 07/04/17 16:18 Miscellaneous (Vancomycin Iv Per Pharmacy) 1 ea MC PRN [facility] Stop: 07/10/17 01:29 Multivitamins/Vitamin C (Theragran) 1 tab PO DAILY [facility] Stop: 07/06/17 08:59 Last Admin: 05/14/17 09:25 Dose: 1 tab Quetiapine Fumarate (Seroquel) 25 mg PO BID [facility] PRN Reason: Protocol Stop: 07/08/17 08:07 Last Admin: 05/14/17 09:23 Dose: 25 mg Tamsulosin HCl (Flomax) 0.4 mg PO DAILY [facility] Stop: 07/06/17 08:59 Last Admin: 05/14/17 09:24 Dose: 0.4 mg Zolpidem Tartrate (Ambien) 5 mg PO HS PRN PRN Reason: Insomnia Stop: 07/05/17 20:59 General: No acute distress HEENT: Atraumatic Neck: Supple Cardiovascular: Regular rate, Normal S1, Normal S2 Abdomen: Bowel sounds - Procedures Procedures: Procedures Procedure Code Date ASSISTANCE WITH RESPIRATORY VENTILATION, <24 HRS, CPAP [id number] 05/03/17 POS AIRWAY PRESSURE CPAP 26844 05/03/17 Assessment/Plan - Problem List Patient Problems: All Active Problems INCREASED AGITATION AND POOR ORAL INTAKE (Acute) - Assessment Assessment: 1. Pneumonia. 2. COPD. 3. Psychosis. - Plan Plan: continue icu monitoring continue iv antibiotics as per id levophed titrate as per protocol cpm Nutritional Asmnt/Malnutr-PDOC - Dietary Evaluation Malnutrition Findings (Please click <Entered> for more info): Nutritional Asmnt/Malnutrition Start: 05/08/17 15: 11 Text: Status: Complete Freq: Document 05/08/17 15:12 LCHENG (Rec: 05/08/17 15:24 [email or web address] [id number]) Nutritional Asmnt/Malnutrition Patient General Information Nutritional Screening Moderate Risk Diagnosis PNA, pleural effusion & sepsis Pertinent Medical Hx/Surgical Hx HTN, CAD, hypothyroid, arthritis, dementia, BPH Subjective Information Pt seen sleeping in bed at time of visit. Per notes, PO intake 30-50%. Spoke with RN, pt consumed about 50% of breakfast this morning. Per nurse notes 1, pt was tolerating diet well with assistance. Pt remain on Bipap . Current Diet Order/ Nutrition Support pureed Pertinent Medications vitamin d3, lasix, levaquin, synthroid, theragran, piperacillin, seroquel, Nacl 0 .9% Pertinent Labs 05/08 Na 137, K 4.2, Cl 108, BUN 23, Cr 0.8, Glucose 109, Ca 8.4 Nutritional Hx/Data Height 1.63 m Height (Calculated Centimeters) 162.6 Current Weight (lbs) 55.338 kg Weight (Calculated Kilograms) 55.3 Weight (Calculated Grams) 55787.3 [place] Body Weight 130 % [place] Body Weight 101 Body Mass Index (BMI) 20.9 Weight Status Approriate GI Symptoms GI Symptoms None Difficult in: None Skin Integrity/Comment: bruise redded to left arm, skin tear to right arm Estimated Nutritional Goals BEE in Kcals: Using Current wt Calories/Kcals/Kg 30-35 Kcals Calculated 8529-4014 Protein: Using Current wt Protein g/k.2-1.4 Protein Calculated 66-77 Fluid: ml 1650-1925ml (1ml/kcal) Nutritional Problem 1. Problem Problem inadequate food intake Etiology poor appetite Signs/Symptoms: PO intake 30-50% Malnutrition Alert Protein-Calorie Malnutrition N/A Is there a minimum of two criteria No selected? Query Text:Check all the applicable criteria. A minimum of two criteria are recommended for diagnosis of either severe or non-severe malnutrition. Intervention/Recommendation Comments 1. Recommend Boost Plus BID to increase nutrition intake. RN made aware. 2. Monitor PO intake, wt, labs and skin integrity 3. F/U as moderate risk in 3-5 days, 05/11-05/13 Expected Outcomes/Goals Expected Outcomes/Goals 1. PO intake to meet at least 75% of nutritional needs. 2. Wt stability, skin to remain intact, labs to approach WNL.
[2017-05-14] MEDS ORDERED: Phytonadione 10 MG in Sodium Chloride 0.9% 50 ML IV ONE (13:30)
--- NOTE | 2017-05-14 14:17 | Progress Notes ---
DATE: 05/13/[address] Hurst in his absence. The patient is currently in the hospital. Daughter at bedside. The patient calm at this time, currently with mittens. The patient not really interactive, impoverished, and unfortunately quite frail and ill at this time. Currently with a BiPAP machine on. Vitals were reviewed. Medications were reviewed. ASSESSMENT: The patient not really interactive, impoverished, still restless, still in mittens, but seems calmer. PLAN: Discussed with daughter, Farida. We will monitor and follow up. JOB# [id number]
--- NOTE | 2017-05-14 15:41 | Consultation ---
DATE OF CONSULTATION: 05/14/2017 HEMATOLOGY AND ONCOLOGY CONSULTATION REFERRED BY: Dr. Madrid and Dr. Lyle. REASON FOR CONSULTATION: Thrombocytopenia. HISTORY OF PRESENT ILLNESS: The patient is an 87-year-old male who was initially in geropsych unit and suffered hypoxemia and pneumonia, transferred to the ICU and now on BiPAP. He was noted to have declining platelet count since admission. His admission platelet count were low and they got worse during in the hospital stay. His platelets were 121 and now 41. Also, his admission white count was normal and now is 31.8. The patient is unable to provide history. All the history is gathered from records. His imaging study of the chest showed liver to be cirrhotic and varices of the upper abdomen and ____ underlying chronic liver disease. The patient had persistent elevation of bilirubin and now his bilirubin is 3.1, also worsening renal function. Now, the creatinine is ____ with BUN of 65. CURRENT MEDICATIONS: Aspirin, amiodarone, Depakote, vancomycin among other medications. MEDICAL HISTORY: Psych disorder and COPD. PHYSICAL EXAMINATION: GENERAL: The patient is on Cardizem drip. VITAL SIGNS: Heart rate 110. Blood pressure is stable. On BiPAP. HEENT: Nasogastric tube. No peripheral lymphadenopathy. Jaundiced skin. ABDOMEN: Soft. GENITOURINARY: Bojorquez catheter in place. No hematuria. EXTREMITIES: No edema. LABORATORY DATA: Bilirubin 3.1. Creatinine 1.8. INR 1.66. White count 31.8, hemoglobin 10.5, and platelets 41. Vancomycin level was 37 and now is 23. ASSESSMENT: 1. Preexisting cirrhosis with chronic thrombocytopenia. 2. Worsening thrombocytopenia during hospital stay secondary to medications, mainly vancomycin. Vancomycin level has been high. 3. Hepatic coagulopathy. 4. Chronic kidney disease. RECOMMENDATIONS: We will discontinue aspirin because of the low platelets. Consider holding vancomycin to allow the platelets to recover and also the vancomycin. Blood level has been high. I will administer vitamin K and follow up coagulation, platelets, no need for transfusion now. Thank you for the opportunity to participate in the care of this interesting case with you. JOB# [id number]
[2017-05-14] MEDS ORDERED: Morphine Sulfate 2 mg/mL 1mL Syr IM PRN (21:55)
--- NOTE | 2017-05-20 04:43 | Discharge Summary ---
DATE OF DISCHARGE: 05/14/2017 SUMMARY The patient was admitted on 05/03/2017, patient on 05/14/2017. An 87-year-old patient admitted initially to Geropsych Unit for agitation, aggression, and the patient developed some hypoxemia and was transferred for further evaluation. The chest x-ray showed pneumonia. The patient had COPD in the past, history of smoking in the past. The patient was treated for pneumonia, respiratory failure, hypoxemia, COPD exacerbation, IV antibiotic, nebulizer, Solu-Medrol, etc., and requiring BiPAP. The patient unfortunately went down and the patient in septic shock and was treated and finally the patient's family decided to put him on DNR and his BiPAP was removed and ____ and the patient shortly thereafter on 05/14/2017 at 2203. FINAL DIAGNOSES: Fatal cardiopulmonary arrest secondary to septic shock, secondary to pneumonia, secondary to chronic obstructive pulmonary disease. JOB# [id number]
== END 2017-05-14 22:03 | disposition expired | DRG 871 ==
LOC: ICU 22:37 → TELE 05-09 14:47 → ICU 05-10 23:02
PROVIDERS: ADMIT Internal Medicine; ATTEND Internal Medicine
PROC: 5A09457 Assistance with Respiratory Ventilation, 24-96 Consecutive Hours, Continuous Positive Airway Pressure (ICD-10-PCS; 2017-05-07)
PROC: 5A09457 Assistance with Respiratory Ventilation, 24-96 Consecutive Hours, Continuous Positive Airway Pressure (ICD-10-PCS; principal; 2017-05-11)
DX: A41.9 Sepsis, unspecified organism (principal); J69.0 Pneumonitis due to inhalation of food and vomit; J96.91 Respiratory failure, unspecified with hypoxia; J90 Pleural effusion, not elsewhere classified; R64 Cachexia; D69.6 Thrombocytopenia, unspecified; D68.8 Other specified coagulation defects; J44.1 Chronic obstructive pulmonary disease with (acute) exacerbation; I48.91 Unspecified atrial fibrillation; I25.10 Atherosclerotic heart disease of native coronary artery without angina pectoris; Z66 Do not resuscitate; F29 Unspecified psychosis not due to a substance or known physiological condition; I46.9 Cardiac arrest, cause unspecified; F41.9 Anxiety disorder, unspecified; N40.0 Benign prostatic hyperplasia without lower urinary tract symptoms; E55.9 Vitamin D deficiency, unspecified; T36.8X5A Adverse effect of other systemic antibiotics, initial encounter; F03.90 Unspecified dementia, unspecified severity, without behavioral disturbance, psychotic disturbance, mood disturbance, and anxiety; E03.9 Hypothyroidism, unspecified; K74.60 Unspecified cirrhosis of liver; N18.9 Chronic kidney disease, unspecified; Z68.29 Body mass index [BMI] 29.0-29.9, adult; Z88.8 Allergy status to other drugs, medicaments and biological substances; Z87.891 Personal history of nicotine dependence; Z79.82 Long term (current) use of aspirin; Y92.89 Other specified places as the place of occurrence of the external cause
CPT/HCPCS: 36415-UA; 36600-90; 71045-TC; 71250-TC; 74000-TC; 76857-TC; 80048-TC; 80053-TC; 80164-TC; 80202-TC; 81001-TC; 82140-TC; 82803-TC; 83605; 83735-TC; 83880-TC; 85007-TC; 85025-TC; 85027-TC; 85610-TC; 87070; 87086-90; 90779; 93005; 94660; 94760; 96379; J0282; J1940; J1956; J2001; J2060; J2185; J2543; J2920; J2930; J3370; J3430; J3480; J7030; J7040; J7042; J7613; X3904; X6452; Z7610